=== PATIENT | female | born 1940 | race Caucasian/White ===

== ENCOUNTER 2017-07-07 13:18 | Day surgery (SDC) | payer MEDICARE, OTHER ==
[2017-07-07] MEDS ORDERED: Sodium Chloride 0.9% 5 ML Syringe FLUSH PRN (13:30)
[2017-07-07] MEDS ORDERED: Lactated Ringers 1,000 ML IV SCH (13:30)
[2017-07-07] MEDS ORDERED: Sodium Chloride 0.9% 1,000 ML IV SCH (13:30)
[2017-07-07] MEDS ORDERED: Gatifloxacin 0.5% Ophth Soln 2.5 ML Bot EYERT SCH (13:30)
[2017-07-07] MEDS: Phenylephrine 10% Ophth Soln 5 ML Bot EYERT SCH ×3 (13:59→14:41)
[2017-07-07] MEDS ORDERED: Balanced Salt Solution Plus Ophth Irrig 500 ML Bottle IOCULAR ONE (15:42)
[2017-07-07] MEDS ORDERED: Balanced Salt Solution Ophth Irrig 15 ML Bottle EYERT ONE (15:42)
[2017-07-07] MEDS ORDERED: Water For Irrigation,Sterile 1,500 ML Container IRR ONE (15:42)
[2017-07-07] MEDS ORDERED: Carbachol 0.01% Intraocular 1.5 ML Vial EYERT ONE (15:42)
[2017-07-07] MEDS ORDERED: Dexamethasone/Neomycin/Polymyxin B Ophth Oint 3.5 GM Tube EYERT ONE (15:43)
[2017-07-07] MEDS ORDERED: Lidocaine 1% 10 ML MDV INJECT ONE (15:43)
[2017-07-07] MEDS ORDERED: Lidocaine 2% with EPINEPHrine 1:100,000 20 ML MDV INJECT ONE (15:43)
[2017-07-07] MEDS ORDERED: EPINEPHrine 1 MG/ML SDV ONE (15:43)
[2017-07-07] MEDS ORDERED: Hyaluronate Sodium 1% 0.85 ML Syringe IOCULAR ONE (15:44)
[2017-07-07] MEDS ORDERED: Tetracaine HCl/PF 0.5% 4 ML Bottle EYEBOTH ONE (15:49)
--- NOTE | 2017-07-08 08:22 | OR ---
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 HISTORY: The patient presents at this time having difficulty seeing at a distance. She cannot see hymn numbers at the front of the synagogue. FINDINGS: The patient was taken to the operating room where appropriate anesthesia, sedation and monitoring were provided. A retrobulbar block was given on the right side. The eye was massaged and was found to be appropriately soft. The eye and eyelids were then prepped and draped in the usual sterile manner. A lid speculum was placed. A micro sharp blade was used to enter the anterior chamber inside the limbus superior-temporally. Xylocaine was irrigated into the eye at this site. Healon was irrigated into the eye through this site. Then using a 2.85 mm corneal blade an entry was made into the anterior chamber just inside the limbus temporally. Healon was again irrigated into the eye. Then using a cystitome, the anterior capsulorrhexis was created. The lens nucleus was hydrodissected using a 27 gauge cannula and balanced salt solution. The phacoemulsification unit was introduced through the temporal site and the Jacob spatula through the superior temporal site. In so doing, the lens nucleus was phacoemulsified. The cortical fragments of the lens were removed using the irrigation aspiration unit. The posterior capsule was polished. Healon was irrigated into the eye. The posterior chamber lens was inserted and rotated into position inside the capsular bag. The Healon was irrigated out of the eye. Miostat was irrigated into the eye and the pupil rounded nicely. A single interrupted 10-0 Nylon suture was placed through the temporal corneal incision site. Balanced salt solution was irrigated into the eye. The wound was tested and found to be tight. Maxitrol ointment was placed into the patient's right eye. The eyelids were closed and an eye patch and lee shield were placed. The patient left the operating room in good condition. /[id number]/MODL
== END 2017-07-07 16:15 | disposition home or self-care (01) ==
LOC: KA.SDS 13:18
PROVIDERS: ATTEND Ophthalmology
DX: H25.811 Combined forms of age-related cataract, right eye (principal); N18.3 Chronic kidney disease, stage 3 (moderate); I12.9 Hypertensive chronic kidney disease with stage 1 through stage 4 chronic kidney disease, or unspecified chronic kidney disease; K21.9 Gastro-esophageal reflux disease without esophagitis; F41.9 Anxiety disorder, unspecified; J44.9 Chronic obstructive pulmonary disease, unspecified; E78.5 Hyperlipidemia, unspecified; E66.9 Obesity, unspecified; Z79.899 Other long term (current) drug therapy; Z87.891 Personal history of nicotine dependence; Z68.34 Body mass index [BMI] 34.0-34.9, adult
CPT/HCPCS: 66984; A9270; J0171; J7120; 00142; C1780

== ENCOUNTER 2018-01-30 04:32 | Inpatient (IN) | payer MEDICARE, OTHER, MEDICAID ==
[2018-01-30] MEDS ORDERED: Sodium Chloride 0.9% 5 ML Syringe FLUSH PRN (04:54)
[2018-01-30] MEDS ORDERED: Albuterol/Ipratropium 3.0-0.5 MG/3 ML Neb Soln ONE (05:03)
[2018-01-30] MEDS ORDERED: methylPREDNISolone Sodium Succinate 125 MG/2 ML SDV IVPUSH ONE (05:06)
[2018-01-30] MEDS ORDERED: Albuterol/Ipratropium 3.0-0.5 MG/3 ML Neb Soln NEB ONE (05:06)
--- NOTE | 2018-01-30 05:12 | EDM.PDOC ---
ED HPI GENERAL MEDICAL PROBLEM - General Chief Complaint: Respiratory Problem Stated Complaint: SOB Time Seen by Provider: 01/30/18 05:05 Source of Information: Reports: Patient History Limitations: Reports: No Limitations - History of Present Illness INITIAL COMMENTS - FREE TEXT/NARRATIVE: Patient is a 77-year-old female who presents to the emergency department this morning via EMS with a complaint of shortness of breath. Patient states that 3 days ago she started developing some shortness of breath with activity, which progressed to intermittent wheezing, and at 2 a.m. this morning she found it very difficult to breathe and called 911. EMS responded and gave her breathing treatment in route. When patient presented to emergency department she was in mild respiratory distress and tachypnic. Patient denies fever, chest pain, nausea, vomiting, diarrhea, headache, dizziness, or recent change in medication. Onset: Gradual Duration: Day(s): Severity: Moderate Improves with: Reports: None Worsens with: Reports: None Associated Symptoms: Reports: No Other Symptoms Treatments PRIMARY CARE COORDINATOR: Reports: Breathing Treatments - Related Data Allergies Allergy/AdvReac Type Severity Reaction Status Date / Time No Known Drug Allergies Allergy NKDA Verified 01/30/18 04:50 Home Meds: Home Meds Albuterol Sulfate 2.5 mg IH Q4H PRN 07/06/17 [History] Anastrozole [Arimidex] 1 mg PO DAILY 07/06/17 [History] Fluticasone Propionate [Flovent HFA 100 mcg] 1 puff IH BID 07/06/17 [History] Ipratropium/Albuterol Sulfate [Combivent Respimat Inhal [place]] 1 puff INH Q6H PRN 07/06/17 [History] LORazepam 2 mg PO DAILY 07/06/17 [History] Losartan/Hydrochlorothiazide [Losartan-HCTZ 50-12.5 MG] 1 each PO DAILY [History] Omeprazole 20 mg PO DAILY 07/06/17 [History] Umeclidinium [place] [Incruse Ellipta*] 62.5 mcg IH DAILY 07/06/17 [History] atorvaSTATin Calcium [Atorvastatin Calcium] 20 mg PO QAM 07/06/17 [History] Multivitamin [Multi-Day Vitamins] 1 tab PO DAILY 07/07/17 [History] Past Medical History HEENT History: Reports: Cataract Cardiovascular History: Reports: High Cholesterol, Hypertension Respiratory History: Reports: COPD Gastrointestinal History: Reports: GERD [employer] History: Reports: Endocrine/Metabolic History: Reports: Obesity/BMI 30+ Oncologic (Cancer) History: Reports: Breast Other Oncologic History: radiation only - Infectious Disease History Infectious Disease History: Reports: Chicken Pox, Measles, Mumps - Past Surgical History HEENT Surgical History: Reports: Cataract Surgery, Tonsillectomy Cardiovascular Surgical History: Reports: None Respiratory Surgical History: Reports: None GI Surgical History: Reports: None Female Surgical History: Reports: Breast Biopsy Other Female Surgeries/Procedures: mastectomy Endocrine Surgical History: Reports: None Oncologic Surgical History: Reports: None Social & Family History - Caffeine Use Caffeine Use: Reports: Coffee, Soda Other Caffeine Use: diet ED ROS GENERAL - Review of Systems Review Of Systems: ROS reveals no pertinent complaints other than HPI. Constitutional: Reports: No Symptoms HEENT: Reports: No Symptoms Respiratory: Reports: Shortness of Breath, Wheezing Cardiovascular: Reports: No Symptoms Endocrine: Reports: No Symptoms GI/Abdominal: Reports: No Symptoms : Reports: No Symptoms Musculoskeletal: Reports: No Symptoms Skin: Reports: No Symptoms Neurological: Reports: No Symptoms Psychiatric: Reports: No Symptoms Hematologic/Lymphatic: Reports: No Symptoms Immunologic: Reports: No Symptoms ED EXAM, GENERAL - Physical Exam Exam: See Below Exam Limited By: No Limitations General Appearance: Alert, WD/WN, Mild Distress Eye Exam: Bilateral Eye: Normal Inspection Nose: Normal Inspection, Normal Mucosa, No Blood Throat/Mouth: Normal Inspection, Normal Oropharynx, No Airway Compromise Head: Atraumatic, Normocephalic Neck: Normal Inspection, Supple Respiratory/Chest: Respiratory Distress, Wheezing Cardiovascular: Normal Peripheral Pulses, No Murmur, Tachycardia GI/Abdominal: Normal Bowel Sounds, Soft, Non-Tender Back Exam: Normal Inspection. No: CVA Tenderness (L), CVA Tenderness (R) Extremities: Pedal Edema (2+ bilat) Neurological: Alert, Oriented, Normal Cognition Psychiatric: Normal Affect, Normal Mood Skin Exam: Warm, Dry, Intact, Normal Color, No Rash Lymphatic: No Adenopathy EKG INTERPRETATION EKG Date: 01/30/18 Time: 05:20 Rhythm: Other (Sinus tachycardia\) [place]: Normal P-Wave: Present QRS: Normal ST-T: Other (Nonspecific) Comparison: Change From Previous EKG Course - Vital Signs Last Recorded V/S: Last Vital Signs Temp 97.1 F 01/30/18 04:50 Pulse 105 H 01/30/18 04:50 Resp 40 H 01/30/18 04:50 BP 183/88 H 01/30/18 04:50 Pulse Ox 99 01/30/18 04:50 - Orders/Labs/Meds Orders: Active Orders 24 hr Category Date Time Status Oxygen Therapy [RC] PRN Care 01/30/18 04:54 Active RT Aerosol Therapy [RC] ASDIRECTED Care 01/30/18 05:06 Ordered Chest 1V Frontal [CR] Stat Exams 01/30/18 04:54 Ordered B-TYPE NATRIURETIC PEPTIDE,BNP [CHEM] Stat Lab 01/30/18 04:54 Ordered CBC WITH AUTO DIFF [HEME] Stat Lab 01/30/18 04:54 Ordered COMPREHENSIVE METABOLIC PN,CMP [CHEM] Stat Lab 01/30/18 04:54 Ordered Sodium Chloride 0.9% [Syrex Flush] Med 01/30/18 04:54 Active 5 ml FLUSH Q8HR PRN Saline Lock Insert [OM.PC] Stat Oth 01/30/18 04:54 Ordered Medication Orders Albuterol/Ipratropium (Duoneb 3.0-0.5 Mg/3 Ml) 3 ml NEB ONETIME ONE Stop: 01/30/18 05:07 Methylprednisolone Sodium Succinate (Solu-Medrol) 125 mg IVPUSH ONETIME ONE Stop: 01/30/18 05:07 Sodium Chloride (Syrex Flush) 5 ml FLUSH Q8HR PRN PRN Reason: Keep Vein Open Meds: Medications Generic Name Dose Route Start Last Admin Trade Name Freq PRN Reason Stop Dose Admin Albuterol/Ipratropium 3 ml 01/30/18 05:06 Duoneb 3.0-0.5 Mg/3 Ml NEB 01/30/18 05:07 ONETIME ONE Methylprednisolone Sodium Succinate 125 mg 01/30/18 05:06 Solu-Medrol IVPUSH 01/30/18 05:07 ONETIME ONE Sodium Chloride 5 ml 01/30/18 04:54 Syrex Flush FLUSH Q8HR PRN Keep Vein Open - Re-Assessments/Exams Free Text/Narrative Re-Assessment/Exam: 01/30/18 06:15 Patient afebrile, nontoxic appearing, vital signs stable, sats 95% on 2 L nasal cannula. Wheezing is greatly diminished with just some mild end expiratory persistent. Patient with respiratory rate now 16-20, looks and feels much better. Patient will be admitted and followed. Departure - Departure Time of Disposition: 06:14 Disposition: Admitted As Inpatient 67 Condition: Fair Clinical Impression: COPD exacerbation - Discharge Information Referrals: Samantha Hancock PA-C [Primary Care Provider] - - My Orders Last 24 Hours: My Active Orders 01/30/18 04:54 Oxygen Therapy [RC] PRN Chest 1V Frontal [CR] Stat B-TYPE NATRIURETIC PEPTIDE,BNP [CHEM] Stat CBC WITH AUTO DIFF [HEME] Stat COMPREHENSIVE METABOLIC PN,CMP [CHEM] Stat Sodium Chloride 0.9% [Syrex Flush] 5 ml FLUSH Q8HR PRN Saline Lock Insert [OM.PC] Stat 01/30/18 05:06 RT Aerosol Therapy [RC] ASDIRECTED - Assessment/Plan Last 24 Hours: My Active Orders 01/30/18 04:54 Oxygen Therapy [RC] PRN Chest 1V Frontal [CR] Stat B-TYPE NATRIURETIC PEPTIDE,BNP [CHEM] Stat CBC WITH AUTO DIFF [HEME] Stat COMPREHENSIVE METABOLIC PN,CMP [CHEM] Stat Sodium Chloride 0.9% [Syrex Flush] 5 ml FLUSH Q8HR PRN Saline Lock Insert [OM.PC] Stat 01/30/18 05:06 RT Aerosol Therapy [RC] ASDIRECTED Assessment:: COPD exacerbation Plan: Admit inpatient to Dr. Chavez's service
[2018-01-30] MEDS ORDERED: atorvaSTATin 10 MG Tab PO SCH (09:00)
[2018-01-30] MEDS ORDERED: HYDROCHLOROTHIAZIDE PO SCH (09:00)
[2018-01-30] MEDS ORDERED: LOSARTAN PO SCH (09:00)
[2018-01-30] MEDS: Fluticasone Propionate 110 MCG/Puff 12 GM Inhaler INH SCH ×2 (09:21→19:24)
[2018-01-30] MEDS: LORazepam 0.5 MG Tab PO SCH (09:21)
[2018-01-30] MEDS: Omeprazole 20 MG Cap.CR PO SCH ×2 (10:20→18:39)
[2018-01-30] MEDS: Hydrochlorothiazide 12.5 MG Cap PO SCH (10:20)
[2018-01-30] MEDS: Losartan 50 MG Tab PO SCH (10:20)
[2018-01-30] MEDS: Anastrozole 1 MG Tab **OWN MED PO SCH (10:21)
[2018-01-30] MEDS: Albuterol 0.083% 2.5 MG/3 ML Neb Soln NEB PRN ×3 (10:39→19:32)
[2018-01-30] MEDS: Albuterol/Ipratropium 3.0-0.5 MG/3 ML Neb Soln NEB SCH ×2 (16:59→23:08)
[2018-01-30] MEDS ORDERED: Hydrochlorothiazide 25 MG Tab PO ONE (18:27)
[2018-01-30] MEDS ORDERED: Losartan 50 MG Tab PO ONE (18:28)
[2018-01-30] MEDS: Codeine/guaiFENesin 100mg-10 MG/5 ML Syrup 10 ML Cup PO PRN (18:40)
[2018-01-30] MEDS: Bisacodyl 5 MG Tab PO SCH (21:42)
[2018-01-30] MEDS: atorvaSTATin 10 MG Tab PO SCH (21:42)
[2018-01-30] MEDS ORDERED: Calcium Carbonate 500 MG Tab.Chew PO PRN (22:10)
[2018-01-30] MEDS: Acetaminophen 325 MG Tab PO PRN (23:20)
[2018-01-31] MEDS: Aluminum Hydroxide/Magnesium Hydroxide/Simethicone Susp 30 ML Cup PO PRN ×2 (02:40→08:34)
[2018-01-31] MEDS: Codeine/guaiFENesin 100mg-10 MG/5 ML Syrup 10 ML Cup PO PRN ×3 (02:45→20:17)
[2018-01-31] MEDS: Albuterol/Ipratropium 3.0-0.5 MG/3 ML Neb Soln NEB SCH ×4 (06:23→22:01)
[2018-01-31] MEDS: Omeprazole 20 MG Cap.CR PO SCH (06:33)
[2018-01-31] MEDS: Fluticasone Propionate 110 MCG/Puff 12 GM Inhaler INH SCH ×2 (08:34→20:15)
[2018-01-31] MEDS ORDERED: Ondansetron 4 MG Tab.DIS ONE (08:58)
[2018-01-31] MEDS ORDERED: Ondansetron 4 MG Tab.DIS PO PRN (09:12)
[2018-01-31] MEDS: predniSONE 20 MG Tab PO SCH (09:26)
[2018-01-31] MEDS: Hydrochlorothiazide 12.5 MG Cap PO SCH (09:26)
[2018-01-31] MEDS: LORazepam 0.5 MG Tab PO SCH (09:27)
[2018-01-31] MEDS: Anastrozole 1 MG Tab **OWN MED PO SCH (09:29)
[2018-01-31] MEDS: Losartan 50 MG Tab PO SCH (09:31)
--- NOTE | 2018-01-31 09:53 | PCM.PN ---
- General Info Date of Service: 01/31/18 Admission Dx/Problem (Free Text): Patient is a 77-year-old female who was admitted through the emergency department yesterday for COPD exacerbation. Patient has a long history of COPD and was seen at the clinic by Dr. Chavez on Thursday, January 25. Patient was started on doxycycline then for upper respiratory infection. ER Chest x-ray showed no acute cardiopulmonary process. ER Lab values were within normal limits. She was afebrile, denied chest pain, and vital signs were stable. Patient admitted to the hospital as inpatient for further evaluation and resolution of symptoms. Functional Status: Reports: Pain Controlled - Review of Systems General: Reports: No Symptoms HEENT: Reports: No Symptoms Pulmonary: Reports: Shortness of Breath, Wheezing Cardiovascular: Reports: No Symptoms Gastrointestinal: Reports: No Symptoms Genitourinary: Reports: No Symptoms Musculoskeletal: Reports: No Symptoms Skin: Reports: No Symptoms Neurological: Reports: No Symptoms Psychiatric: Reports: No Symptoms - Patient Data Vitals - Most Recent: Last Vital Signs Temp 97.9 F 01/31/18 06:42 Pulse 83 01/31/18 06:42 Resp 20 01/31/18 06:42 BP 118/53 L 01/31/18 09:31 Pulse Ox 95 01/31/18 06:42 Weight - Most Recent: 185 lb 9.6 oz I&O - Last 24 Hours: Intake & Output 01/30/18 01/31/18 01/31/18 22:59 06:59 14:59 Intake Total 900 250 Output Total 425 350 Balance 475 -100 Imaging Impressions - Last 24 Hours: Chest x-ray shows COPD changes with no acute cardiopulmonary process Med Orders - Current: Current Medications Acetaminophen (Tylenol) 650 mg PO Q4H PRN PRN Reason: Pain (Mild 1-3)/fever Last Admin: 01/30/18 23:20 Dose: 650 mg Al Hydroxide/Mg Hydroxide (Mag-Al Plus) 30 ml PO QID PRN PRN Reason: Heartburn Last Admin: 01/31/18 08:34 Dose: 30 ml Albuterol (Proventil Neb Soln) 2.5 mg NEB Q2H PRN PRN Reason: Shortness Of Breath/wheezing Last Admin: 01/30/18 19:32 Dose: 2.5 mg Albuterol/Ipratropium (Duoneb 3.0-0.5 Mg/3 Ml) 3 ml NEB Q6HRRT [facility] Last Admin: 01/31/18 06:23 Dose: 3 ml Anastrozole (Arimidex) 1 mg PO DAILY [facility] Last Admin: 01/31/18 09:29 Dose: 1 mg Atorvastatin Calcium (Lipitor) 20 mg PO BEDTIME [facility] Last Admin: 01/30/18 21:42 Dose: 20 mg Bisacodyl (Dulcolax) 5 mg PO BEDTIME [facility] Last Admin: 01/30/18 21:42 Dose: 5 mg Calcium Carbonate/Glycine (Tums) 500 - 1,000 mg PO Q4H PRN PRN Reason: Indigestion Last Admin: 01/31/18 00:00 Dose: 1,000 mg Fluticasone Propionate (Flovent Hfa 110 Mcg) 0 gm INH BIDRT [facility] Last Admin: 01/31/18 08:34 Dose: 1 puff Guaifenesin/Codeine Phosphate (Robitussin Ac) 10 ml PO Q6H PRN PRN Reason: Cough Last Admin: 01/31/18 02:45 Dose: 10 ml Hydrochlorothiazide (Hydrochlorothiazide) 12.5 mg PO DAILY [facility] Last Admin: 01/31/18 09:26 Dose: 12.5 mg Lorazepam (Ativan) 2 mg PO DAILY [facility] Last Admin: 01/31/18 09:27 Dose: 2 mg Losartan Potassium (Cozaar) 50 mg PO DAILY [facility] Last Admin: 01/31/18 09:31 Dose: 50 mg Omeprazole (Omeprazole) 20 mg PO DAILY@0700 [facility] Last Admin: 01/31/18 06:33 Dose: 20 mg Ondansetron HCl (Zofran Odt) 4 mg PO Q6H PRN PRN Reason: Nausea/Vomiting Last Admin: 01/31/18 09:00 Dose: 4 mg Prednisone (Prednisone) 20 mg PO WITHBREAKFAST [facility] Last Admin: 01/31/18 09:26 Dose: 20 mg Sodium Chloride (Syrex Flush) 5 ml FLUSH Q8HR PRN PRN Reason: Keep Vein Open Last Admin: 01/31/18 09:30 Dose: 5 ml Umeclidinium [place] (Incruse Ellipta) 62.5 mcg IH DAILY [facility] Last Admin: 01/31/18 08:35 Dose: 1 puff Zolpidem Tartrate (Ambien) 5 mg PO BEDTIME PRN PRN Reason: Insomnia Discontinued Medications Albuterol/Ipratropium (Duoneb 3.0-0.5 Mg/3 Ml) 3 ml NEB ONETIME ONE Stop: 01/30/18 05:07 Last Admin: 01/30/18 05:05 Dose: 3 ml Albuterol/Ipratropium (Duoneb 3.0-0.5 Mg/3 Ml) Confirm Administered Dose 3 ml .ROUTE .STK-MED ONE Stop: 01/30/18 05:04 Last Admin: 01/30/18 05:26 Dose: Not Given Atorvastatin Calcium (Lipitor) 20 mg PO QAM [facility] Last Admin: 01/30/18 11:13 Dose: Not Given Doxycycline Hyclate (Vibramycin) 100 mg PO BID [facility] Last Admin: 01/30/18 10:37 Dose: 100 mg Hydrochlorothiazide (Hydrochlorothiazide) 12.5 mg PO ONETIME ONE Stop: 01/30/18 18:28 Last Admin: 01/30/18 18:38 Dose: 12.5 mg Losartan Potassium (Cozaar) 50 mg PO ONETIME ONE Stop: 01/30/18 18:29 Last Admin: 01/30/18 18:39 Dose: 50 mg Methylprednisolone Sodium Succinate (Solu-Medrol) 125 mg IVPUSH ONETIME ONE Stop: 01/30/18 05:07 Last Admin: 01/30/18 05:25 Dose: 125 mg Non-Formulary Medication (Losartan/Hydrochlorothiazide) 1 each PO DAILY [facility] Doxycycline 100 Mg (TabOwn Med) 100 each PO BID [facility] Last Admin: 01/31/18 09:29 Dose: 100 each Ondansetron HCl (Zofran Odt) Confirm Administered Dose 4 mg .ROUTE .STK-MED ONE Stop: 01/31/18 08:59 Last Admin: 01/31/18 09:20 Dose: Not Given - Exam Quality Assessment: Supplemental Oxygen General: Alert, Oriented HEENT: Pupils Equal, Pupils Reactive Neck: Supple Lungs: Wheezing (Faint End expiratory) Cardiovascular: Regular Rate, Regular Rhythm, No Murmurs GI/Abdominal Exam: Normal Bowel Sounds, Soft, Non-Tender, No Organomegaly, No Distention, No Abnormal Bruit, No Mass Extremities: Normal Inspection, Pedal Edema (1+ pedal edema bilateral / no change ) Skin: Warm, Dry, Intact Neurological: No New Focal Deficit Psy/Mental Status: Alert, Normal Affect, Normal Mood Physical Findings Comments:: Patient appears much improved, respiratory rate 12, currently on 2 L nasal cannula for sat of 95%. Denies chest pain or shortness of breath. - Problem List Review Problem List Initiated/Reviewed/Updated: Yes - My Orders Last 24 Hours: My Active Orders 01/30/18 09:00 Anastrozole [Arimidex] 1 mg PO DAILY Hydrochlorothiazide 12.5 mg PO DAILY LORazepam [Ativan] 2 mg PO DAILY Losartan [Cozaar] 50 mg PO DAILY 01/30/18 11:30 Umeclidinium [place] [Incruse Ellipta] 62.5 mcg IH DAILY 01/30/18 17:00 Albuterol/Ipratropium [DuoNeb 3.0-0.5 MG/3 ML] 3 ml NEB Q6HRRT 01/30/18 18:20 Codeine/guaiFENesin [Robitussin AC] 10 ml PO Q6H PRN 01/30/18 18:42 RESPIRATORY CULT [MREF] Routine 01/30/18 21:00 Bisacodyl [Dulcolax] 5 mg PO BEDTIME atorvaSTATin [Lipitor] 20 mg PO BEDTIME 01/30/18 22:10 Calcium Carbonate [Tums] 500 - 1,000 mg PO Q4H PRN 01/31/18 02:34 Alum Hydrox/Mag Hydrox/[place] [Mag-Al Plus] 30 ml PO QID PRN 01/31/18 08:00 predniSONE 20 mg PO WITHBREAKFAST 01/31/18 09:12 Ondansetron [Zofran ODT] 4 mg PO Q6H PRN 01/31/18 09:45 Zolpidem [Ambien] 5 mg PO BEDTIME PRN 01/31/18 09:46 Remove [place] Catheter [Urinary Catheter Removal] [RC] Per Unit Routine - Assessment Assessment:: Patient gradually improving. Currently on albuterol Atrovent nebulizers 4 times a day and 20 mg prednisone daily. Had an episode of gastric discomfort and vomiting 1 this morning. Patient given 4 mg Zofran ODT and symptoms resolved. Denies abdominal pain at this time. Patient's 2 daughters were at bedside and discussed initial ER presentation, progression, and plan with them in detail. - Plan Plan:: Patient steadily improving. Looks much better, in good spirits, and daughters at bedside. Daughters would like to take patient home with them upon discharge. Will anticipate discharge tomorrow if symptoms continue progressing well. Doxycycline had been given over the past 7 days and will be discontinued after dosage today. Patient remains afebrile and respiratory status much improved.
[2018-01-31] MEDS ORDERED: cefTRIAXone 1 GM Vial IVPUSH ONE (10:56)
[2018-01-31] MEDS: Albuterol 0.083% 2.5 MG/3 ML Neb Soln NEB PRN (14:41)
[2018-01-31] MEDS: atorvaSTATin 10 MG Tab PO SCH (20:15)
[2018-01-31] MEDS: Bisacodyl 5 MG Tab PO SCH (20:15)
[2018-01-31] MEDS: Acetaminophen 325 MG Tab PO PRN (20:16)
[2018-01-31] MEDS: Zolpidem 5 MG Tab PO PRN (22:12)
[2018-02-01] MEDS: Albuterol 0.083% 2.5 MG/3 ML Neb Soln NEB PRN ×4 (01:54→18:43)
[2018-02-01] MEDS: Codeine/guaiFENesin 100mg-10 MG/5 ML Syrup 10 ML Cup PO PRN ×2 (02:07→12:26)
[2018-02-01] MEDS: Albuterol/Ipratropium 3.0-0.5 MG/3 ML Neb Soln NEB SCH ×4 (05:20→23:24)
[2018-02-01] MEDS: Omeprazole 20 MG Cap.CR PO SCH (06:24)
[2018-02-01] MEDS: Fluticasone Propionate 110 MCG/Puff 12 GM Inhaler INH SCH ×2 (08:53→20:06)
[2018-02-01] MEDS: Hydrochlorothiazide 12.5 MG Cap PO SCH (09:27)
[2018-02-01] MEDS: Losartan 50 MG Tab PO SCH (09:27)
[2018-02-01] MEDS: predniSONE 20 MG Tab PO SCH (09:27)
[2018-02-01] MEDS: LORazepam 0.5 MG Tab PO SCH (09:28)
[2018-02-01] MEDS: UMECLIDINIUM BROMIDE 62.5 MCG INH SCH (09:53)
[2018-02-01] MEDS: DOXYCYCLINE 100 MG PO SCH ×2 (10:16→20:55)
[2018-02-01] MEDS: ANASTROZOLE 1 MG PO SCH (10:17)
[2018-02-01] MEDS: cefTRIAXone 1 GM Vial IVPUSH SCH (10:17)
[2018-02-01] MEDS: Anastrozole 1 MG Tab **OWN MED PO SCH (10:25)
[2018-02-01] MEDS ORDERED: methylPREDNISolone Sodium Succinate 125 MG/2 ML SDV IVPUSH ONE (13:00)
[2018-02-01] MEDS: Budesonide 0.5 MG/2 ML Neb Susp NEB SCH ×2 (13:16→20:54)
[2018-02-01] MEDS: Acetaminophen 325 MG Tab PO PRN (19:14)
--- NOTE | 2018-02-01 20:26 | PN ---
02/01/2018 PATIENT NAME: JERE MCKNIGHT SUBJECTIVE: This is a 77-year-old female who was admitted to the hospital through the emergency room on 01/30/2018. At that time, she was experiencing shortness of breath. She was brought to the emergency room by ambulance. She does have a past history of COPD. She was admitted with a diagnosis of COPD exacerbation. Today prior to admission, she was prescribed doxycycline for empiric coverage of chronic bronchitis. The patient does easily acquire pneumonia. She has been taking oral doxycycline in the hospital as well as oral prednisone at a low dose of 20 mg daily. She has also been found to have a urinary tract infection and received ceftriaxone 1 g yesterday intravenously. Cultures on the urine are pending. Initial white count on 01/30/2018 was 14.5, that has normalized today at 8.7. Her hemoglobin, however, has dropped from 11.7 to 9.4. Sodium was marginally low on admission at 133, today is 128. Chloride was 96 on admission and is now 88. Carbon dioxide is 34.1. BUN is elevated today at 28. AST is elevated at 44. Creatinine is normal at 1.12 with an estimated GFR of 47. She did have a BNP on admission which was 97. The patient has continued to have expiratory wheezing. She is on oral steroids and receiving DuoNebs as well as albuterol. She has not received nebulized steroids. The patient overall feels as though she has not improved considerably. She does not feel ready to go home. She still has some shortness of breath and requires oxygen to maintain a saturation of 94%. Her oxygen is currently at 3 L/minute. She also has not had a spectacular appetite and notes that she has not had a bowel movement since she has been admitted. She has been drinking prune juice with no results. She was eating breakfast at the time of my interview, and her appetite appears good. PHYSICAL EXAMINATION: VITAL SIGNS: Temp is 98.5, pulse 87, respirations 16, blood pressure 119/55, O2 saturation is 94% on 3 L of oxygen. SKIN: Pale, warm, dry to touch. CARDIAC: Reveals S1, S2 to be normal. Rate and rhythm are regular. No murmur, click, or gallop is auscultated. LUNGS: Have expiratory wheezes in all pierre. No rales. No significant rhonchi. ABDOMEN: Soft, nontender. Bowel sounds are present in all four quadrants. There is some mild generalized edema. IMPRESSION: 1. Acute exacerbation of chronic obstructive pulmonary disease and chronic bronchitis. She will continue on doxycycline 100 mg b.i.d. until discharge and after discharge for a total of 10 days. She will continue on oral prednisone. I did get a call after I had finished doing rounds on the patient with a report from the in-charge nurse that the patient has had episodes of coughing where she desaturates into the 80s and has a difficult time catching her breath. She does have cough medicine prescribed and has received it as well. I did give her a one time dose of Solu-Medrol 125 mg intravenously today. She will also start on Pulmicort 0.5 mg in 3 mL per nebulizer b.i.d. 2. Hyponatremia/hypochloremia. We will restrict her fluids to 1500 mL per day. Labs will be repeated tomorrow to include a CBC as well as CMP. 3. Anemia, question etiology. If still low tomorrow, we will add iron studies on to her lab work. 4. Constipation. She will continue with prune juice. I did offer milk of magnesia, however, she declined at this time. 5. Deconditioning. She will have a physical therapy consultation. We will keep her as an inpatient at this time. Upon discharge, it is unclear at this point whether she will be discharged into the care of her daughter who lives in [place]. The patient has friends in the area and would like to stay in this area; however, she lives alone. She will be a candidate for home health and other community services. There also may be a consideration for swing bed for strengthening for deconditioning. I will see her tomorrow. If there is any change in her condition, the nursing staff will notify me. I did discuss the case over the phone with Dr. Essence Chavez who is the patient's attending physician and primary care provider, and she agrees with my findings. /[id number]/MODL
[2018-02-01] MEDS: atorvaSTATin 10 MG Tab PO SCH (20:54)
[2018-02-01] MEDS: Bisacodyl 5 MG Tab PO SCH (20:54)
[2018-02-01] MEDS: Zolpidem 5 MG Tab PO PRN (23:24)
[2018-02-02] MEDS: Aluminum Hydroxide/Magnesium Hydroxide/Simethicone Susp 30 ML Cup PO PRN (00:24)
[2018-02-02] MEDS: Codeine/guaiFENesin 100mg-10 MG/5 ML Syrup 10 ML Cup PO PRN (03:01)
[2018-02-02] MEDS: Albuterol/Ipratropium 3.0-0.5 MG/3 ML Neb Soln NEB SCH ×2 (05:37→10:13)
[2018-02-02] MEDS: Omeprazole 20 MG Cap.CR PO SCH (06:43)
[2018-02-02] MEDS: Budesonide 0.5 MG/2 ML Neb Susp NEB SCH (07:20)
[2018-02-02] MEDS: ANASTROZOLE 1 MG PO SCH (08:12)
[2018-02-02] MEDS: cefTRIAXone 1 GM Vial IVPUSH SCH (08:12)
[2018-02-02] MEDS: Losartan 50 MG Tab PO SCH (08:14)
[2018-02-02] MEDS: predniSONE 20 MG Tab PO SCH (08:14)
[2018-02-02] MEDS: Hydrochlorothiazide 12.5 MG Cap PO SCH (08:14)
[2018-02-02] MEDS: LORazepam 0.5 MG Tab PO SCH (08:17)
[2018-02-02] MEDS: UMECLIDINIUM BROMIDE 62.5 MCG INH SCH (09:27)
[2018-02-02] MEDS: Fluticasone Propionate 110 MCG/Puff 12 GM Inhaler INH SCH (09:36)
[2018-02-02] MEDS: DOXYCYCLINE 100 MG PO SCH (09:58)
[2018-02-02] MEDS ORDERED: Codeine/guaiFENesin 100mg-10 MG/5 ML Syrup 10 ML Cup PO PRN (10:00)
[2018-02-02] MEDS ORDERED: Ondansetron 4 MG Tab.DIS PO PRN (10:00)
[2018-02-02] MEDS ORDERED: cefTRIAXone 1 GM Vial IVPUSH SCH (10:00)
[2018-02-02] MEDS ORDERED: Aluminum Hydroxide/Magnesium Hydroxide/Simethicone Susp 30 ML Cup PO PRN (10:00)
[2018-02-02] MEDS ORDERED: Zolpidem 5 MG Tab PO PRN (10:00)
[2018-02-03] MEDS ORDERED: Hydrochlorothiazide 12.5 MG Cap PO SCH (09:00)
--- NOTE | 2018-02-04 11:33 | DISCH ---
HOSPITAL COURSE: This is 77-year-old female who was admitted through the emergency room on 01/30/2018 with acute on chronic exacerbation of COPD. She has improved from a respiratory standpoint, however, has been noted to be deconditioned and has had a physical therapy consultation. She does qualify for swing-bed care for physical therapy to include strengthening. The patient does plan to go home after she is discharged from the hospital. She has been treated with doxycycline orally for empiric coverage of chronic bronchitis, and she has also been treated with Rocephin 1 g IV daily for coverage of a urinary tract infection. Urine cultures are pending. Lab results yesterday were significant for a hemoglobin drop from 11.7 the day prior to 9.4 yesterday. Today, her hemoglobin is 10.2. I do plan to add iron studies on to her lab draw from this morning. Her admission sodium was 133. Yesterday, her sodium went down to 128. We did start her on a fluid restriction. Today her sodium is 127. Chloride has improved from 88 to 91. White count has normalized from 14.5 on admission to 9.1. Urine cultures are still pending. The patient does feel somewhat better. She had several episodes of coughing yesterday with desaturations and a difficult time catching her breath. We did change her oral prednisone to IV Solu-Medrol. We also added budesonide per nebulizer. She had been taking Flovent per inhaler up until that point. She has improved and is requiring 2 L of oxygen, where she was requiring 3 L in the past. PHYSICAL EXAMINATION: VITAL SIGNS: Temp is 96.2, pulse 92, respirations 18, blood pressure 126/65, her oxygen saturation is 95 on 2 L of oxygen. SKIN: Warm and dry to touch with some generalized edema. CARDIAC: Reveals S1, S2 to be normal. Rate and rhythm are regular. No murmur, click, or gallop is auscultated. LUNGS: Sound clear today without the expiratory wheezes that were auscultated yesterday. I do not auscultate any rales or rhonchi today. IMPRESSION: 1. Chronic obstructive pulmonary disease. She will continue on oral doxycycline as well as DuoNeb and albuterol as well as budesonide per nebulizer. We will continue Solu-Medrol at 80 mg IV b.i.d. She is improving from a respiratory standpoint. 2. Deconditioning. She did have a physical therapy consultation yesterday with need for strengthening prior to discharge. She will be transferred to [facility] bed care today to complete physical therapy sessions. Her plan is to return home into a living situation where she lives by herself. She does have daughters who are visiting with her. One daughter, Britni, lives in [place] and would like her mother to come and live with her, however, the patient is resistant to this idea. 3. Anemia, etiology unclear. I did add iron studies on to her lab work today. 4. Hyponatremia. We will continue her fluid restriction of 1500 mL per day. We will add sodium chloride tablets 1 g b.i.d. 5. Urinary tract infection. She will continue on ceftriaxone until results of the urine culture are known. 6. Hypertension. This is well controlled with losartan. I have communicated my findings to Dr. Essence Chavez who is the patient's attending physician as well as her primary care provider. She agrees with my findings. /[id number]/MODL
== END 2018-02-02 10:00 | disposition swing bed (61) | DRG 191 ==
LOC: KA.ED 04:32 → KA.MS 06:08
PROVIDERS: ADMIT Internal Medicine; ATTEND Internal Medicine
DX: J44.1 Chronic obstructive pulmonary disease with (acute) exacerbation (principal); E78.00 Pure hypercholesterolemia, unspecified; N39.0 Urinary tract infection, site not specified; K21.9 Gastro-esophageal reflux disease without esophagitis; Z85.3 Personal history of malignant neoplasm of breast; E87.1 Hypo-osmolality and hyponatremia; M62.81 Muscle weakness (generalized); D64.9 Anemia, unspecified; I10 Essential (primary) hypertension; K59.00 Constipation, unspecified; Z79.899 Other long term (current) drug therapy
CPT/HCPCS: 36415; 71045; 80053; 81001; 83880; 84484; 85025; 87070; 87086; 87205; 94640; 94640-76; 96374; 97162-GP; 99285; A9270-GY; J0696; J2930; J7620-GY

== ENCOUNTER 2018-02-02 09:31 | Inpatient (IN) | payer MEDICARE, OTHER, MEDICAID ==
[2018-02-02] MEDS ORDERED: Albuterol 0.083% 2.5 MG/3 ML Neb Soln NEB PRN (10:26)
[2018-02-02] MEDS ORDERED: Calcium Carbonate 500 MG Tab.Chew PO PRN (10:31)
[2018-02-02] MEDS ORDERED: Ondansetron 4 MG Tab.DIS PO PRN (10:43)
[2018-02-02] MEDS ORDERED: Albuterol/Ipratropium 3.0-0.5 MG/3 ML Neb Soln NEB SCH (11:00)
[2018-02-02] MEDS: methylPREDNISolone Sodium Succinate 125 MG/2 ML SDV IVPUSH SCH ×2 (12:20→17:38)
[2018-02-02] MEDS: Sodium Chloride 1 GM Tab PO SCH ×2 (12:20→21:34)
[2018-02-02] MEDS ORDERED: Aluminum Hydroxide/Magnesium Hydroxide/Simethicone Susp 30 ML Cup PO PRN (13:00)
[2018-02-02] MEDS ORDERED: Sodium Chloride 0.9% 5 ML Syringe FLUSH PRN (14:00)
[2018-02-02] MEDS: Albuterol/Ipratropium 3.0-0.5 MG/3 ML Neb Soln NEB SCH ×2 (17:38→22:47)
[2018-02-02] MEDS: Budesonide 0.5 MG/2 ML Neb Susp NEB SCH (20:09)
[2018-02-02] MEDS: Codeine/guaiFENesin 100mg-10 MG/5 ML Syrup 10 ML Cup PO PRN (20:27)
[2018-02-02] MEDS: atorvaSTATin 10 MG Tab PO SCH (21:32)
[2018-02-02] MEDS: Bisacodyl 5 MG Tab PO SCH (21:32)
[2018-02-02] MEDS: DOXYCYCLINE 100 MG PO SCH (21:33)
[2018-02-02] MEDS: Zolpidem 5 MG Tab PO PRN (21:51)
[2018-02-03] MEDS: Codeine/guaiFENesin 100mg-10 MG/5 ML Syrup 10 ML Cup PO PRN ×3 (03:56→20:12)
[2018-02-03] MEDS: Albuterol/Ipratropium 3.0-0.5 MG/3 ML Neb Soln NEB SCH ×4 (06:17→22:41)
[2018-02-03] MEDS: Omeprazole 20 MG Cap.CR PO SCH (06:20)
[2018-02-03] MEDS: Budesonide 0.5 MG/2 ML Neb Susp NEB SCH ×2 (07:37→19:54)
[2018-02-03] MEDS ORDERED: predniSONE 20 MG Tab PO SCH (08:00)
[2018-02-03] MEDS: methylPREDNISolone Sodium Succinate 125 MG/2 ML SDV IVPUSH SCH ×2 (08:34→16:12)
[2018-02-03] MEDS: Losartan 50 MG Tab PO SCH (08:39)
[2018-02-03] MEDS: Sodium Chloride 1 GM Tab PO SCH ×2 (08:40→20:00)
[2018-02-03] MEDS: Hydrochlorothiazide 12.5 MG Cap PO SCH (08:40)
[2018-02-03] MEDS: DOXYCYCLINE 100 MG PO SCH ×2 (08:42→20:00)
[2018-02-03] MEDS: ANASTROZOLE 1 MG PO SCH (08:42)
[2018-02-03] MEDS: cefTRIAXone 1 GM Vial IVPUSH SCH (08:42)
[2018-02-03] MEDS: LORazepam 0.5 MG Tab PO SCH (08:49)
[2018-02-03] MEDS: UMECLIDINIUM BROMIDE 62.5 MCG INH SCH (08:55)
[2018-02-03] MEDS ORDERED: Bisacodyl 10 MG Supp RECTAL PRN (09:14)
[2018-02-03] MEDS: Magnesium Hydroxide 400 MG/5 ML Susp 30 ML Cup PO PRN (11:44)
[2018-02-03] MEDS: Acetaminophen 325 MG Tab PO PRN (12:54)
[2018-02-03] MEDS: Bisacodyl 5 MG Tab PO SCH (20:00)
[2018-02-03] MEDS: atorvaSTATin 10 MG Tab PO SCH (20:00)
[2018-02-03] MEDS: Zolpidem 5 MG Tab PO PRN (22:54)
[2018-02-04] MEDS: Magnesium Hydroxide 400 MG/5 ML Susp 30 ML Cup PO PRN (05:23)
[2018-02-04] MEDS: Albuterol/Ipratropium 3.0-0.5 MG/3 ML Neb Soln NEB SCH ×4 (05:30→22:17)
[2018-02-04] MEDS: Omeprazole 20 MG Cap.CR PO SCH (06:17)
[2018-02-04] MEDS: Budesonide 0.5 MG/2 ML Neb Susp NEB SCH ×2 (07:24→20:33)
[2018-02-04 07:40] LABS: ANION GAP 4.5 mmol/L (5-15)
[2018-02-04] MEDS: methylPREDNISolone Sodium Succinate 125 MG/2 ML SDV IVPUSH SCH (08:30)
[2018-02-04] MEDS: cefTRIAXone 1 GM Vial IVPUSH SCH (08:32)
[2018-02-04] MEDS: DOXYCYCLINE 100 MG PO SCH ×2 (08:34→20:36)
[2018-02-04] MEDS: ANASTROZOLE 1 MG PO SCH (08:35)
[2018-02-04] MEDS: LORazepam 0.5 MG Tab PO SCH (08:35)
[2018-02-04] MEDS: Sodium Chloride 1 GM Tab PO SCH ×2 (08:36→20:36)
[2018-02-04] MEDS: Hydrochlorothiazide 12.5 MG Cap PO SCH (08:36)
[2018-02-04] MEDS: Losartan 50 MG Tab PO SCH (08:38)
[2018-02-04] MEDS ORDERED: Sodium Chloride 0.9% 250 ML IV SCH (09:00)
[2018-02-04] MEDS: UMECLIDINIUM BROMIDE 62.5 MCG INH SCH (09:22)
[2018-02-04] MEDS ORDERED: Sodium Chloride 0.9% 250 ML IV ONE (09:30)
[2018-02-04] MEDS: Polyethylene Glycol 3350 Powder 17 GM Packet PO SCH (09:39)
--- NOTE | 2018-02-04 11:29 | HP ---
HISTORY OF PRESENT ILLNESS: This is a 77-year-old female who is being admitted to [facility] bed for physical therapy treatments for deconditioning. The patient was admitted to the hospital on 01/30/2018 with acute on chronic COPD exacerbation. She has been treated with doxycycline as well as Rocephin. The doxycycline to cover the lungs and Rocephin to cover urinary tract infection. She has required initially oral steroids and now IV steroids. She is improving from a respiratory standpoint. She is using DuoNebs, albuterol, and budesonide per nebulizer. She has also had problems with hyponatremia, which is being treated with oral sodium chloride tablets starting today. She was found to be anemic as well and iron studies are pending. We did a urine culture and the results are pending. The Rocephin will be continued until the results of the urine culture is known. The patient does have a history of COPD and does acquire pneumonia easily. Prior to admission, she was started on doxycycline and then presented to the emergency room on 01/30 with a subsequent admission. She has a history of hypertension, which is well controlled with losartan as well as hydrochlorothiazide. She has a history of gastroesophageal reflux disease for which she uses omeprazole. She does have a history of congestive heart failure. Her BNP on admission was normal. PAST SURGICAL HISTORY: Includes cataract surgery, tonsillectomy, breast biopsy as well as mastectomy of the right breast. SOCIAL HISTORY: She does live alone. She has two daughters, which have been visiting her. She does not use any illicit drugs. She does not use tobacco products. She does drink coffee and diet soda with caffeine. REVIEW OF SYSTEMS: CONSTITUTIONAL: No fever, weight loss or weight gain, fatigue. No headache, visual changes or dysphagia. No chest pain or palpitations. RESPIRATORY: Please see HPI. GI: No abdominal pain, nausea, vomiting, diarrhea. She has had some constipation, and in inpatient, has been using prune juice. : No urinary complaints in terms of dysuria, urinary frequency, or hematuria. MUSCULOSKELETAL: No pain, decreased range of motion, or swelling of her extremities. She does have some deconditioning, which physical therapy is seeing her for. NEUROLOGIC: No neurological deficits. PHYSICAL EXAMINATION: VITAL SIGNS: She is afebrile, pulse is 92, respirations 18, blood pressure 126/65, O2 saturation is 95% on 2 L of oxygen. SKIN: Warm and dry to touch. CARDIAC: Reveals S1, S2 to be normal. Rate and rhythm are regular. No murmur, click, or gallop is auscultated. LUNGS: Have had expiratory wheezes in the past, however, today much improved with no wheezes auscultated today. Rales and rhonchi are not auscultated either. ABDOMEN: Soft, nontender. Bowel sounds present in all four quadrants. EXTREMITIES: There is some mild peripheral edema. IMPRESSION: 1. Chronic obstructive pulmonary disease, acute on chronic exacerbation. She has improved from a respiratory standpoint. She will continue on doxycycline for a total of 10 days. She will continue DuoNeb, albuterol as well as budesonide via nebulizer. She will continue on Solu-Medrol 80 mg b.i.d. and with plan to taper that as she continues to improve. 2. Deconditioning. Physical therapy will work with her to optimize her physical condition for plan to return home with possible home health and other community services to help her after she is discharged. 3. Hyponatremia. We will continue with fluid restriction today as well as add sodium chloride tablets 1 g b.i.d. 4. Urinary tract infection. This is being covered with IV ceftriaxone 1 g daily at this point. Urine cultures are pending. 5. Anemia. We have added iron studies on to her lab work. 6. Hypertension, well controlled with losartan as well as hydrochlorothiazide. 7. Gastroesophageal reflux disease, well controlled with omeprazole. 8. Congestive heart failure. This is not a factor with the patient's hospitalization. Her BNP on admission was normal. /[id number]/MODL
[2018-02-04] MEDS: Codeine/guaiFENesin 100mg-10 MG/5 ML Syrup 10 ML Cup PO PRN ×2 (12:10→19:24)
[2018-02-04] MEDS: Acetaminophen 325 MG Tab PO PRN (19:56)
[2018-02-04] MEDS ORDERED: Menthol 7.6 MG Sugar Free Lozenge PO PRN (20:35)
[2018-02-04] MEDS: Bisacodyl 5 MG Tab PO SCH (20:36)
[2018-02-04] MEDS: atorvaSTATin 10 MG Tab PO SCH (20:37)
[2018-02-04] MEDS: Zolpidem 5 MG Tab PO PRN (22:27)
[2018-02-05] MEDS: Albuterol/Ipratropium 3.0-0.5 MG/3 ML Neb Soln NEB SCH ×4 (05:42→22:46)
[2018-02-05] MEDS: Omeprazole 20 MG Cap.CR PO SCH (06:22)
[2018-02-05] MEDS: Budesonide 0.5 MG/2 ML Neb Susp NEB SCH ×2 (07:18→20:38)
[2018-02-05 08:08] LABS: ANION GAP 6.7 mmol/L (5-15)
[2018-02-05] MEDS: Umeclidinium Bromide 62.5 MCG 30 Puff Inhaler IH SCH (09:11)
[2018-02-05] MEDS: Polyethylene Glycol 3350 Powder 17 GM Packet PO SCH (09:29)
[2018-02-05] MEDS: Hydrochlorothiazide 12.5 MG Cap PO SCH (09:30)
[2018-02-05] MEDS: Anastrozole 1 MG Tab PO SCH (09:31)
[2018-02-05] MEDS: Losartan 50 MG Tab PO SCH (09:32)
[2018-02-05] MEDS: DOXYCYCLINE 100 MG PO SCH ×2 (09:32→20:46)
[2018-02-05] MEDS: Sodium Chloride 1 GM Tab PO SCH ×2 (09:33→20:46)
[2018-02-05] MEDS: methylPREDNISolone Sodium Succinate 125 MG/2 ML SDV IVPUSH SCH (09:39)
[2018-02-05] MEDS: LORazepam 0.5 MG Tab PO SCH (09:42)
[2018-02-05] MEDS: cefTRIAXone 1 GM Vial IVPUSH SCH (09:42)
[2018-02-05] MEDS: Codeine/guaiFENesin 100mg-10 MG/5 ML Syrup 10 ML Cup PO PRN (16:22)
[2018-02-05] MEDS: atorvaSTATin 10 MG Tab PO SCH (20:46)
[2018-02-05] MEDS: Bisacodyl 5 MG Tab PO SCH (20:46)
[2018-02-05] MEDS: Zolpidem 5 MG Tab PO PRN (22:56)
[2018-02-06] MEDS: Albuterol/Ipratropium 3.0-0.5 MG/3 ML Neb Soln NEB SCH ×4 (06:07→22:40)
[2018-02-06] MEDS: Omeprazole 20 MG Cap.CR PO SCH (06:17)
[2018-02-06] MEDS: Budesonide 0.5 MG/2 ML Neb Susp NEB SCH ×2 (08:37→21:07)
[2018-02-06] MEDS: Hydrochlorothiazide 12.5 MG Cap PO SCH (08:38)
[2018-02-06] MEDS: Losartan 50 MG Tab PO SCH (08:38)
[2018-02-06] MEDS: cefTRIAXone 1 GM Vial IVPUSH SCH (08:39)
[2018-02-06] MEDS: DOXYCYCLINE 100 MG PO SCH ×2 (08:39→21:15)
[2018-02-06] MEDS: Polyethylene Glycol 3350 Powder 17 GM Packet PO SCH (08:39)
[2018-02-06] MEDS: Sodium Chloride 1 GM Tab PO SCH ×2 (08:39→21:15)
[2018-02-06] MEDS: methylPREDNISolone Sodium Succinate 125 MG/2 ML SDV IVPUSH SCH (08:39)
[2018-02-06] MEDS: Magnesium Hydroxide 400 MG/5 ML Susp 30 ML Cup PO PRN (08:40)
[2018-02-06] MEDS: LORazepam 0.5 MG Tab PO SCH (08:47)
[2018-02-06] MEDS: Umeclidinium Bromide 62.5 MCG 30 Puff Inhaler IH SCH (08:48)
[2018-02-06] MEDS: Anastrozole 1 MG Tab PO SCH (08:49)
[2018-02-06] MEDS: atorvaSTATin 10 MG Tab PO SCH (21:15)
[2018-02-06] MEDS: Bisacodyl 5 MG Tab PO SCH (21:15)
[2018-02-07] MEDS: Albuterol/Ipratropium 3.0-0.5 MG/3 ML Neb Soln NEB SCH ×4 (06:00→23:13)
[2018-02-07] MEDS: Omeprazole 20 MG Cap.CR PO SCH (06:11)
[2018-02-07 08:07] LABS: ANION GAP 13.1 mmol/L (5-15)
[2018-02-07] MEDS: Budesonide 0.5 MG/2 ML Neb Susp NEB SCH ×2 (08:46→20:54)
[2018-02-07] MEDS: Sodium Chloride 1 GM Tab PO SCH ×2 (08:46→20:54)
[2018-02-07] MEDS: Losartan 50 MG Tab PO SCH (08:47)
[2018-02-07] MEDS: methylPREDNISolone Sodium Succinate 125 MG/2 ML SDV IVPUSH SCH (08:48)
[2018-02-07] MEDS: DOXYCYCLINE 100 MG PO SCH ×2 (08:48→20:55)
[2018-02-07] MEDS: Umeclidinium Bromide 62.5 MCG 30 Puff Inhaler IH SCH (08:49)
[2018-02-07] MEDS: cefTRIAXone 1 GM Vial IVPUSH SCH (08:49)
[2018-02-07] MEDS: Hydrochlorothiazide 12.5 MG Cap PO SCH (08:50)
[2018-02-07] MEDS: Anastrozole 1 MG Tab PO SCH (08:52)
[2018-02-07] MEDS: Polyethylene Glycol 3350 Powder 17 GM Packet PO SCH (08:52)
[2018-02-07] MEDS: LORazepam 0.5 MG Tab PO SCH (08:55)
[2018-02-07] MEDS: Codeine/guaiFENesin 100mg-10 MG/5 ML Syrup 10 ML Cup PO PRN (13:43)
[2018-02-07] MEDS: atorvaSTATin 10 MG Tab PO SCH (20:54)
[2018-02-07] MEDS: Bisacodyl 5 MG Tab PO SCH (20:54)
[2018-02-07] MEDS ORDERED: Bisacodyl 5 MG Tab PO PRN (23:29)
[2018-02-08] MEDS: Albuterol/Ipratropium 3.0-0.5 MG/3 ML Neb Soln NEB SCH ×2 (05:55→11:20)
[2018-02-08] MEDS: Omeprazole 20 MG Cap.CR PO SCH (06:15)
[2018-02-08] MEDS: Budesonide 0.5 MG/2 ML Neb Susp NEB SCH (07:43)
[2018-02-08] MEDS: cefTRIAXone 1 GM Vial IVPUSH SCH (08:31)
[2018-02-08] MEDS: LORazepam 0.5 MG Tab PO SCH (08:35)
[2018-02-08] MEDS: Polyethylene Glycol 3350 Powder 17 GM Packet PO SCH (08:36)
[2018-02-08] MEDS: Sodium Chloride 1 GM Tab PO SCH (08:38)
[2018-02-08] MEDS: Hydrochlorothiazide 12.5 MG Cap PO SCH (08:38)
[2018-02-08] MEDS: DOXYCYCLINE 100 MG PO SCH (08:38)
[2018-02-08] MEDS: Losartan 50 MG Tab PO SCH (08:38)
[2018-02-08] MEDS: methylPREDNISolone Sodium Succinate 125 MG/2 ML SDV IVPUSH SCH (08:39)
[2018-02-08] MEDS: Umeclidinium Bromide 62.5 MCG 30 Puff Inhaler IH SCH (08:49)
[2018-02-08] MEDS: Anastrozole 1 MG Tab PO SCH (08:55)
--- NOTE | 2018-02-08 09:42 | PCM.DCSUM1 ---
Discharge Summary - Hospital Course Free Text/Narrative:: Janina is being discharged from [facility] today. She was an inpatient from - 02/02/18 due to COPD exacerbation. She was also noted to be hyponatremic and salt tabs were started after a fluid restriction caused further worsening of her chronic kidney disease. She was treated with solumedrol, nebs, and doxycycline as well as rocephin, the former for COPD exacerbatino and the latter for UTI (culture negative, however). She did very well with these therapies and was transitioned to a [facility] stay from 02/02/18 - 02/08/18 for PT for strengthening. She is doing very well. Labs have normalized. She does not typically wear oxygen during the day but currently is requiring 2 L to keep sats in the mid 90's and will go home on continuous oxygen. She had, previously , used oxygen at night. She was noted to be anemic as well, iron studies are pending. Sputum culture was normal girma so antibiotics are being discontinued at discharge. Urine culture negative, antibiotics are being discontinued at discharge. She has a heart murmur, TTE will be ordered as an outpatient. She does not have a hx of heart failure and BNP checked with this hospitalization was WNL. She has a hx of CKD, this is stable. She has a hx of HTN, no changes to outpatient meds. She was noted to be hyponatremic, salt tabs started, had correction of sodium and chloride. These tabs will be discontinued at discharge and she will have follow-up labs in a week. At the time of discharge she was feeling markedly improved. She is no longer SOB and her strength has improved. She will be discharged to home with home health for nursing, PT and OT. She requires these services due to health teaching for medication management, to develop an in home therapy program. She will have an in home safety assessment and instruction as well as for strength and endurance training. She is home bound due to decreased strength due to fatigue and weakness as well as having an unsteady gait and exacerbation of her COPD. She will also have in home care from [facility], a [facility] nurse for med set-up as well as senior services for meals on wheels and a personal alert system will be set up by [facility]. Diagnosis: Stroke: No Modified [place] Scale: No Signif.Disability Despite Sympt.Able to Carry Out Usual Act./Duties Modified Oral Scale Score: 1 - Discharge Data Discharge Date: 02/08/18 Discharge Disposition: Home, W Home Health Agency 06 Condition: Good - Discharge Diagnosis/Problem(s) (1) Chronic kidney disease (CKD) SNOMED Code(s): 349528472 ICD Code: N18.9 - CHRONIC KIDNEY DISEASE, UNSPECIFIED Status: Acute Current Visit: Yes (2) Hypertension SNOMED Code(s): 16042427 ICD Code: I10 - ESSENTIAL (PRIMARY) HYPERTENSION Status: Acute Current Visit: Yes (3) COPD (chronic obstructive pulmonary disease) SNOMED Code(s): 79076850 ICD Code: J44.9 - CHRONIC OBSTRUCTIVE PULMONARY DISEASE, UNSPECIFIED Status : Acute Current Visit: Yes (4) Gait instability SNOMED Code(s): 52479742, 298851178 ICD Code: R26.81 - UNSTEADINESS ON FEET Status: Acute Current Visit: Yes (5) Weakness SNOMED Code(s): 44298233 ICD Code: R53.1 - WEAKNESS Status: Acute Current Visit: Yes (6) Hyperlipidemia SNOMED Code(s): 93685238 ICD Code: E78.5 - HYPERLIPIDEMIA, UNSPECIFIED Status: Acute Current Visit : Yes (7) Peripheral edema SNOMED Code(s): 093898457 ICD Code: R60.9 - EDEMA, UNSPECIFIED Status: Acute Current Visit: Yes (8) COPD exacerbation SNOMED Code(s): 387824302 ICD Code: J44.1 - CHRONIC OBSTRUCTIVE PULMONARY DISEASE W (ACUTE) EXACERBATION Status: Acute Current Visit: No (9) Anemia SNOMED Code(s): 704625365 ICD Code: D64.9 - ANEMIA, UNSPECIFIED Status: Acute Current Visit: Yes (10) Heart murmur SNOMED Code(s): 10855185 ICD Code: R01.1 - CARDIAC MURMUR, UNSPECIFIED Status: Acute Current Visit : Yes - Patient Summary/Data Consults: Consultations 02/02/18 10:01 Consult to Physical Therapy [PT Evaluation and Treatment] [CONS] Routine Recommended Follow-up Testing/Procedures: Follow-up with PCP in 1 week and have a BMP. Will schedule for an outpatient TTE. - Patient Instructions Diet: Regular Diet as Tolerated Activity: As Tolerated - Discharge Plan Home Medications: Home Meds Albuterol Sulfate 2.5 mg IH Q4H PRN 07/06/17 [History] Anastrozole [Arimidex] 1 mg PO DAILY 07/06/17 [History] Fluticasone Propionate [Flovent HFA 100 mcg] 1 puff IH BID 07/06/17 [History] Ipratropium/Albuterol Sulfate [Combivent Respimat 20-100 Mcg] 1 puff INH Q6H PRN 07/06/17 [History] LORazepam 2 mg PO DAILY 07/06/17 [History] Losartan/Hydrochlorothiazide [Losartan-HCTZ 50-12.5 MG] 1 each PO DAILY [History] Omeprazole 20 mg PO ACBREAKFAST 07/06/17 [History] Umeclidinium [place] [Incruse Ellipta*] 1 puff IH DAILY 07/06/17 [History] atorvaSTATin Calcium [Atorvastatin Calcium] 20 mg PO BEDTIME 07/06/17 [History] Multivitamin [Multi-Day Vitamins] 1 tab PO DAILY 07/07/17 [History] - Discharge Summary/Plan Comment DC Time >30 min.: Yes Discharge Summary/Plan Comment: Total time for discharge was 45 minutes. - General Info Date of Service: 02/08/18 - Review of Systems Systems Review Comment: 10 point ROS obtained, all pertinent positives listed in HPI, all other systems are negative. - Patient Data Vitals - Most Recent: Last Vital Signs Temp 98.9 F 02/08/18 06:21 Pulse 80 02/08/18 07:43 Resp 24 H 02/08/18 06:21 BP 132/71 02/08/18 08:38 Pulse Ox 92 L 02/08/18 07:43 Weight - Most Recent: 188 lb 11.2 oz I&O - Last 24 hours: Intake & Output 02/07/18 02/08/18 02/08/18 22:59 06:59 14:59 Intake Total 400 150 Balance 400 150 Lab Results - Last 24 hrs: Laboratory Results - last 24 hr 02/08/18 02/08/18 Range/Units 07:20 07:20 WBC 13.7 H (5.0-10.0) 10^3/uL RBC 3.31 L (3.80-5.50) 10^6/uL Hgb 10.2 L (12.0-16.0) g/dL Hct 31.4 L (37.0-47.0) % MCV 95.1 H (82.0-92.0) fL MCH 30.8 (27.0-31.0) pg MCHC 32.4 (32.0-36.0) g/dL RDW 12.0 (11.5-14.5) % Plt Count 321 H (150-300) 10^3/uL MPV 7.2 L (7.4-10.4) fL Neut % (Auto) 75.9 H (50.0-70.0) % Lymph % (Auto) 17.0 L (20.0-40.0) % [place] % (Auto) 6.1 (2.0-8.0) % Eos % (Auto) 0.2 L (1.0-3.0) % Baso % (Auto) 0.8 (0.0-1.0) % Neut # (Auto) 10.5 H (2.5-7.0) 10^3/uL Lymph # (Auto) 2.3 (1.0-4.0) 10^3/uL [place] # (Auto) 0.8 (0.1-0.8) 10^3/uL Eos # (Auto) 0.0 L (0.1-0.3) 10^3/uL Baso # (Auto) 0.1 (0.0-0.1) 10^3/uL Sodium 140 (136-145) mmol/L Potassium 4.1 (3.3-5.3) mmol/L Chloride 101 (98-115) mmol/L Carbon Dioxide 35.1 H (21.0-32.0) mmol/L Anion Gap 8.0 (5-15) mmol/L BUN 31 H (6-25) mg/dL Creatinine 1.26 H (0.51-1.17) mg/dL Est Cr Clr Drug Dosing 30.04 mL/min Estimated GFR (MDRD) 41 mL/min Glucose 92 (70-110) mg/dL Calcium 9.0 (8.7-10.3) mg/dL Total Bilirubin 0.3 (0.2-1.0) mg/dL AST 19 (15-37) U/L ALT 39 (12-78) U/L Alkaline Phosphatase 74 (46-116) IU/L Total Protein 6.3 L (6.4-8.2) g/dL Albumin 3.10 (3.00-4.80) g/dL Med Orders - Current: Current Medications Acetaminophen (Tylenol) 650 mg PO Q4H PRN PRN Reason: Pain (Mild 1-3)/fever Last Admin: 02/04/18 19:56 Dose: 650 mg Al Hydroxide/Mg Hydroxide (Mag-Al Plus) 30 ml PO QID PRN PRN Reason: Heartburn Albuterol (Proventil Neb Soln) 2.5 mg NEB Q2H PRN PRN Reason: Shortness Of Breath/wheezing Last Admin: 02/03/18 03:52 Dose: 2.5 mg Albuterol/Ipratropium (Duoneb 3.0-0.5 Mg/3 Ml) 3 ml NEB Q6HRRT [facility] Last Admin: 02/08/18 05:55 Dose: 3 ml Anastrozole (Arimidex) 1 mg PO DAILY [facility] Last Admin: 02/08/18 08:55 Dose: 1 mg Atorvastatin Calcium (Lipitor) 20 mg PO BEDTIME [facility] Last Admin: 02/07/18 20:54 Dose: 20 mg Bisacodyl (Dulcolax) 5 mg PO BEDTIME [facility] Last Admin: 02/07/18 20:54 Dose: 5 mg Bisacodyl (Dulcolax) 10 mg RECTAL DAILY PRN PRN Reason: Constipation Last Admin: 02/03/18 09:50 Dose: 10 mg Bisacodyl (Dulcolax) 5 mg PO DAILY PRN PRN Reason: Constipation Last Admin: 02/07/18 20:54 Dose: 5 mg Budesonide (Pulmicort) 0.5 mg NEB BIDRT [facility] Last Admin: 02/08/18 07:43 Dose: 0.5 mg Calcium Carbonate/Glycine (Tums) 500 - 1,000 mg PO Q4H PRN PRN Reason: Indigestion Guaifenesin/Codeine Phosphate (Robitussin Ac) 10 ml PO Q6H PRN PRN Reason: Cough Last Admin: 02/07/18 13:43 Dose: 10 ml Hydrochlorothiazide (Hydrochlorothiazide) 12.5 mg PO DAILY [facility] Last Admin: 07/09/18 08:38 Dose: 12.5 mg Lorazepam (Ativan) 2 mg PO DAILY [facility] Last Admin: 02/08/18 08:35 Dose: 2 mg Losartan Potassium (Cozaar) 50 mg PO DAILY [facility] Last Admin: 02/08/18 08:38 Dose: 50 mg Magnesium Hydroxide (Milk Of Magnesia) 30 ml PO DAILY PRN PRN Reason: Constipation Last Admin: 02/06/18 08:40 Dose: 30 ml Menthol ([place] Sugar Free) 1 shekhar PO ASDIRECTED PRN PRN Reason: Sore Throat Last Admin: 02/04/18 21:30 Dose: 1 shekhar Omeprazole (Omeprazole) 20 mg PO DAILY@0700 [facility] Last Admin: 02/08/18 06:15 Dose: 20 mg Ondansetron HCl (Zofran Odt) 4 mg PO Q6H PRN PRN Reason: Nausea/Vomiting Polyethylene Glycol (Miralax) 17 gm PO DAILY [facility] Last Admin: 02/08/18 08:36 Dose: 17 gm Sodium Chloride (Syrex Flush) 5 ml FLUSH Q8HR PRN PRN Reason: Keep Vein Open Last Admin: 02/04/18 08:38 Dose: 5 ml Umeclidinium [place] (Incruse Ellipta) 62.5 mcg IH DAILY [facility] Last Admin: 02/08/18 08:49 Dose: 62.5 mcg Zolpidem Tartrate (Ambien) 5 mg PO BEDTIME PRN PRN Reason: Insomnia Last Admin: 02/05/18 22:56 Dose: 5 mg Discontinued Medications Albuterol/Ipratropium (Duoneb 3.0-0.5 Mg/3 Ml) 3 ml NEB Q6HRRT [facility] Ceftriaxone Sodium (Rocephin) 1 gm IVPUSH Q24H [facility] Last Admin: 02/08/18 08:31 Dose: 1 gm Sodium Chloride (Normal Saline) 250 mls @ 250 mls/hr IV ASDIRECTED [facility] Sodium Chloride (Normal Saline) 250 mls @ 250 mls/hr IV ONETIME@0930 ONE Stop: 02/04/18 10:29 Last Admin: 02/04/18 09:36 Dose: 250 mls/hr Methylprednisolone Sodium Succinate (Solu-Medrol) 80 mg IVPUSH BID@0800,1700 [facility] Last Admin: 02/04/18 08:30 Dose: 80 mg Methylprednisolone Sodium Succinate (Solu-Medrol) 80 mg IVPUSH DAILY [facility] Last Admin: 02/08/18 08:39 Dose: Not Given PtomDoxycycline (100 Mg Tab) 1 each PO BID [facility] Stop: 02/08/18 09:01 Last Admin: 02/08/18 08:38 Dose: 1 each PtomUmeclidinium [place] 62.5 Mcg 30 Puff Inhaler 1 each INH DAILY [facility] Last Admin: 02/04/18 09:22 Dose: 1 each PtomAnastrozole (1 Mg Tab) 1 each PO DAILY [facility] Last Admin: 02/04/18 08:35 Dose: 1 each Prednisone (Prednisone) 20 mg PO WITHBREAKFAST [facility] Sodium Chloride (Sodium Chloride) 1 gm PO BID [facility] Last Admin: 02/08/18 08:38 Dose: Not Given - Exam Quality Assessment: Reports: Supplemental Oxygen General: Reports: Alert, Oriented, Cooperative, No Acute Distress Lungs: Reports: Decreased Breath Sounds, Wheezing (Very minimal end expiratory wheezing at the apices of the lungs bilaterally.) Cardiovascular: Reports: Regular Rate, Regular Rhythm, Murmurs (2/6 systolic murmur) GI/Abdominal Exam: Normal Bowel Sounds
== END 2018-02-08 14:15 | disposition home health service (06) | DRG 191 ==
LOC: KA.MS 10:00
DX: J44.1 Chronic obstructive pulmonary disease with (acute) exacerbation (principal); N39.0 Urinary tract infection, site not specified; E87.1 Hypo-osmolality and hyponatremia; I13.0 Hypertensive heart and chronic kidney disease with heart failure and stage 1 through stage 4 chronic kidney disease, or unspecified chronic kidney disease; N18.9 Chronic kidney disease, unspecified; I50.9 Heart failure, unspecified; D64.9 Anemia, unspecified; R01.1 Cardiac murmur, unspecified; R26.81 Unsteadiness on feet; R53.1 Weakness; E78.5 Hyperlipidemia, unspecified; R60.9 Edema, unspecified; K21.9 Gastro-esophageal reflux disease without esophagitis; Z79.899 Other long term (current) drug therapy
CPT/HCPCS: 36415; 80048; 80053; 82728; 82747; 83540; 83550; 85014; 85025; 94640; 94640-76; 97110-GP; 97161-GP; A9270-GY; J0696; J2930; J7050; J7620-GY

== ENCOUNTER 2019-04-30 18:30 | Emergency (ER) | payer MEDICARE, OTHER ==
--- NOTE | 2019-04-30 18:39 | EDM.PDOC ---
ED HPI GENERAL MEDICAL PROBLEM - General Chief Complaint: General Stated Complaint: BAD COUGH/CONGESTION Time Seen by Provider: 04/30/19 18:34 Source of Information: Reports: Patient History Limitations: Reports: No Limitations - History of Present Illness INITIAL COMMENTS - FREE TEXT/NARRATIVE: 79 YO WF presents to ER complaining of productive cough and worsening shortness of breath x 1 day. Pt has COPD and is currently taking prednisone 5mg daily as well as Combivent and Flovent as needed. Pt reports she noticed her cough had become worse today prompting ER evaluation. Pt uses O2 at home and states she has had to increase the demand on O2. Pt denies fever/chills, no nausea/vomiting , no chest pain. Onset: Today Location: Reports: Generalized Severity: Mild Improves with: Reports: Rest Worsens with: Reports: Breathing Associated Symptoms: Reports: Cough, cough w sputum, Shortness of Breath. Denies: Chest Pain, Diaphoresis, Fever/Chills, Nausea/Vomiting, Weakness - Related Data Allergies Allergy/AdvReac Type Severity Reaction Status Date / Time No Known Drug Allergies Allergy NKDA Verified 04/30/19 18:46 Home Meds: Home Meds Albuterol Sulfate 2.5 mg IH Q4H PRN 07/06/17 [History] Anastrozole [Arimidex] 1 mg PO DAILY 07/06/17 [History] Fluticasone Propionate [Flovent HFA 100 mcg] 1 puff IH BID 07/06/17 [History] Ipratropium/Albuterol Sulfate [Combivent Respimat 20-100 Mcg] 1 puff INH Q6H PRN 07/06/17 [History] LORazepam 2 mg PO DAILY 07/06/17 [History] Losartan/Hydrochlorothiazide [Losartan-HCTZ 50-12.5 MG] 1 each PO DAILY [History] Omeprazole 20 mg PO ACBREAKFAST 07/06/17 [History] Umeclidinium [place] [Incruse Ellipta*] 1 puff IH DAILY 07/06/17 [History] atorvaSTATin Calcium [Atorvastatin Calcium] 20 mg PO BEDTIME 07/06/17 [History] Azithromycin [Zithromax] 250 mg PO DAILY #6 tab 04/30/19 [Rx] predniSONE [Prednisone] 20 mg PO DAILY #8 tablet 04/30/19 [Rx] Past Medical History HEENT History: Reports: Cataract Cardiovascular History: Reports: High Cholesterol, Hypertension Respiratory History: Reports: COPD, Other (See Below) Other Respiratory History: home o2 use Gastrointestinal History: Reports: GERD Genitourinary History: Reports: Urinary Incontinence, Other (See Below) Other Genitourinary History: 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: Neurological History: Reports: Migraines, Other (See Below) Other Neuro History: in the distant past Psychiatric History: Reports: Anxiety Endocrine/Metabolic History: Reports: Obesity/BMI 30+ Oncologic (Cancer) History: Reports: Breast Other Oncologic History: radiation only and mastectomy - Infectious Disease History Infectious Disease History: Reports: Chicken Pox, Measles, Mumps - Past Surgical History HEENT Surgical History: Reports: Cataract Surgery, Tonsillectomy Cardiovascular Surgical History: Reports: None Respiratory Surgical History: Reports: None GI Surgical History: Reports: None Female Surgical History: Reports: Breast Biopsy Other Female Surgeries/Procedures: mastectomy Endocrine Surgical History: Reports: None Oncologic Surgical History: Reports: Mastectomy Social & Family History - Family History Family Medical History: Noncontributory - Caffeine Use Caffeine Use: Reports: Coffee Other Caffeine Use: diet ED ROS GENERAL - Review of Systems Review Of Systems: See Below Constitutional: Reports: No Symptoms HEENT: Reports: No Symptoms Respiratory: Reports: Shortness of Breath, Wheezing, Cough, Sputum. Denies: Pleuritic Chest Pain, Hemoptysis Cardiovascular: Reports: No Symptoms Endocrine: Reports: No Symptoms GI/Abdominal: Reports: No Symptoms : Reports: No Symptoms Musculoskeletal: Reports: No Symptoms Skin: Reports: No Symptoms Neurological: Reports: No Symptoms Psychiatric: Reports: No Symptoms Hematologic/Lymphatic: Reports: No Symptoms Immunologic: Reports: No Symptoms ED EXAM, GENERAL - Physical Exam Exam: See Below Exam Limited By: No Limitations General Appearance: Alert, WD/WN, No Apparent Distress Ears: Normal External Exam, Normal Canal, Hearing Grossly Normal, Normal TMs Nose: Normal Inspection, Normal Mucosa, No Blood Throat/Mouth: Normal Inspection, Normal Lips, Normal Teeth, Normal Gums, Normal Oropharynx, Normal Voice, No Airway Compromise Head: Atraumatic, Normocephalic Neck: Normal Inspection, Supple, Non-Tender, Full Range of Motion Respiratory/Chest: No Respiratory Distress, No Accessory Muscle Use, Chest Non- Tender, Wheezing, Prolonged Expiration. No: Rhonchi, Accessory Muscle Use, Retractions, Splinting Cardiovascular: Normal Peripheral Pulses, Regular Rate, Rhythm, No Edema, No Gallop, No JVD, No Murmur, No Rub GI/Abdominal: Normal Bowel Sounds, Soft, Non-Tender, No Organomegaly, No Distention, No Abnormal Bruit, No Mass Back Exam: Normal Inspection, Full Range of Motion, NT Extremities: Normal Inspection, Normal Range of Motion, Non-Tender, Normal Capillary Refill, No Pedal Edema Neurological: Alert, Oriented, CN II-XII Intact, Normal Cognition, Normal Gait, Normal Reflexes, No Motor/Sensory Deficits Psychiatric: Normal Affect, Normal Mood Skin Exam: Warm, Dry, Intact, Normal Color, No Rash Lymphatic: No Adenopathy Course - Vital Signs Last Recorded V/S: Last Vital Signs Temp 35.8 C 04/30/19 19:09 Pulse 80 04/30/19 19:09 Resp 20 04/30/19 19:09 BP 156/76 H 04/30/19 19:09 Pulse Ox 98 04/30/19 19:22 - Orders/Labs/Meds Orders: Active Orders 24 hr Category Date Time Status Peripheral IV Care [RC] . DIRECTED Care 04/30/19 18:46 Ordered RT Aerosol Therapy [RC] ASDIRECTED Care 04/30/19 18:53 Ordered RT Aerosol Therapy [RC] ASDIRECTED Care 04/30/19 19:30 Ordered Chest 2V [CR] Stat Exams 04/30/19 18:34 Ordered Sodium Chloride 0.9% [Saline Flush] Med 04/30/19 18:45 Ordered 10 ml FLUSH Q8HR PRN Peripheral IV Insertion Adult [OM.PC] Routine Oth 04/30/19 18:45 Ordered Medication Orders Sodium Chloride (Saline Flush) 10 ml FLUSH Q8HR PRN PRN Reason: keep vein open Last Admin: 04/30/19 19:07 Dose: 10 ml Labs: Laboratory Tests 04/30/19 04/30/19 Range/Units 19:15 19:15 WBC 7.34 (5.00-10.00) 10^3/uL RBC 3.13 L (3.80-5.50) 10^6/uL Hgb 10.1 L (12.0-16.0) g/dL Hct 31.0 L (37.0-47.0) % MCV 99.0 H D (82.0-92.0) fL MCH 32.3 H (27.0-31.0) pg MCHC 32.6 (32.0-36.0) g/dL RDW 11.6 (11.5-14.5) % Plt Count 223 (150-400) 10^3/uL MPV 9.6 (7.4-10.4) fL Immature Gran % (Auto) 0.0 (0.0-5.0) % Neut % (Auto) 76.1 H (50.0-70.0) % Lymph % (Auto) 15.8 L (20.0-40.0) % [place] % (Auto) 6.0 (2.0-8.0) % Eos % (Auto) 1.6 (1.0-3.0) % Baso % (Auto) 0.5 (0.0-1.0) % Immature Gran # (Auto) 0.00 (0.00-0.50) 10^3/uL Neut # (Auto) 5.58 (2.50-7.00) 10^3/uL Lymph # (Auto) 1.16 (1.00-4.00) 10^3/uL [place] # (Auto) 0.44 (0.10-0.80) 10^3/uL Eos # (Auto) 0.12 (0.10-0.30) 10^3/uL Baso # (Auto) 0.04 (0.00-0.10) 10^3/uL Sodium 136 (136-145) mmol/L Potassium 4.3 (3.3-5.3) mmol/L Chloride 95 L (98-115) mmol/L Carbon Dioxide 33.6 H (21.0-32.0) mmol/L Anion Gap 11.7 (5-15) mmol/L BUN 23 (6-25) mg/dL Creatinine 1.08 (0.51-1.17) mg/dL Est Cr Clr Drug Dosing TNP Estimated GFR (MDRD) 49 mL/min Glucose 99 (75 - 99) mg/dL Calcium 9.3 (8.7-10.3) mg/dL Total Bilirubin 0.3 (0.2-1.0) mg/dL AST 19 (15-37) U/L ALT 21 (12-78) U/L Alkaline Phosphatase 86 (46-116) IU/L Total Protein 7.3 (6.4-8.2) g/dL Albumin 3.90 (3.00-4.80) g/dL Meds: Medications Generic Name Dose Route Start Last Admin Trade Name Freq PRN Reason Stop Dose Admin Sodium Chloride 10 ml 04/30/19 18:45 04/30/19 19:07 Saline Flush FLUSH 10 ml Q8HR PRN Administration keep vein open Discontinued Medications Generic Name Dose Route Start Last Admin Trade Name Freq PRN Reason Stop Dose Admin Albuterol/Ipratropium 3 ml 04/30/19 18:52 04/30/19 19:06 Duoneb 3.0-0.5 Mg/3 Ml NEB 04/30/19 18:53 3 ml ONETIME ONE Administration Albuterol/Ipratropium 3 ml 04/30/19 19:30 04/30/19 19:42 Duoneb 3.0-0.5 Mg/3 Ml NEB 04/30/19 19:31 3 ml ONETIME ONE Administration Methylprednisolone Sodium Succinate 125 mg 04/30/19 18:52 04/30/19 19:07 Solu-Medrol IVPUSH 04/30/19 18:53 125 mg ONETIME ONE Administration Prednisone 40 mg 04/30/19 19:40 Prednisone PO 04/30/19 19:41 ONETIME ONE - Radiology Interpretation Free Text/Narrative:: CXR- NAD - Re-Assessments/Exams Free Text/Narrative Re-Assessment/Exam: 04/30/19 19:41 Pt able to wean O2 back to 3L. Wheezing resolved after duoneb tx. Pt states she feels much better after treatment. Departure - Departure Time of Disposition: 19:46 Disposition: Home, Self-Care 01 Condition: Good Clinical Impression: COPD (chronic obstructive pulmonary disease) with chronic bronchitis COPD (chronic obstructive pulmonary disease) Qualifiers: COPD type: COPD with acute exacerbation Qualified Code(s): J44.1 - Chronic obstructive pulmonary disease with (acute) exacerbation - Discharge Information Prescriptions: Azithromycin [Zithromax] 250 mg PO DAILY #6 tab predniSONE [Prednisone] 20 mg PO DAILY #8 tablet Instructions: Chronic Obstructive Pulmonary Disease Exacerbation, [id number] Referrals: [place] [Primary Care Provider] - Forms: ED Department Discharge Additional Instructions: 1. discharge home 2. avoid lifting by arms 3. follow up with PCP for further evaluation and treatment 4. return to ER for worsening symptoms - My Orders Last 24 Hours: My Active Orders 04/30/19 18:34 Chest 2V [CR] Stat 04/30/19 18:45 Sodium Chloride 0.9% [Saline Flush] 10 ml FLUSH Q8HR PRN Peripheral IV Insertion Adult [OM.PC] Routine 04/30/19 18:46 Peripheral IV Care [RC] . DIRECTED 04/30/19 18:53 RT Aerosol Therapy [RC] ASDIRECTED 04/30/19 19:30 RT Aerosol Therapy [RC] ASDIRECTED - Assessment/Plan Last 24 Hours: My Active Orders 04/30/19 18:34 Chest 2V [CR] Stat 04/30/19 18:45 Sodium Chloride 0.9% [Saline Flush] 10 ml FLUSH Q8HR PRN Peripheral IV Insertion Adult [OM.PC] Routine 04/30/19 18:46 Peripheral IV Care [RC] . DIRECTED 04/30/19 18:53 RT Aerosol Therapy [RC] ASDIRECTED 04/30/19 19:30 RT Aerosol Therapy [RC] ASDIRECTED Assessment:: 1. COPD exacerbation Plan: 1. discharge home 2. nebulizer treatments every 4 hours and as needed 3. prednisone 40mg daily x 5 days- start tomorrow 4. zpak- start in 2 days if no improvement 5. follow up with PCP next 48-72 hours for recheck 6. return to ER for worsening symptoms
[2019-04-30] MEDS: Albuterol/Ipratropium 3.0-0.5 MG/3 ML Neb Soln NEB ONE ×2 (19:06→19:42)
[2019-04-30] MEDS: methylPREDNISolone Sodium Succinate 125 MG/2 ML SDV IVPUSH ONE (19:07)
[2019-04-30] MEDS: Sodium Chloride 0.9% 10 ML Syringe FLUSH PRN (19:07)
[2019-04-30 19:43] LABS: ANION GAP 11.7 mmol/L (5-15); CHLORIDE,CL 95 mmol/L (98-115); SODIUM,NA 136 mmol/L (136-145)
[2019-04-30] MEDS: predniSONE 20 MG Tab PO ONE (19:47)
--- NOTE | 2019-04-30 19:56 | CR ---
[id number] RAD/RAD Chest PA And Lateral EXAM: RAD Chest PA And Lateral INDICATION: COUGH COMPARISON: January 2018. DISCUSSION: Subtle left perihilar parenchymal opacity suspicious for pneumonia in the setting of infection. Right lung is clear. Findings are superimposed on changes of chronic obstructive pulmonary disease. IMPRESSION: Possible pneumonia in the left hilar region. Orlin Pedraza MD 04/30/19 1955 Thank you for allowing us to participate in the care of your patient.
== END 2019-04-30 20:00 | disposition home or self-care (01) ==
LOC: KA.ED 18:30
DX: J44.1 Chronic obstructive pulmonary disease with (acute) exacerbation (principal); E78.00 Pure hypercholesterolemia, unspecified; I10 Essential (primary) hypertension; K21.9 Gastro-esophageal reflux disease without esophagitis; E66.9 Obesity, unspecified; Z79.51 Long term (current) use of inhaled steroids; Z79.899 Other long term (current) drug therapy
CPT/HCPCS: 36415; 71046; 80053; 85025; 94640; 96374; 99285; J2930; 99284; J7620-GY

== ENCOUNTER 2019-11-17 17:48 | Emergency (ER) | payer MEDICARE, OTHER ==
[2019-11-17] MEDS ORDERED: Sodium Chloride 0.9% 10 ML Syringe FLUSH PRN (17:58)
[2019-11-17] MEDS ORDERED: Sodium Chloride 0.9% 1,000 ML IV ONE (17:58)
[2019-11-17 18:39] LABS: ANION GAP 10.6 mmol/L (5-15)
--- NOTE | 2019-11-17 18:44 | EDM.PDOC ---
ED HPI GENERAL MEDICAL PROBLEM - General Chief Complaint: General Stated Complaint: WEAK Time Seen by Provider: 11/17/19 18:27 Source of Information: Reports: Patient History Limitations: Reports: No Limitations - History of Present Illness INITIAL COMMENTS - FREE TEXT/NARRATIVE: Patient presents with complaint of feeling more tired than usual. This started today and she describes it as feeling more sleepy than usual but denies weakness. Her neighbor/friend told her she looks more pale than usual too so she came in for check. She has been getting her usual 7-8 hours of sleep every night she says. She has COPD but denies any worsening of that recently. She uses inhalers and nebs at home and is on oxygen at 3 liters chronically. She takes prednisone daily for the copd also; this has caused some ankle swelling but she denies CHF. - Related Data Allergies Allergy/AdvReac Type Severity Reaction Status Date / Time No Known Drug Allergies Allergy NKDA Verified 11/17/19 17:51 Home Meds: Home Meds Albuterol Sulfate 2.5 mg IH Q4H PRN 07/06/17 [History] Anastrozole [Arimidex] 1 mg PO DAILY 07/06/17 [History] Fluticasone Propionate [Flovent HFA 100 mcg] 1 puff IH BID 07/06/17 [History] Ipratropium/Albuterol Sulfate [Combivent Respimat 20-100 Mcg] 1 puff INH Q6H PRN 07/06/17 [History] LORazepam 2 mg PO DAILY 07/06/17 [History] Losartan/Hydrochlorothiazide [Losartan-HCTZ 50-12.5 MG] 1 each PO DAILY [History] Omeprazole 20 mg PO ACBREAKFAST 07/06/17 [History] Umeclidinium [place] [Incruse Ellipta*] 1 puff IH DAILY 07/06/17 [History] atorvaSTATin Calcium [Atorvastatin Calcium] 20 mg PO BEDTIME 07/06/17 [History] predniSONE [Prednisone] 5 mg PO DAILY 11/17/19 [History] Past Medical History HEENT History: Reports: Cataract Cardiovascular History: Reports: High Cholesterol, Hypertension Respiratory History: Reports: COPD, Other (See Below) Other Respiratory History: home o2 use Gastrointestinal History: Reports: GERD Genitourinary History: Reports: Urinary Incontinence, Other (See Below) Other 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: Neurological History: Reports: Migraines, Other (See Below) Other Neuro History: in the distant past Psychiatric History: Reports: Anxiety Endocrine/Metabolic History: Reports: Obesity/BMI 30+ Oncologic (Cancer) History: Reports: Breast Other Oncologic History: radiation only and mastectomy - Infectious Disease History Infectious Disease History: Reports: Chicken Pox, Measles, Mumps - Past Surgical History HEENT Surgical History: Reports: Cataract Surgery, Tonsillectomy Cardiovascular Surgical History: Reports: None Respiratory Surgical History: Reports: None GI Surgical History: Reports: None Female Surgical History: Reports: Breast Biopsy Other Female Surgeries/Procedures: mastectomy Endocrine Surgical History: Reports: None Oncologic Surgical History: Reports: Mastectomy Social & Family History - Family History Family Medical History: Noncontributory - Tobacco Use Smoking Status *Q: Former Smoker Used Tobacco, but Quit: Yes Month/Year Tobacco Last Used: 2006 - Caffeine Use Caffeine Use: Reports: Coffee Other Caffeine Use: diet - Recreational Drug Use Recreational Drug Use: No ED ROS GENERAL - Review of Systems Review Of Systems: See Below Constitutional: Denies: Fever, Chills, Malaise, Weakness HEENT: Reports: Other (denies sleep apnea). Denies: Ear Pain, Throat Pain, Vision Change Respiratory: Denies: Shortness of Breath (no acute change), Cough Cardiovascular: Denies: Chest Pain, Lightheadedness, Syncope Endocrine: Reports: Other (no thyroid problems) GI/Abdominal: Denies: Abdominal Pain, Vomiting : Reports: Frequency (she has been drinking more water lately and urinating a little more as a result). Denies: Dysuria, Flank Pain Musculoskeletal: Denies: Neck Pain, Shoulder Pain, Arm Pain, Back Pain, Hand Pain Skin: Reports: Pallor (see HPI). Denies: Cyanosis, Jaundice, Mottled, Diaphoresis Neurological: Denies: Confusion, Dizziness, Headache, Seizure, Syncope, Trouble Speaking, Difficulty Walking Psychiatric: Denies: Agitation, Anxiety, Confusion Hematologic/Lymphatic: Denies: Anemia (not aware of any but a review of labs for past 2 years shows a mild chronic anemia) ED EXAM, GENERAL - Physical Exam Exam: See Below Exam Limited By: No Limitations General Appearance: Alert, WD/WN, No Apparent Distress Eye Exam: Bilateral Eye: EOMI, Normal Inspection, PERRL Ears: Normal External Exam, Hearing Grossly Normal Nose: Normal Inspection, No Blood Throat/Mouth: Normal Inspection, Normal Lips, Normal Voice, No Airway Compromise Head: Atraumatic, Normocephalic Neck: Normal Inspection, Supple, Full Range of Motion Respiratory/Chest: No Respiratory Distress, Rales, Wheezing (expiratory, bilat) , Prolonged Expiration. No: Stridor Cardiovascular: Regular Rate, Rhythm, No Murmur GI/Abdominal: Normal Bowel Sounds, Soft, Non-Tender Back Exam: Normal Inspection, Full Range of Motion. No: CVA Tenderness (L), CVA Tenderness (R) Extremities: Normal Inspection, Normal Range of Motion Neurological: Alert, Oriented, Normal Cognition, No Motor/Sensory Deficits Psychiatric: Normal Affect, Normal Mood Skin Exam: Warm, Dry, Intact, Normal Color (appears normal to me but I haven't seen patient before for comparison) Course - Vital Signs Last Recorded V/S: Last Vital Signs Temp 97.6 F 11/17/19 18:17 Pulse 72 11/17/19 18:45 Resp 22 H 11/17/19 18:45 BP 119/58 L 11/17/19 18:45 Pulse Ox 93 L 11/17/19 18:17 - Orders/Labs/Meds Orders: Active Orders 24 hr Category Date Time Status Peripheral IV Care [RC] . DIRECTED Care 11/17/19 17:58 Active Sodium Chloride 0.9% [Saline Flush] Med 11/17/19 17:58 Active 10 ml FLUSH Q8HR PRN Peripheral IV Insertion Adult [OM.PC] Routine Oth 11/17/19 17:58 Ordered Medication Orders Sodium Chloride (Saline Flush) 10 ml FLUSH Q8HR PRN PRN Reason: keep vein open Last Admin: 11/17/19 18:16 Dose: 10 ml Labs: Laboratory Tests 11/17/19 11/17/19 11/17/19 Range/Units 06:15 18:02 18:10 WBC 7.54 (5.00-10.00) 10^3/uL RBC 2.98 L (3.80-5.50) 10^6/uL Hgb 9.7 L (12.0-16.0) g/dL Hct 30.7 L (37.0-47.0) % MCV 103.0 H (82.0-92.0) fL MCH 32.6 H (27.0-31.0) pg MCHC 31.6 L (32.0-36.0) g/dL RDW 11.8 (11.5-14.5) % Plt Count 213 (150-400) 10^3/uL MPV 9.6 (7.4-10.4) fL Immature Gran % (Auto) 0.1 (0.0-5.0) % Neut % (Auto) 72.1 H (50.0-70.0) % Lymph % (Auto) 15.6 L (20.0-40.0) % [place] % (Auto) 8.9 H (2.0-8.0) % Eos % (Auto) 2.5 (1.0-3.0) % Baso % (Auto) 0.8 (0.0-1.0) % Immature Gran # (Auto) 0.01 (0.00-0.50) 10^3/uL Neut # (Auto) 5.43 (2.50-7.00) 10^3/uL Lymph # (Auto) 1.18 (1.00-4.00) 10^3/uL [place] # (Auto) 0.67 (0.10-0.80) 10^3/uL Eos # (Auto) 0.19 (0.10-0.30) 10^3/uL Baso # (Auto) 0.06 (0.00-0.10) 10^3/uL Sodium (136-145) mmol/L Potassium (3.3-5.3) mmol/L Chloride (98-115) mmol/L Carbon Dioxide (21.0-32.0) mmol/L Anion Gap (5-15) mmol/L BUN (6-25) mg/dL Creatinine (0.51-1.17) mg/dL Est Cr Clr Drug Dosing mL/min Estimated GFR (MDRD) mL/min Glucose (75 - 99) mg/dL Calcium (8.7-10.3) mg/dL TSH, Ultra Sensitive 2.420 (0.340-4.820) uIU/mL Specimen Type . Urine Color Yellow (YELLOW) Urine Appearance Clear (CLEAR) Urine pH 5.5 (5.0-9.0) Ur Specific [place] 1.015 (1.005-1.030) Urine Protein Negative (NEGATIVE) mg/dL Urine Glucose (UA) Negative (NEGATIVE) mg/dL Urine Ketones Negative (NEGATIVE) mg/dL Urine Occult Blood Trace-intact H (NEGATIVE) Urine Nitrite Negative (NEGATIVE) Urine Bilirubin Negative (NEGATIVE) Urine Urobilinogen 0.2 (0.2-1.0) E.U./dL Ur Leukocyte Esterase Trace H (NEGATIVE) U Hyaline Cast (Auto) Urine RBC 0-5 (0-5) /HPF Urine WBC 10-20 H (0-5) /HPF Ur Epithelial Cells Moderate H /LPF Urine Bacteria Few (NONE TO FEW) /HPF 11/17/19 Range/Units 18:10 WBC (5.00-10.00) 10^3/uL RBC (3.80-5.50) 10^6/uL Hgb (12.0-16.0) g/dL Hct (37.0-47.0) % MCV (82.0-92.0) fL MCH (27.0-31.0) pg MCHC (32.0-36.0) g/dL RDW (11.5-14.5) % Plt Count (150-400) 10^3/uL MPV (7.4-10.4) fL Immature Gran % (Auto) (0.0-5.0) % Neut % (Auto) (50.0-70.0) % Lymph % (Auto) (20.0-40.0) % [place] % (Auto) (2.0-8.0) % Eos % (Auto) (1.0-3.0) % Baso % (Auto) (0.0-1.0) % Immature Gran # (Auto) (0.00-0.50) 10^3/uL Neut # (Auto) (2.50-7.00) 10^3/uL Lymph # (Auto) (1.00-4.00) 10^3/uL [place] # (Auto) (0.10-0.80) 10^3/uL Eos # (Auto) (0.10-0.30) 10^3/uL Baso # (Auto) (0.00-0.10) 10^3/uL Sodium 146 H (136-145) mmol/L Potassium 3.8 (3.3-5.3) mmol/L Chloride 103 (98-115) mmol/L Carbon Dioxide 36.2 H (21.0-32.0) mmol/L Anion Gap 10.6 (5-15) mmol/L BUN 32 H (6-25) mg/dL Creatinine 1.32 H (0.51-1.17) mg/dL Est Cr Clr Drug Dosing 27.78 mL/min Estimated GFR (MDRD) 39 mL/min Glucose 105 H (75 - 99) mg/dL Calcium 8.5 L (8.7-10.3) mg/dL TSH, Ultra Sensitive (0.340-4.820) uIU/mL Specimen Type Urine Color (YELLOW) Urine Appearance (CLEAR) Urine pH (5.0-9.0) Ur Specific [place] (1.005-1.030) Urine Protein (NEGATIVE) mg/dL Urine Glucose (UA) (NEGATIVE) mg/dL Urine Ketones (NEGATIVE) mg/dL Urine Occult Blood (NEGATIVE) Urine Nitrite (NEGATIVE) Urine Bilirubin (NEGATIVE) Urine Urobilinogen (0.2-1.0) E.U./dL Ur Leukocyte Esterase (NEGATIVE) U Hyaline Cast (Auto) Urine RBC (0-5) /HPF Urine WBC (0-5) /HPF Ur Epithelial Cells /LPF Urine Bacteria (NONE TO FEW) /HPF Meds: Medications Generic Name Dose Route Start Last Admin Trade Name Freq PRN Reason Stop Dose Admin Sodium Chloride 10 ml 11/17/19 17:58 11/17/19 18:16 Saline Flush FLUSH 10 ml Q8HR PRN Administration keep vein open Discontinued Medications Generic Name Dose Route Start Last Admin Trade Name Freq PRN Reason Stop Dose Admin Sodium Chloride 1,000 mls @ 999 mls/hr 11/17/19 17:58 11/17/19 18:14 Normal Saline IV 11/17/19 18:58 999 mls/hr .BOLUS ONE Administration - Re-Assessments/Exams Free Text/Narrative Re-Assessment/Exam: 11/17/19 19:16 Hg is 9.7 and in her normal range. CXR at baseline as well. Discussed findings and recommendations with patient. She is feeling fine she says and didn't really expect to find anything wrong just came because her friend thought she should with the pallor. She is discharged to home in stable condition. Departure - Departure Time of Disposition: 19:12 Disposition: Home, Self-Care 01 Condition: Good Clinical Impression: Feeling tired Chronic obstructive pulmonary disease (COPD) Qualifiers: COPD type: COPD with acute exacerbation Qualified Code(s): J44.1 - Chronic obstructive pulmonary disease with (acute) exacerbation - Discharge Information Referrals: Essence Novak MD [Primary Care Provider] - Forms: ED Department Discharge Additional Instructions: 1. Follow up with your PCP next week if this persists or if worsening recheck JANETTE. Sepsis Event Note - Evaluation Sepsis Screening Result: No Definite Risk - Focused Exam Vital Signs: Vital Signs Temp Pulse Resp BP Pulse Ox 11/17/19 18:45 72 22 H 119/58 L 11/17/19 18:17 97.6 F 77 22 H 109/58 L 93 L Date Exam was Performed: 11/17/19 Time Exam was Performed: 19:16 - My Orders Last 24 Hours: My Active Orders 11/17/19 17:58 Peripheral IV Care [RC] . DIRECTED Sodium Chloride 0.9% [Saline Flush] 10 ml FLUSH Q8HR PRN Peripheral IV Insertion Adult [OM.PC] Routine - Assessment/Plan Last 24 Hours: My Active Orders 11/17/19 17:58 Peripheral IV Care [RC] . DIRECTED Sodium Chloride 0.9% [Saline Flush] 10 ml FLUSH Q8HR PRN Peripheral IV Insertion Adult [OM.PC] Routine
--- NOTE | 2019-11-17 19:08 | CR ---
[id number] RAD/RAD Chest PA And Lateral EXAM: RAD Chest PA And Lateral CLINICAL DATA: FATIGUE COMPARISON: CORRELATION IS MADE WITH 2018 FINDINGS: The lungs are clear The cardiac silhouette is mildly enlarged There are surgical clips in the right axillary region IMPRESSION: NO ACUTE PROCESS. Kurt Mackay MD 11/17/19 0148 Thank you for allowing us to participate in the care of your patient.
== END 2019-11-17 19:32 | disposition home or self-care (01) ==
LOC: KA.ED 17:48
DX: J44.1 Chronic obstructive pulmonary disease with (acute) exacerbation (principal); R53.83 Other fatigue; E66.9 Obesity, unspecified; E78.00 Pure hypercholesterolemia, unspecified; I10 Essential (primary) hypertension; K21.9 Gastro-esophageal reflux disease without esophagitis; F41.9 Anxiety disorder, unspecified; Z68.36 Body mass index [BMI] 36.0-36.9, adult; Z87.891 Personal history of nicotine dependence; Z99.81 Dependence on supplemental oxygen
CPT/HCPCS: 36415; 71046; 80048; 81001; 84443; 85025; 96360; 99283; J7030; 99284

== ENCOUNTER 2019-11-28 11:15 | Observation (INO) | payer MEDICARE, OTHER ==
[2019-11-28] MEDS ORDERED: ALBUTEROL INH PRN (12:06)
[2019-11-28] MEDS ORDERED: Nitroglycerin 0.4 MG Tab.SL SL PRN (12:20)
[2019-11-28] MEDS ORDERED: Lidocaine 2% 100 MG/5 ML Syringe IVPUSH PRN (12:20)
[2019-11-28] MEDS ORDERED: Atropine 0.1 MG/ML 10 ML Syringe IVPUSH PRN (12:20)
[2019-11-28] MEDS ORDERED: EPINEPHrine 1:10,000 1 MG/10 ML Syringe IVPUSH PRN (12:20)
[2019-11-28] MEDS: Sodium Chloride 0.9% 1,000 ML IV SCH ×2 (13:00→21:24)
--- NOTE | 2019-11-28 13:08 | CR ---
[id number] RAD/RAD Chest PA And Lateral EXAM: FRONTAL AND LATERAL CHEST INDICATION: WHEEZING. COMPARISON: November 17, 2019. DISCUSSION: Scattered parenchymal scarring in the left lung is stable. Mild hyperinflation compatible with chronic obstructive pulmonary disease. No acute infiltrates. Normal heart size. IMPRESSION: 1. Hyperinflation is compatible with chronic obstructive pulmonary disease. No acute findings. Puneet Lama MD 11/28/19 [id number] Thank you for allowing us to participate in the care of your patient.
[2019-11-28 13:25] LABS: ANION GAP 9.4 mmol/L (5-15)
[2019-11-28] MEDS: Potassium Chloride 20 MEQ Tab.ER PO SCH (14:48)
[2019-11-28] MEDS: ALBUTEROL INH PRN (16:00)
[2019-11-28] MEDS: Budesonide 0.5 MG/2 ML Neb Susp NEB SCH (19:49)
[2019-11-28] MEDS ORDERED: Acetaminophen 500 MG Tab PO SCH (21:00)
[2019-11-28] MEDS ORDERED: Docusate Sodium 100 MG Cap PO SCH (21:00)
[2019-11-28] MEDS ORDERED: ATORVASTATIN 20 MG PO SCH (21:00)
[2019-11-29] MEDS ORDERED: guaiFENesin/Dextromethorphan 100-10 MG/5 ML Soln 5 ML Cup PO PRN (03:15)
[2019-11-29] MEDS ORDERED: guaiFENesin/Dextromethorphan 100-10 MG/5 ML Soln 5 ML Cup ONE (03:46)
[2019-11-29] MEDS: Sodium Chloride 0.9% 1,000 ML IV SCH (05:23)
[2019-11-29] MEDS: Budesonide 0.5 MG/2 ML Neb Susp NEB SCH (07:12)
[2019-11-29] MEDS ORDERED: Omeprazole 20 MG Cap.CR - PTOM PO SCH (07:30)
[2019-11-29] MEDS: ALBUTEROL INH PRN (08:01)
[2019-11-29 08:22] LABS: ANION GAP 10.7 mmol/L (5-15)
[2019-11-29] MEDS ORDERED: PREDNISONE 5 MG PO SCH (09:00)
[2019-11-29] MEDS ORDERED: Non-Formulary Medication 1 Each (Umeclidinium Bromide [Incruse Ellipta*] 1 PUFF) IH SCH (09:00)
[2019-11-29] MEDS ORDERED: LORAZEPAM 2 MG PO SCH (09:00)
[2019-11-29] MEDS ORDERED: ANASTROZOLE 1 MG PO SCH (09:00)
[2019-11-29] MEDS: Potassium Chloride 20 MEQ Tab.ER PO SCH (09:15)
--- NOTE | 2019-11-29 14:33 | DISCH ---
HISTORY OF PRESENT ILLNESS: This is 79-year-old female who was admitted to the hospital yesterday as an observation patient due to hypotension. She had presented to the clinic complaining of fatigue. She was found to have a blood pressure of 80/42. She was treated with IV fluids at 125 mL/h. We initially intended to give her a 500 mL bolus, however, the bolus was not given due to the fact that the patient's blood pressure had improved. The patient has COPD and was found to have wheezing as well. She uses Flovent at home as well as ProAir/albuterol per inhaler. She also uses Incruse Ellipta. During her time in the hospital, she did receive budesonide and this seemed to have been helpful for her. She had a potassium of 3.0 on admission. She was given a one time dose of potassium 40 mEq orally and her potassium has improved today at 4.0. Due to her hypotension, her losartan/hydrochlorothiazide was discontinued. She does use furosemide and this was held during her hospitalization, however, she may resume taking this at home. I reviewed her echocardiogram, which documented 1/4 diastolic dysfunction. Ejection fraction is fairly well preserved at 60% to 65%. Other lab results from today shows a white blood cell count normal at 5.02. She is slightly anemic with a hemoglobin of 9.1. This is a chronic problem for this patient. Sodium was 146. She does have chronic kidney disease with a BUN of 36 and a creatinine of 1.34. These are stable from her labs yesterday. GFR is 38. PHYSICAL EXAMINATION: VITAL SIGNS: Temperature is 98.3, pulse is 62, respirations 20, blood pressure 116/69, O2 saturation is 98%. The patient is dependent on oxygen. SKIN: Her skin is pale, warm, dry to touch. CARDIAC: Reveals S1, S2 to be normal. Rate and rhythm are regular. No murmur, click, or gallop is auscultated. LUNGS: Improved from yesterday, however, still have some inspiratory and expiratory wheezes throughout. ABDOMEN: Soft, nontender. Bowel sounds present in all 4 quadrants. She does have a trace of pedal edema. IMPRESSION: 1. Hypotension. This is improved with a blood pressure now of 116/69, it had been as high as 142/69. Losartan/hydrochlorothiazide was discontinued. 2. Chronic obstructive pulmonary disease with wheezing, oxygen dependent. This is improved. The patient will resume all of her medications that she was taking before at home. 3. Anemia, stable. 4. Chronic kidney disease, stable. 5. Hypercholesterolemia, stable on statin therapy. 6. Gastroesophageal reflux disease, stable on PPI. 7. History of right breast cancer, status post right mastectomy, she will continue anastrozole. She will follow up in the clinic with me in 7-10 days, sooner if need be. /[id number]/MODL
== END 2019-11-29 10:00 | disposition home or self-care (01) ==
LOC: KA.MS 11:15
DX: I95.9 Hypotension, unspecified (principal); J44.9 Chronic obstructive pulmonary disease, unspecified; N18.3 Chronic kidney disease, stage 3 (moderate); D63.1 Anemia in chronic kidney disease; E78.00 Pure hypercholesterolemia, unspecified; K21.9 Gastro-esophageal reflux disease without esophagitis; Z90.11 Acquired absence of right breast and nipple; Z85.3 Personal history of malignant neoplasm of breast; Z79.899 Other long term (current) drug therapy; Z87.891 Personal history of nicotine dependence
CPT/HCPCS: 36415; 71046; 80053; 81001; 84443; 85025; 93005; 94640; 96360; 96361; A9270; G0378; J7030

== ENCOUNTER 2020-03-09 11:14 | Inpatient (IN) | payer MEDICARE, OTHER ==
[2020-03-09] MEDS ORDERED: Albuterol/Ipratropium 3.0-0.5 MG/3 ML Neb Soln ONE (11:22)
[2020-03-09] MEDS ORDERED: Albuterol/Ipratropium 3.0-0.5 MG/3 ML Neb Soln NEB ONE (11:27)
--- NOTE | 2020-03-09 11:35 | EDM.PDOC ---
<Denis Gutierrez Crow - Last Filed: 03/09/20 11:30> ED HPI GENERAL MEDICAL PROBLEM - General Chief Complaint: Respiratory Problem Time Seen by Provider: 03/09/20 11:23 Source of Information: Reports: Patient History Limitations: Reports: No Limitations - History of Present Illness INITIAL COMMENTS - FREE TEXT/NARRATIVE: Patient presents, via ambulance, with dyspnea that started when she awoke this morning. She used her albuterol neb then, around 0700. She felt a little warm but didn't check her temp at home. Here she is afebrile. She has COPD. She is on oxygen at home full-time. - Related Data Allergies Allergy/AdvReac Type Severity Reaction Status Date / Time No Known Drug Allergies Allergy NKDA Verified 03/09/20 12:07 Home Meds: Home Meds Anastrozole [Arimidex] 1 mg PO DAILY 07/06/17 [History] LORazepam 2 mg PO DAILY 07/06/17 [History] Omeprazole 20 mg PO ACBREAKFAST 07/06/17 [History] Umeclidinium [place] [Incruse Ellipta*] 1 puff IH DAILY 07/06/17 [History] atorvaSTATin Calcium [Atorvastatin Calcium] 20 mg PO DAILY 07/06/17 [History] Acetaminophen [Tylenol Extra Strength] 1,000 mg PO BEDTIME 11/28/19 [History] Albuterol [Proair HFA] 1 - 2 puff INH Q4H PRN 11/28/19 [History] Docusate Sodium 200 mg PO BEDTIME 11/28/19 [History] Fluticasone Propionate [Flovent HFA 110 MCG] 1 puff INH BID 11/28/19 [History] Furosemide 20 mg PO DAILY 11/28/19 [History] predniSONE [Prednisone] 5 mg PO DAILY 11/28/19 [History] Dextromethorphan/guaiFENesin [Robitussin DM] 10 ml PO Q4H PRN cup 11/29/19 [Rx] Past Medical History HEENT History: Reports: Cataract Cardiovascular History: Reports: High Cholesterol, Hypertension Respiratory History: Reports: COPD, Other (See Below) Other Respiratory History: home o2 use Gastrointestinal History: Reports: GERD Genitourinary History: Reports: Urinary Incontinence, Other (See Below) Other Genitourinary History: with coughing [employer] History: Reports: Neurological History: Reports: Migraines, Other (See Below) Other Neuro History: in the distant past Psychiatric History: Reports: Anxiety Endocrine/Metabolic History: Reports: Obesity/BMI 30+ Oncologic (Cancer) History: Reports: Breast Other Oncologic History: radiation only and mastectomy - Infectious Disease History Infectious Disease History: Reports: Chicken Pox, Measles, Mumps - Past Surgical History HEENT Surgical History: Reports: Cataract Surgery, Tonsillectomy Cardiovascular Surgical History: Reports: None Respiratory Surgical History: Reports: None GI Surgical History: Reports: None Female Surgical History: Reports: Breast Biopsy Other Female Surgeries/Procedures: mastectomy Endocrine Surgical History: Reports: None Oncologic Surgical History: Reports: Mastectomy Social & Family History - Family History Family Medical History: Noncontributory - Caffeine Use Caffeine Use: Reports: Coffee Other Caffeine Use: diet ED ROS GENERAL - Review of Systems Review Of Systems: See Below Constitutional: Denies: Fever, Chills, Malaise, Weakness HEENT: Reports: No Symptoms Respiratory: Reports: Shortness of Breath, Cough (4 days) Cardiovascular: Denies: Chest Pain, Syncope GI/Abdominal: Denies: Abdominal Pain, Vomiting : Denies: Dysuria, Flank Pain Musculoskeletal: Reports: No Symptoms Skin: Denies: Cyanosis, Jaundice, Mottled, Pallor, Diaphoresis Neurological: Denies: Confusion, Dizziness, Seizure, Syncope, Trouble Speaking Psychiatric: Denies: Agitation, Anxiety, Confusion ED EXAM, GENERAL - Physical Exam Exam: See Below Exam Limited By: No Limitations General Appearance: Alert, WD/WN, No Apparent Distress Eye Exam: Bilateral Eye: EOMI, Normal Inspection, PERRL Ears: Normal External Exam, Hearing Grossly Normal Nose: Normal Inspection, No Blood Throat/Mouth: Normal Inspection, Normal Lips, Normal Voice, No Airway Compromise Head: Atraumatic, Normocephalic Neck: Normal Inspection, Supple, Non-Tender Respiratory/Chest: Decreased Breath Sounds, Crackles (faint in bases; worse with expiration), Wheezing (expiratory), Accessory Muscle Use, Prolonged Expiration. No: Rhonchi, Stridor Cardiovascular: Normal Peripheral Pulses, Regular Rate, Rhythm, No Gallop, No JVD, No Murmur Peripheral Pulses: 1+: Posterior Tibial (L), Posterior Tibial (R), 2+: Carotid (L), Carotid (R), Radial (L), Radial (R) GI/Abdominal: Soft, Non-Tender, No Organomegaly, No Distention Back Exam: Normal Inspection, Full Range of Motion. No: CVA Tenderness (L), CVA Tenderness (R) Extremities: Normal Inspection Neurological: Alert, Oriented, Normal Cognition, No Motor/Sensory Deficits Psychiatric: Normal Affect, Normal Mood Skin Exam: Warm, Dry, Intact, Normal Color, No Rash Departure - Departure Disposition: Admitted As Inpatient 67 Clinical Impression: COPD exacerbation - Discharge Information Referrals: Essence Novak MD [Primary Care Provider] - Forms: ED Department Discharge <Ty Weber - Last Filed: 03/09/20 14:37> Social & Family History - Family History Family Medical History: Noncontributory EKG INTERPRETATION EKG Date: 03/09/20 Time: 12:11 Rhythm: NSR P-Wave: Present QRS: RBBB ST-T: Normal QT: Normal Comparison: Other: Course - Vital Signs Last Recorded V/S: Last Vital Signs Temp 36.1 C 03/09/20 11:28 Pulse 92 03/09/20 13:07 Resp 24 H 03/09/20 13:07 BP 130/55 L 03/09/20 13:07 Pulse Ox 98 03/09/20 13:07 - Orders/Labs/Meds Orders: Active Orders 24 hr Category Date Time Status EKG Documentation Completion [RC] ASDIRECTED Care 03/09/20 12:02 Active RT Aerosol Therapy [RC] ASDIRECTED Care 03/09/20 11:27 Active CORONAVIRUS COVID-19 RAPID [MOLEC] Stat Lab 03/09/20 12:01 Ordered CULTURE SPUTUM + SMEAR [RM] Stat Lab 03/09/20 12:08 Ordered EKG 12 Lead [EK] Urgent Ther 03/09/20 12:02 Ordered Labs: Laboratory Tests 03/09/20 03/09/20 03/09/20 Range/Units 11:40 11:40 11:40 WBC 8.62 (5.00-10.00) 10^3/uL RBC 3.26 L (3.80-5.50) 10^6/uL Hgb 10.2 L (12.0-16.0) g/dL Hct 33.7 L (37.0-47.0) % MCV 103.4 H (82.0-92.0) fL MCH 31.3 H (27.0-31.0) pg MCHC 30.3 L (32.0-36.0) g/dL RDW 12.3 (11.5-14.5) % Plt Count 239 (150-400) 10^3/uL MPV 9.9 (7.4-10.4) fL Immature Gran % (Auto) 0.2 (0.0-5.0) % Neut % (Auto) 76.7 H (50.0-70.0) % Lymph % (Auto) 12.1 L (20.0-40.0) % [place] % (Auto) 7.5 (2.0-8.0) % Eos % (Auto) 2.9 (1.0-3.0) % Baso % (Auto) 0.6 (0.0-1.0) % Neut # (Auto) 6.61 (2.50-7.00) 10^3/uL Lymph # (Auto) 1.04 (1.00-4.00) 10^3/uL [place] # (Auto) 0.65 (0.10-0.80) 10^3/uL Eos # (Auto) 0.25 (0.10-0.30) 10^3/uL Baso # (Auto) 0.05 (0.00-0.10) 10^3/uL Immature Gran # (Auto) 0.02 (0.00-0.50) 10^3/uL Sodium 143 (136-145) mmol/L Potassium 3.9 (3.3-5.3) mmol/L Chloride 101 (98-115) mmol/L Carbon Dioxide 40.3 H (21.0-32.0) mmol/L Anion Gap 5.6 (5-15) mmol/L BUN 21 (6-25) mg/dL Creatinine 1.23 H (0.51-1.17) mg/dL Est Cr Clr Drug Dosing TNP Estimated GFR (MDRD) 42 mL/min Glucose 106 H (75 - 99) mg/dL Lactic Acid 0.5 (0.4-2.0) mmol/L Calcium 8.6 L (8.7-10.3) mg/dL Troponin I (0.00-0.070) ng/mL B-Natriuretic Peptide (0-100) pg/mL 03/09/20 Range/Units 11:40 WBC (5.00-10.00) 10^3/uL RBC (3.80-5.50) 10^6/uL Hgb (12.0-16.0) g/dL Hct (37.0-47.0) % MCV (82.0-92.0) fL MCH (27.0-31.0) pg MCHC (32.0-36.0) g/dL RDW (11.5-14.5) % Plt Count (150-400) 10^3/uL MPV (7.4-10.4) fL Immature Gran % (Auto) (0.0-5.0) % Neut % (Auto) (50.0-70.0) % Lymph % (Auto) (20.0-40.0) % [place] % (Auto) (2.0-8.0) % Eos % (Auto) (1.0-3.0) % Baso % (Auto) (0.0-1.0) % Neut # (Auto) (2.50-7.00) 10^3/uL Lymph # (Auto) (1.00-4.00) 10^3/uL [place] # (Auto) (0.10-0.80) 10^3/uL Eos # (Auto) (0.10-0.30) 10^3/uL Baso # (Auto) (0.00-0.10) 10^3/uL Immature Gran # (Auto) (0.00-0.50) 10^3/uL Sodium (136-145) mmol/L Potassium (3.3-5.3) mmol/L Chloride (98-115) mmol/L Carbon Dioxide (21.0-32.0) mmol/L Anion Gap (5-15) mmol/L BUN (6-25) mg/dL Creatinine (0.51-1.17) mg/dL Est Cr Clr Drug Dosing Estimated GFR (MDRD) mL/min Glucose (75 - 99) mg/dL Lactic Acid (0.4-2.0) mmol/L Calcium (8.7-10.3) mg/dL Troponin I 0.06 (0.00-0.070) ng/mL B-Natriuretic Peptide 38 (0-100) pg/mL Meds: Medications Discontinued Medications Generic Name Dose Route Start Last Admin Trade Name Shahzad PRN Reason Stop Dose Admin Albuterol/Ipratropium Confirm 03/09/20 11:22 03/09/20 11:45 Duoneb 3.0-0.5 Mg/3 Ml Administered 03/09/20 11:23 Not Given Dose 3 ml .ROUTE .STK-MED ONE Albuterol/Ipratropium 3 ml 03/09/20 11:27 03/09/20 11:45 Duoneb 3.0-0.5 Mg/3 Ml NEB 03/09/20 11:28 3 ml ONETIME ONE Administration Methylprednisolone Sodium Succinate Confirm 03/09/20 11:43 03/09/20 11:53 Solu-Medrol Administered 03/09/20 11:44 Not Given Dose 125 mg .ROUTE .STK-MED ONE Methylprednisolone Sodium Succinate 125 mg 03/09/20 11:47 03/09/20 11:54 Solu-Medrol IVPUSH 03/09/20 11:48 125 mg ONETIME ONE Administration - Re-Assessments/Exams Free Text/Narrative Re-Assessment/Exam: 03/09/20 12:27 Continues to have expiratory wheezes with prolonged expiratory cycle. +2 edema lower extremities she attributes being there fairly consistent since being on prednisone. Is able to speak freely with no significant difficulty in her speech. 1 event of persistent cough and did expectorate a good sputum which was obtained and sent to lab. Free Text/Narrative Re-Assessment/Exam: 03/09/20 13:21 . States feeling slightly better, lab work finalized other than waiting for COVID [address] call notification [address] Essence Zhou admission with direct report made to PARTHA Best for admission. 03/09/20 14:31 Departure - Departure Time of Disposition: 14:05 - Discharge Information *PRESCRIPTION DRUG MONITORING PROGRAM REVIEWED*: Not Applicable *COPY OF PRESCRIPTION DRUG MONITORING REPORT IN PATIENT ISABELL: Not Applicable Sepsis Event Note (ED) - Focused Exam Vital Signs: Vital Signs Temp Pulse Resp BP Pulse Ox 03/09/20 13:07 92 24 H 130/55 L 98 03/09/20 12:36 94 26 H 99 03/09/20 12:09 91 30 H 134/41 L 99 03/09/20 11:28 36.1 C 92 30 H 157/59 H 100 - Problem List & Annotations (1) COPD exacerbation SNOMED Code(s): 867751876 Code(s): J44.1 - CHRONIC OBSTRUCTIVE PULMONARY DISEASE W (ACUTE) EXACERBATION Status: Acute Current Visit: No (2) Chronic kidney disease (CKD) SNOMED Code(s): 039857496 Code(s): N18.9 - CHRONIC KIDNEY DISEASE, UNSPECIFIED Status: Acute Current Visit: No (3) Peripheral edema SNOMED Code(s): 490487174 Code(s): R60.9 - EDEMA, UNSPECIFIED Status: Acute Current Visit: No - My Orders Last 24 Hours: My Active Orders 03/09/20 12:01 CORONAVIRUS COVID-19 RAPID [MOLEC] Stat 03/09/20 12:02 EKG Documentation Completion [RC] ASDIRECTED EKG 12 Lead [EK] Urgent 03/09/20 12:08 CULTURE SPUTUM + SMEAR [RM] Stat - Assessment/Plan Last 24 Hours: My Active Orders 03/09/20 12:01 CORONAVIRUS COVID-19 RAPID [MOLEC] Stat 03/09/20 12:02 EKG Documentation Completion [RC] ASDIRECTED EKG 12 Lead [EK] Urgent 03/09/20 12:08 CULTURE SPUTUM + SMEAR [RM] Stat
[2020-03-09] MEDS ORDERED: methylPREDNISolone Sodium Succinate 125 MG/2 ML SDV ONE (11:43)
[2020-03-09] MEDS ORDERED: methylPREDNISolone Sodium Succinate 125 MG/2 ML SDV IVPUSH ONE (11:47)
--- NOTE | 2020-03-09 11:58 | CR ---
[id number] RAD/RAD Chest PA or AP 1V EXAM: RAD Chest PA or AP 1V INDICATION: DYSPNEA. COMPARISON: Multiple priors, most recent from February 23, 2020. DISCUSSION: Cardiomediastinal silhouette is unchanged in size and contour compared to the prior examination. No infiltrate, effusion, pneumothorax, or edema. Scarring in the left midlung, similar to numerous prior examinations. IMPRESSION: No acute findings or significant change from the prior examination. Orlin Pedraza MD 03/09/20 2246 Thank you for allowing us to participate in the care of your patient.
[2020-03-09 12:12] LABS: ANION GAP 5.6 mmol/L (5-15); CHLORIDE,CL 101 mmol/L (98-115); SODIUM,NA 143 mmol/L (136-145)
[2020-03-09] MEDS ORDERED: atorvaSTATin 10 MG Tab PO SCH (16:30)
[2020-03-09] MEDS: methylPREDNISolone Sodium Succinate 125 MG/2 ML SDV IVPUSH SCH (16:49)
[2020-03-09] MEDS: Albuterol/Ipratropium 3.0-0.5 MG/3 ML Neb Soln NEB SCH ×2 (16:51→21:26)
[2020-03-09] MEDS: Budesonide 0.5 MG/2 ML Neb Susp NEB SCH (19:44)
[2020-03-09] MEDS: atorvaSTATin 10 MG Tab PO SCH (21:23)
[2020-03-09] MEDS: Docusate Sodium 100 MG Cap PO SCH (21:23)
[2020-03-09] MEDS: Acetaminophen 500 MG Tab PO SCH (21:24)
[2020-03-09] MEDS: guaiFENesin/Dextromethorphan 100-10 MG/5 ML Soln 5 ML Cup PO PRN (23:43)
[2020-03-10] MEDS: Albuterol/Ipratropium 3.0-0.5 MG/3 ML Neb Soln NEB SCH ×6 (00:18→21:30)
[2020-03-10] MEDS: methylPREDNISolone Sodium Succinate 125 MG/2 ML SDV IVPUSH SCH ×3 (00:20→14:48)
[2020-03-10] MEDS: guaiFENesin/Dextromethorphan 100-10 MG/5 ML Soln 5 ML Cup PO PRN ×3 (03:43→22:30)
[2020-03-10] MEDS: Omeprazole 20 MG Cap.CR PO SCH (06:35)
[2020-03-10] MEDS: Budesonide 0.5 MG/2 ML Neb Susp NEB SCH ×2 (07:16→20:51)
[2020-03-10 08:05] LABS: ANION GAP 9.1 mmol/L (5-15)
[2020-03-10] MEDS: ANASTRAZOLE 1 MG PO SCH (08:19)
[2020-03-10] MEDS: predniSONE 5 MG Tab PO SCH (08:20)
[2020-03-10] MEDS: LORazepam 0.5 MG Tab PO SCH (08:21)
[2020-03-10] MEDS: UMECLIDINIUM PO SCH (08:23)
[2020-03-10] MEDS: Furosemide 20 MG Tab PO PRN (08:37)
[2020-03-10] MEDS ORDERED: Non-Formulary Medication 1 Each (Losartan/Hydrochlorothiazide 1 TAB) PO SCH (09:00)
[2020-03-10] MEDS: Docusate Sodium 100 MG Cap PO SCH (20:56)
[2020-03-10] MEDS: Acetaminophen 500 MG Tab PO SCH (20:56)
[2020-03-10] MEDS: atorvaSTATin 10 MG Tab PO SCH (20:56)
[2020-03-11] MEDS: Albuterol/Ipratropium 3.0-0.5 MG/3 ML Neb Soln NEB SCH ×6 (00:38→21:53)
[2020-03-11] MEDS: methylPREDNISolone Sodium Succinate 125 MG/2 ML SDV IVPUSH SCH ×3 (00:39→20:37)
[2020-03-11] MEDS: Omeprazole 20 MG Cap.CR PO SCH (06:30)
[2020-03-11] MEDS: Budesonide 0.5 MG/2 ML Neb Susp NEB SCH ×2 (07:34→19:57)
[2020-03-11] MEDS: LORazepam 0.5 MG Tab PO SCH (08:18)
[2020-03-11] MEDS: predniSONE 5 MG Tab PO SCH (08:18)
[2020-03-11 08:19] LABS: ANION GAP 8.3 mmol/L (5-15)
[2020-03-11] MEDS: UMECLIDINIUM PO SCH (08:19)
[2020-03-11] MEDS: ANASTRAZOLE 1 MG PO SCH (08:19)
[2020-03-11] MEDS: guaiFENesin/Dextromethorphan 100-10 MG/5 ML Soln 5 ML Cup PO PRN ×3 (09:58→21:49)
[2020-03-11] MEDS: Furosemide 20 MG Tab PO PRN (13:52)
[2020-03-11] MEDS: Docusate Sodium 100 MG Cap PO SCH (20:37)
[2020-03-11] MEDS: atorvaSTATin 10 MG Tab PO SCH (20:37)
[2020-03-11] MEDS: Acetaminophen 500 MG Tab PO SCH (20:37)
[2020-03-11] MEDS: Albuterol 8 GM Inhaler INH PRN (23:07)
[2020-03-12] MEDS: Albuterol/Ipratropium 3.0-0.5 MG/3 ML Neb Soln NEB SCH ×3 (01:39→10:15)
[2020-03-12] MEDS: guaiFENesin/Dextromethorphan 100-10 MG/5 ML Soln 5 ML Cup PO PRN ×3 (01:55→19:45)
[2020-03-12] MEDS: Omeprazole 20 MG Cap.CR PO SCH (06:30)
[2020-03-12] MEDS: Budesonide 0.5 MG/2 ML Neb Susp NEB SCH ×2 (07:33→19:46)
[2020-03-12] MEDS: LORazepam 0.5 MG Tab PO SCH (08:02)
[2020-03-12] MEDS: methylPREDNISolone Sodium Succinate 125 MG/2 ML SDV IVPUSH SCH ×2 (08:02→19:52)
[2020-03-12] MEDS: ANASTRAZOLE 1 MG PO SCH (08:03)
[2020-03-12] MEDS: predniSONE 5 MG Tab PO SCH (08:03)
[2020-03-12 08:28] LABS: ANION GAP 8.1 mmol/L (5-15)
[2020-03-12] MEDS: UMECLIDINIUM PO SCH (08:33)
[2020-03-12] MEDS: Menthol 7.6 MG Sugar Free Lozenge PO PRN ×2 (08:36→22:15)
[2020-03-12] MEDS: Albuterol 0.083% 2.5 MG/3 ML Neb Soln NEB SCH ×4 (09:37→20:59)
--- NOTE | 2020-03-12 09:47 | CR ---
[id number] RAD/RAD Chest PA And Lateral EXAM: RAD Chest PA And Lateral INDICATION: PRODUCTIVE COUGH. COMPARISON: March 09, 2020. DISCUSSION: Cardiomediastinal silhouette is normal in size and contour. Left basilar pulmonary infiltrate. Pulmonary hyperinflation. No pneumothorax or pleural effusion. IMPRESSION: Left basilar pulmonary infiltrate. This is new when compared to the prior study. Tio Hanson DO 03/12/20 0943 Thank you for allowing us to participate in the care of your patient.
--- NOTE | 2020-03-12 11:14 | PN ---
03/11/2020 PATIENT NAME: JERE MCKNIGHT HISTORY OF PRESENT ILLNESS: This is a 80-year-old female who was admitted through the emergency room on 03/09/2020 with a COPD exacerbation. She does have a history of severe COPD and is oxygen dependent at home. She is feeling much better. She has been receiving Solu-Medrol 80 mg t.i.d. with improvement in her lungs. She has not been up walking around much. There was some arguments among family members as far as long-term care placement versus going to live with the daughter in [place]. Kinesiotherapist will be consulted on Thursday. She will also have a physical therapy consultation on Thursday. Lab work from today does show a white count of 13.78, most likely related to steroids. Her hemoglobin was 10.2 on admission and now is 9.1. BUN and creatinine are 32 and 1.32 respectively. This is a bit higher than it was before; however, the patient does have a history of chronic renal insufficiency. PHYSICAL EXAMINATION: VITAL SIGNS: Temp is 97, pulse 93, respirations 22, blood pressure 142/75, O2 sat is 95% on 4 L of oxygen. SKIN: Pale, warm, dry to touch. CARDIAC: Reveals S1 and S2 to be normal. Rate and rhythm are regular. No murmur, click, or gallop is auscultated. LUNGS: Much improved from the day of admission and even improved from yesterday. There are just faint expiratory wheezes which are diffuse. ABDOMEN: Soft, nontender. Bowel sounds present in all four quadrants. There is no pedal edema. IMPRESSION: 1. Chronic obstructive pulmonary disease exacerbation. She is improving. We will back off the Solu-Medrol from t.i.d. to b.i.d. She does have a sputum culture pending from the emergency room. Kinesiotherapist and Physical Therapy will be consulted tomorrow for evaluation. We will continue all other medications as before. She is on budesonide as well. She was on Flovent at home and this was discontinued due to unavailability on formulary. 2. Breast cancer. She is on anastrozole. 3. Anxiety. She is taking lorazepam. 4. Gastroesophageal reflux disease, on PPI. 5. Hypercholesterolemia. She is on atorvastatin. 6. Constipation. She is on docusate sodium. 7. Chronic obstructive pulmonary disease with steroid and oxygen dependence. I did encourage the patient to be up walking more today as tolerated. /[id number]/MODL
--- NOTE | 2020-03-12 11:14 | PN ---
03/10/2020 PATIENT NAME: JERE MCKNIGHT HISTORY OF PRESENT ILLNESS: This is a 80-year-old female who was admitted through the emergency room on 03/09/2020. She was dyspneic when she woke up that morning. She did have a clinic appointment, however, felt like she was getting worse and called the ambulance. She did not have a fever. She does have severe COPD and is oxygen dependent. Admission lab work showed a hemoglobin of 10.2. White blood cell count was normal. Carbon dioxide was 40.3. Creatinine was elevated at 1.23; however, she does have some chronic kidney disease. Today, her lab work is stable as well. Her hemoglobin did drop to 9.7. Creatinine is 1.26. CO2 has improved to 35. She does have an elevated glucose, most likely from steroids. She is receiving Solu-Medrol 80 mg t.i.d. She does appear quite improved from yesterday. She is not quite short of breath. She does complain that the albuterol and the DuoNeb per nebulizer make her shaky. The patient states that she had three good bowel movements this morning, which has made her feel quite a bit better. She reports when she gets constipated, she has a more difficult time breathing. MEDICAL HISTORY: Includes breast cancer, status post right mastectomy, gastroesophageal reflux disease. COPD. Hypercholesterolemia. Constipation. Fluid retention. PHYSICAL EXAMINATION: VITAL SIGNS: Her temp is 97.4, pulses 91, respirations 20, blood pressure 142/76, O2 sat is 98% on 4 L of oxygen. SKIN: Warm and dry to touch. CARDIAC: Reveals S1 and S2 to be normal. Rate and rhythm are regular. No murmur, click, or gallop is auscultated. LUNGS: Do have some wheezing which is much improved from yesterday. Wheezing is worse in the right lower lobe than in other lung pierre. ABDOMEN: Obese, soft, nontender. Bowel sounds present in all four quadrants. There is no pedal edema. IMPRESSION: Chronic obstructive pulmonary disease exacerbation, improved. PLAN: We will continue the IV steroids with plan to decrease Solu-Medrol to 80 mg b.i.d. tomorrow from t.i.d. She will continue oxygen. I will request a social service consultation for Thursday to discuss snf placement. Apparently, there is some arguments between two of the patient's daughters about going to the snf versus going to [place] to live with her daughter. I also requested a physical therapy consultation on Thursday. /[id number]/MODL
[2020-03-12] MEDS ORDERED: Azithromycin 500 MG in Sodium Chloride 0.9% 250 ML IV ONE (11:23)
[2020-03-12] MEDS: Sodium Chloride 0.9% 100 ML IV SCH (11:56)
[2020-03-12] MEDS ORDERED: Albuterol 0.083% 2.5 MG/3 ML Neb Soln NEB SCH (13:00)
[2020-03-12] MEDS: cefTRIAXone 1 GM Vial IVPUSH SCH (13:19)
[2020-03-12] MEDS: Albuterol 8 GM Inhaler INH PRN (15:10)
[2020-03-12] MEDS: atorvaSTATin 10 MG Tab PO SCH (20:59)
[2020-03-12] MEDS: Acetaminophen 500 MG Tab PO SCH (20:59)
[2020-03-12] MEDS: Docusate Sodium 100 MG Cap PO SCH (20:59)
[2020-03-13] MEDS: guaiFENesin/Dextromethorphan 100-10 MG/5 ML Soln 5 ML Cup PO PRN ×3 (01:05→09:41)
[2020-03-13] MEDS: Albuterol 0.083% 2.5 MG/3 ML Neb Soln NEB SCH ×3 (01:05→09:42)
[2020-03-13] MEDS: Albuterol 8 GM Inhaler INH PRN ×2 (02:19→10:59)
[2020-03-13] MEDS: methylPREDNISolone Sodium Succinate 125 MG/2 ML SDV IVPUSH SCH (07:22)
[2020-03-13] MEDS: Omeprazole 20 MG Cap.CR PO SCH (07:23)
[2020-03-13] MEDS: Budesonide 0.5 MG/2 ML Neb Susp NEB SCH (07:26)
[2020-03-13] MEDS: Menthol 7.6 MG Sugar Free Lozenge PO PRN ×2 (07:49→11:00)
[2020-03-13] MEDS: predniSONE 5 MG Tab PO SCH (08:53)
[2020-03-13] MEDS: LORazepam 0.5 MG Tab PO SCH (08:53)
[2020-03-13] MEDS: ANASTRAZOLE 1 MG PO SCH (08:54)
[2020-03-13] MEDS: UMECLIDINIUM PO SCH (08:54)
[2020-03-13] MEDS: Sodium Chloride 0.9% 100 ML IV SCH (11:53)
[2020-03-13] MEDS: cefTRIAXone 1 GM Vial IVPUSH SCH (11:54)
[2020-03-13] MEDS ORDERED: Azithromycin 250 MG in Sodium Chloride 0.9% 250 ML IV SCH (12:00)
--- NOTE | 2020-03-14 00:50 | PN ---
PATIENT NAME: JERE MCKNIGHT HISTORY OF PRESENT ILLNESS: This is a 80-year-old female who was admitted through the emergency room on 03/09/2020. She was admitted with a COPD exacerbation. She reports today she does not feel as good as she had yesterday or the day before. She reports she does have a productive cough with green sputum. She reports actually feeling worse than she did when she came in last Thursday. She continues on Solu-Medrol 80 mg b.i.d. This was reduced from t.i.d. to b.i.d. yesterday. PERTINENT LABS: WBC 12,000. Hemoglobin is 9.2. Comprehensive metabolic panel shows a BUN and creatinine of 32 and 1.37 respectively. This is slightly higher than it was on her admission. She does report that she is drinking plenty of fluids. Her calcium is 8.4. The patient states her appetite is quite good. She is voiding and having regular bowel movements. PHYSICAL EXAMINATION: VITAL SIGNS: Temp is 97.4, pulse 92, respirations 22, blood pressure 143/72, O2 sat is 93% on 3 L of oxygen. SKIN: Pale, warm, dry to touch. CARDIAC: Reveals S1, S2 to be normal. Regular and rhythm are regular. No murmur, click, or gallop is auscultated. LUNGS: Have inspiratory and expiratory wheezes in all pierre today, which is worse than yesterday. ABDOMEN: Soft, obese, nontender. Bowel sounds present in all four quadrants. There is no pedal edema. IMPRESSION: 1. Chronic obstructive pulmonary disease exacerbation. The patient is not feeling as well she has been and is now producing a greenish colored sputum. She had a repeat chest x-ray today, which showed left basilar pulmonary infiltrate. She was started on azithromycin 500 mg loading dose today with 250 mg to follow for four days. She is also treated with ceftriaxone 1 g IV daily. This was advised by Dr. Essence Chavez when I consulted with her regarding this patient. The patient is on Incruse which is a long-acting anticholinergic. She is also on Atrovent and albuterol. This was brought to my attention by the respiratory therapist. We did change her DuoNeb to just plain albuterol. The patient is agreeable via social service consultation to go swing bed tomorrow. She also had a physical therapy consultation today. It does qualify her for swing bed care. We will continue to follow closely. 2. History of breast cancer. She is on anastrozole. 3. Anxiety. She is taking lorazepam. 4. Gastroesophageal reflux disease, on PPI. 5. Hypercholesterolemia. She is taking atorvastatin. 6. Constipation. She is taking stool softener daily. /[id number]/MODL
--- NOTE | 2020-03-14 06:41 | DISCH ---
HOSPITAL COURSE: This is a 80-year-old female who was admitted to the hospital through the emergency room on 03/09/2020. She was found to have severe COPD exacerbation. She has been treated with IV steroids which were initially 3 times a day and now she is receiving Solu-Medrol 80 mg twice daily. She did develop a left basilar infiltrate and was started on azithromycin and ceftriaxone IV yesterday. She is using albuterol per nebulizer as well as budesonide. She did have a respiratory culture. Gram stain shows less than 10 squamous epithelial cells with moderate mixed oral girma. There were rare polymorphic neutrophils. The patient felt better on her 2nd and 3rd day of hospitalization; however, yesterday had somewhat of a setback. This was when her chest x-ray was repeated and she was found to have a left basilar infiltrate. She was more wheezy yesterday too. Today, she states she feels marginally better, definitely better than yesterday, but not as good as 2nd and 3rd hospital days. PAST MEDICAL HISTORY: Includes breast cancer. She is status post right mastectomy, she had radiation for the same. Gastroesophageal reflux disease, COPD, hypercholesterolemia, constipation, fluid retention, chronic kidney disease. MEDICATIONS: From home were continued with the exception of her Flovent due to the fact that we changed her to nebulized budesonide. LABORATORY DATA: Significant lab data from today, she does have a little bit of a white blood cell count elevation at 11,450 with a left shift of 84.6% neutrophils. This is trending downward. She was COVID tested on admission and was found to be negative. Comprehensive metabolic panel shows a carbon dioxide of 37.9. This has improved since her hospitalization as well. BUN and creatinine are stable at 30 and 1.28. She does have a history of chronic kidney disease. Glucose is elevated at 139, most likely due to the steroids. Calcium is 8.5 and bilirubin is low at 0.1. PHYSICAL EXAMINATION: VITAL SIGNS: Temperature is 97.1, pulse 77, respirations 24, blood pressure 159/71, oxygen saturation is 95% on 3 L of oxygen. SKIN: Warm, pale, and dry to touch. CARDIAC: Reveals S1, S2 to be normal. Rate and rhythm are regular. No murmur, click, or gallop is auscultated. LUNGS: Diffuse wheezing, both inspiratory and expiratory. ABDOMEN: There is no abdominal distention. Abdomen is soft, nontender. Bowel sounds present in all 4 quadrants. EXTREMITIES: There is no pedal edema. IMPRESSION: 1. Chronic obstructive pulmonary disease exacerbation. She is slowly improving, however, had a setback after developing a left basilar infiltrate. She will continue albuterol per nebulizer as well as budesonide. 2. Left basilar infiltrate. She is being treated with azithromycin as well as ceftriaxone. 3. Breast cancer status post right mastectomy, she is on anastrozole. 4. Anxiety, stable on lorazepam. 5. , stable on PPI therapy. 6. Hypercholesterolemia, stable on atorvastatin. 7. Fluid retention. She does take furosemide as needed. PLEASE USE THIS ACUTE CARE DISCHARGE SUMMARY FOR SWING BED HOSPITAL ADMISSION HISTORY AND PHYSICAL EXAMINATION. /[id number]/MODL
== END 2020-03-13 11:49 | disposition swing bed (61) | DRG 192 ==
LOC: KA.ED 11:14 → KA.MS 14:32
DX: J44.1 Chronic obstructive pulmonary disease with (acute) exacerbation (principal); Z20.828 Contact with and (suspected) exposure to other viral communicable diseases; R06.9 Unspecified abnormalities of breathing; N18.9 Chronic kidney disease, unspecified; I10 Essential (primary) hypertension; E78.00 Pure hypercholesterolemia, unspecified; K59.00 Constipation, unspecified; K21.9 Gastro-esophageal reflux disease without esophagitis; D71 Functional disorders of polymorphonuclear neutrophils; F41.9 Anxiety disorder, unspecified; Z92.3 Personal history of irradiation; Z90.10 Acquired absence of unspecified breast and nipple; I12.9 Hypertensive chronic kidney disease with stage 1 through stage 4 chronic kidney disease, or unspecified chronic kidney disease; Z99.81 Dependence on supplemental oxygen; E66.9 Obesity, unspecified; G43.909 Migraine, unspecified, not intractable, without status migrainosus; R32 Unspecified urinary incontinence; Z90.11 Acquired absence of right breast and nipple; Z98.49 Cataract extraction status, unspecified eye; Z79.52 Long term (current) use of systemic steroids; Z79.899 Other long term (current) drug therapy; Z90.89 Acquired absence of other organs; Z85.3 Personal history of malignant neoplasm of breast
CPT/HCPCS: 36415; 71045; 71046; 80048; 80053; 83605; 83880; 84484; 85025; 87070; 87205; 93005; 94640; 96374; 97162-GP; 99285-25; A9270-GY; J0456; J0696; J2930; J7050; J7512; J7613-GY; J7620-GY; U0002

== ENCOUNTER 2020-03-13 11:49 | Inpatient (IN) | payer MEDICARE, OTHER ==
[2020-03-13] MEDS ORDERED: Sodium Chloride 0.9% 100 ML IV SCH (11:56)
[2020-03-13] MEDS ORDERED: guaiFENesin/Dextromethorphan 100-10 MG/5 ML Soln 5 ML Cup PO PRN (11:59)
[2020-03-13] MEDS ORDERED: Furosemide 20 MG Tab PO PRN (11:59)
[2020-03-13] MEDS ORDERED: Non-Formulary Medication 1 Each (Albuterol 2 PUFF) INH PRN (11:59)
[2020-03-13] MEDS: cefTRIAXone 1 GM Vial IVPUSH SCH (13:59)
[2020-03-13] MEDS: Azithromycin 250 MG in Sodium Chloride 0.9% 250 ML IV SCH (13:59)
[2020-03-13] MEDS: Albuterol 0.083% 2.5 MG/3 ML Neb Soln NEB SCH ×3 (14:03→21:33)
[2020-03-13] MEDS: guaiFENesin/Dextromethorphan 100-10 MG/5 ML Soln 5 ML Cup PO PRN ×3 (14:03→23:01)
[2020-03-13] MEDS: Albuterol 8 GM Inhaler INH PRN (15:54)
[2020-03-13] MEDS: methylPREDNISolone Sodium Succinate 125 MG/2 ML SDV IVPUSH SCH (20:00)
[2020-03-13] MEDS: Budesonide 0.5 MG/2 ML Neb Susp NEB SCH (20:00)
[2020-03-13] MEDS: atorvaSTATin 10 MG Tab PO SCH (20:02)
[2020-03-13] MEDS: Acetaminophen 500 MG Tab PO SCH (20:03)
[2020-03-13] MEDS: Docusate Sodium 100 MG Cap PO SCH (20:04)
[2020-03-13] MEDS: Menthol 7.6 MG Sugar Free Lozenge PO PRN (20:15)
[2020-03-13] MEDS ORDERED: ATORVASTATIN CALCIUM 20 MG PO SCH (21:00)
[2020-03-13] MEDS ORDERED: Acetaminophen 500 MG Tab PO SCH (21:00)
[2020-03-13] MEDS ORDERED: DOCUSATE SODIUM 200 MG PO SCH (21:00)
[2020-03-14] MEDS: Albuterol 0.083% 2.5 MG/3 ML Neb Soln NEB SCH ×6 (00:45→21:31)
[2020-03-14] MEDS: Menthol 7.6 MG Sugar Free Lozenge PO PRN (00:49)
[2020-03-14] MEDS: guaiFENesin/Dextromethorphan 100-10 MG/5 ML Soln 5 ML Cup PO PRN (03:36)
[2020-03-14] MEDS: Albuterol 8 GM Inhaler INH PRN ×2 (03:38→19:17)
[2020-03-14] MEDS: Budesonide 0.5 MG/2 ML Neb Susp NEB SCH ×2 (07:21→20:42)
[2020-03-14] MEDS ORDERED: Omeprazole 20 MG Cap.CR PO SCH (07:30)
[2020-03-14] MEDS: LORazepam 0.5 MG Tab PO SCH (08:36)
[2020-03-14] MEDS: Omeprazole 20 MG Cap.CR PO SCH (08:37)
[2020-03-14] MEDS ORDERED: Non-Formulary Medication 1 Each (Losartan/Hydrochlorothiazide 1 TAB) PO SCH (09:00)
[2020-03-14] MEDS ORDERED: predniSONE 5 MG Tab PO SCH (09:00)
[2020-03-14] MEDS ORDERED: LORAZEPAM 2 MG PO SCH (09:00)
[2020-03-14] MEDS ORDERED: Patient's Own Medication 1 Each PO SCH ×2 (09:00)
[2020-03-14] MEDS: predniSONE 5 MG Tab PO SCH (09:22)
[2020-03-14] MEDS: methylPREDNISolone Sodium Succinate 125 MG/2 ML SDV IVPUSH SCH ×2 (09:54→20:49)
[2020-03-14] MEDS ORDERED: Magnesium Hydroxide 400 MG/5 ML Susp 30 ML Cup PO ONE (10:57)
--- NOTE | 2020-03-14 11:04 | PCM.SN.2 ---
- Free Text/Narrative Note: Briefly evaluated Janina today. O2 down to 3L (from 4L) and sats at 98% although she feels SOB and that her breathing "isn't good". She is coughing up green sputum. She is on azithromycin and rocephin for infiltrate seen on CXR performed yesterday. She continues on solumedrol 80 mg IV BID. Holding her oral maintenance prednisone. She is complaining of not having a bowel movement since 03/11. She's getting colace 200 mg PO qhs. She would like to try MOM so will give 30 mL PO today and can repeat tomorrow if necessary. Continue swingbed status.
[2020-03-14] MEDS: cefTRIAXone 1 GM Vial IVPUSH SCH (12:52)
[2020-03-14] MEDS: Azithromycin 250 MG in Sodium Chloride 0.9% 250 ML IV SCH (12:58)
[2020-03-14] MEDS: Acetaminophen 500 MG Tab PO SCH (20:49)
[2020-03-14] MEDS: Docusate Sodium 100 MG Cap PO SCH (20:50)
[2020-03-14] MEDS: atorvaSTATin 10 MG Tab PO SCH (20:50)
[2020-03-15] MEDS: Albuterol 0.083% 2.5 MG/3 ML Neb Soln NEB SCH ×6 (01:49→20:40)
[2020-03-15] MEDS: Budesonide 0.5 MG/2 ML Neb Susp NEB SCH ×2 (07:10→19:42)
[2020-03-15] MEDS: methylPREDNISolone Sodium Succinate 125 MG/2 ML SDV IVPUSH SCH ×2 (07:24→15:42)
[2020-03-15] MEDS: Omeprazole 20 MG Cap.CR PO SCH (07:24)
[2020-03-15] MEDS: LORazepam 0.5 MG Tab PO SCH (08:19)
[2020-03-15] MEDS: Furosemide 20 MG Tab PO PRN (08:26)
[2020-03-15] MEDS: cefTRIAXone 1 GM Vial IVPUSH SCH (12:05)
[2020-03-15] MEDS: Azithromycin 250 MG in Sodium Chloride 0.9% 250 ML IV SCH (12:10)
[2020-03-15] MEDS: Albuterol 8 GM Inhaler INH PRN ×2 (15:42→22:22)
[2020-03-15] MEDS: Psyllium Husk Powder Sugar Free 5.85 GM Packet PO SCH (20:40)
[2020-03-15] MEDS: Docusate Sodium 100 MG Cap PO SCH (20:41)
[2020-03-15] MEDS: Acetaminophen 500 MG Tab PO SCH (20:41)
[2020-03-15] MEDS: atorvaSTATin 10 MG Tab PO SCH (20:42)
[2020-03-15] MEDS: guaiFENesin/Dextromethorphan 100-10 MG/5 ML Soln 5 ML Cup PO PRN (20:42)
[2020-03-16] MEDS: methylPREDNISolone Sodium Succinate 125 MG/2 ML SDV IVPUSH SCH ×3 (00:30→15:54)
[2020-03-16] MEDS: Albuterol 0.083% 2.5 MG/3 ML Neb Soln NEB SCH ×6 (00:30→20:57)
[2020-03-16] MEDS: Omeprazole 20 MG Cap.CR PO SCH ×2 (06:21→06:39)
[2020-03-16] MEDS: Budesonide 0.5 MG/2 ML Neb Susp NEB SCH ×2 (07:30→19:52)
[2020-03-16] MEDS: Psyllium Husk Powder Sugar Free 5.85 GM Packet PO SCH ×2 (08:17→20:56)
[2020-03-16] MEDS: LORazepam 0.5 MG Tab PO SCH (08:18)
[2020-03-16] MEDS: Furosemide 20 MG Tab PO PRN (08:27)
[2020-03-16] MEDS: Albuterol 8 GM Inhaler INH PRN ×3 (11:06→22:08)
[2020-03-16] MEDS: guaiFENesin/Dextromethorphan 100-10 MG/5 ML Soln 5 ML Cup PO PRN ×2 (11:26→20:15)
[2020-03-16] MEDS: cefTRIAXone 1 GM Vial IVPUSH SCH (11:31)
[2020-03-16] MEDS: Azithromycin 250 MG in Sodium Chloride 0.9% 250 ML IV SCH (11:42)
[2020-03-16] MEDS: Acetaminophen 500 MG Tab PO SCH (20:56)
[2020-03-16] MEDS: Docusate Sodium 100 MG Cap PO SCH (20:56)
[2020-03-16] MEDS: atorvaSTATin 10 MG Tab PO SCH (20:56)
[2020-03-16] MEDS: Menthol 7.6 MG Sugar Free Lozenge PO PRN (20:59)
[2020-03-17] MEDS: methylPREDNISolone Sodium Succinate 125 MG/2 ML SDV IVPUSH SCH ×3 (00:08→16:19)
[2020-03-17] MEDS: Albuterol 0.083% 2.5 MG/3 ML Neb Soln NEB SCH ×6 (00:08→20:44)
[2020-03-17] MEDS: Albuterol 8 GM Inhaler INH PRN ×4 (02:19→22:48)
[2020-03-17] MEDS: Omeprazole 20 MG Cap.CR PO SCH ×2 (05:54→06:31)
[2020-03-17] MEDS: Budesonide 0.5 MG/2 ML Neb Susp NEB SCH ×2 (07:30→19:20)
[2020-03-17 07:54] LABS: ANION GAP 12.3 mmol/L (5-15)
[2020-03-17] MEDS: LORazepam 0.5 MG Tab PO SCH (08:17)
[2020-03-17] MEDS: Psyllium Husk Powder Sugar Free 5.85 GM Packet PO SCH ×2 (08:18→20:44)
[2020-03-17] MEDS: Furosemide 20 MG Tab PO PRN (08:35)
[2020-03-17] MEDS: guaiFENesin/Dextromethorphan 100-10 MG/5 ML Soln 5 ML Cup PO PRN ×2 (10:53→20:45)
[2020-03-17] MEDS: cefTRIAXone 1 GM Vial IVPUSH SCH (12:36)
[2020-03-17] MEDS: Docusate Sodium 100 MG Cap PO SCH (20:45)
[2020-03-17] MEDS: atorvaSTATin 10 MG Tab PO SCH (20:45)
[2020-03-17] MEDS: Acetaminophen 500 MG Tab PO SCH (20:45)
[2020-03-17] MEDS: Menthol 7.6 MG Sugar Free Lozenge PO PRN (20:45)
[2020-03-18] MEDS: Albuterol 0.083% 2.5 MG/3 ML Neb Soln NEB SCH ×6 (00:38→21:03)
[2020-03-18] MEDS: methylPREDNISolone Sodium Succinate 125 MG/2 ML SDV IVPUSH SCH ×3 (00:39→15:59)
[2020-03-18] MEDS: Albuterol 8 GM Inhaler INH PRN ×4 (00:53→19:11)
[2020-03-18] MEDS: Menthol 7.6 MG Sugar Free Lozenge PO PRN ×2 (00:55→19:11)
[2020-03-18] MEDS: guaiFENesin/Dextromethorphan 100-10 MG/5 ML Soln 5 ML Cup PO PRN ×2 (00:55→19:11)
[2020-03-18] MEDS ORDERED: Magnesium Hydroxide 400 MG/5 ML Susp 30 ML Cup PO PRN (06:02)
[2020-03-18] MEDS: Omeprazole 20 MG Cap.CR PO SCH ×2 (06:21→06:32)
[2020-03-18] MEDS: Budesonide 0.5 MG/2 ML Neb Susp NEB SCH ×2 (08:06→20:02)
[2020-03-18] MEDS: Furosemide 20 MG Tab PO PRN (08:10)
[2020-03-18] MEDS: LORazepam 0.5 MG Tab PO SCH (08:10)
[2020-03-18] MEDS: Psyllium Husk Powder Sugar Free 5.85 GM Packet PO SCH ×2 (08:11→21:03)
[2020-03-18] MEDS: cefTRIAXone 1 GM Vial IVPUSH SCH (12:19)
[2020-03-18] MEDS ORDERED: Furosemide 40 MG/4 ML VIAL IVPUSH ONE (19:02)
[2020-03-18] MEDS: Acetaminophen 500 MG Tab PO SCH (21:03)
[2020-03-18] MEDS: Docusate Sodium 100 MG Cap PO SCH (21:03)
[2020-03-18] MEDS: atorvaSTATin 10 MG Tab PO SCH (21:03)
[2020-03-19] MEDS: methylPREDNISolone Sodium Succinate 125 MG/2 ML SDV IVPUSH SCH ×3 (00:18→16:40)
[2020-03-19] MEDS: Albuterol 0.083% 2.5 MG/3 ML Neb Soln NEB SCH ×7 (00:18→21:31)
[2020-03-19] MEDS: Omeprazole 20 MG Cap.CR PO SCH ×2 (06:12→08:45)
[2020-03-19] MEDS: Budesonide 0.5 MG/2 ML Neb Susp NEB SCH ×2 (07:08→19:08)
[2020-03-19] MEDS: Psyllium Husk Powder Sugar Free 5.85 GM Packet PO SCH ×2 (08:35→20:14)
[2020-03-19] MEDS: LORazepam 0.5 MG Tab PO SCH (08:35)
[2020-03-19] MEDS: Furosemide 40 MG/4 ML VIAL IVPUSH SCH ×3 (09:31→20:01)
--- NOTE | 2020-03-19 15:13 | PN ---
03/19/2020 PATIENT NAME: JERE MCKNIGHT HISTORY OF PRESENT ILLNESS: This is a 80-year-old female who is being seen today on swing bed rounds. She was hospitalized in acute care from March 09 through March 13 for a COPD exacerbation. While in the hospital, she did develop a left basilar infiltrate and was started on azithromycin as well as ceftriaxone. She was treated with IV steroids which were decreased. However, she did not do well on the b.i.d. dosing. She is still on Solu-Medrol 80 mg t.i.d. She does report today that she is feeling quite a bit better although she still is audibly wheezing. Yesterday, it was brought to the attention of Dr. Chavez that she had gained 9 pounds since admission. She was given a one time dose of furosemide 40 mg IV x1 in addition to her 20 mg orally. She did diurese 2.5 pounds. She is on oxygen at 3 L. She is working with physical therapy for deconditioning. Respiratory culture showed less than 10 squamous epithelial cells with moderate mixed oral girma. There were rare polymorphic neutrophils. Lab work was performed on March 17, 2020. White blood cell count was elevated at 14.65 with a left shift of 90% neutrophils. It is unclear whether the white blood cell count elevation is secondary to her basilar infiltrate or IV steroids. It possibly is a combination of both. Sodium and potassium are normal at 139 and 5.1. Her BUN was 34 and creatinine was 1.13. It is noted that her creatinine has been elevated the entire hospitalization, but now is normal. GFR is 46. Calcium is low at 8.3. Total protein is 6.2. PHYSICAL EXAMINATION: VITAL SIGNS: Temp is 98.5, pulse 86, respirations 24, blood pressure 169/62, O2 saturation is 97% on 3 L of oxygen. Her weight on admission was 219 pounds. It was 228.5 yesterday and now today 225. SKIN: Pale, warm, dry to touch. CARDIAC: Reveals S1, S2 to be normal. Rate and rhythm are regular. No murmur, click, or gallop is auscultated. LUNGS: Have audible wheezing throughout, however, it is mild. The wheezing is present diffusely. ABDOMEN: Soft, nontender. Bowel sounds present in all four quadrants. There is no pedal edema. IMPRESSION: 1. Chronic obstructive pulmonary disease exacerbation. This appears to be improving. We will continue IV steroids and complete her courses of antibiotics. She will continue albuterol treatments per nebulizer as well as budesonide. 2. Left basilar infiltrate. She is being treated with azithromycin as well as ceftriaxone. 3. Weight gain. This has responded well to IV Lasix. We will give her 40 mg of IV Lasix b.i.d. today and hold her oral dose of the furosemide 20 mg. 4. Breast cancer, status post right mastectomy. She is on anastrozole. 5. Anxiety, stable on lorazepam. 6. Gastroesophageal reflux disease, stable on proton pump inhibitor therapy. 7. Hypercholesterolemia, stable on atorvastatin. 8. Fluid retention. Please see #3. We will continue to follow. Dr. Essence Zhou has been updated on the patient's progress or lack thereof during her acute stay as well as her swing bed stay. /[id number]/MODL
[2020-03-19] MEDS: atorvaSTATin 10 MG Tab PO SCH (20:16)
[2020-03-19] MEDS: Docusate Sodium 100 MG Cap PO SCH (20:16)
[2020-03-19] MEDS: Acetaminophen 500 MG Tab PO SCH (20:16)
[2020-03-20] MEDS: methylPREDNISolone Sodium Succinate 125 MG/2 ML SDV IVPUSH SCH ×3 (01:05→20:36)
[2020-03-20] MEDS: Albuterol 0.083% 2.5 MG/3 ML Neb Soln NEB SCH ×6 (01:06→21:28)
[2020-03-20] MEDS: Budesonide 0.5 MG/2 ML Neb Susp NEB SCH ×2 (07:18→20:27)
[2020-03-20] MEDS: Omeprazole 20 MG Cap.CR PO SCH (07:33)
[2020-03-20] MEDS: Psyllium Husk Powder Sugar Free 5.85 GM Packet PO SCH ×2 (08:04→20:36)
[2020-03-20] MEDS: LORazepam 0.5 MG Tab PO SCH (08:05)
[2020-03-20] MEDS: Furosemide 20 MG Tab PO PRN (08:05)
[2020-03-20 09:43] LABS: ANION GAP 8.5 mmol/L (5-15)
[2020-03-20] MEDS: Albuterol 8 GM Inhaler INH PRN (11:30)
[2020-03-20] MEDS: Docusate Sodium 100 MG Cap PO SCH (20:35)
[2020-03-20] MEDS: Acetaminophen 500 MG Tab PO SCH (20:35)
[2020-03-20] MEDS: atorvaSTATin 10 MG Tab PO SCH (20:35)
[2020-03-20] MEDS: guaiFENesin/Dextromethorphan 100-10 MG/5 ML Soln 5 ML Cup PO PRN (21:02)
[2020-03-21] MEDS: Albuterol 0.083% 2.5 MG/3 ML Neb Soln NEB SCH ×6 (01:51→21:18)
[2020-03-21] MEDS: Budesonide 0.5 MG/2 ML Neb Susp NEB SCH ×2 (07:26→19:48)
[2020-03-21] MEDS: Omeprazole 20 MG Cap.CR PO SCH (07:38)
[2020-03-21] MEDS: LORazepam 0.5 MG Tab PO SCH (08:37)
[2020-03-21] MEDS: Furosemide 20 MG Tab PO SCH (08:37)
[2020-03-21] MEDS: Psyllium Husk Powder Sugar Free 5.85 GM Packet PO SCH ×2 (08:37→21:18)
[2020-03-21] MEDS: methylPREDNISolone Sodium Succinate 125 MG/2 ML SDV IVPUSH SCH (08:44)
[2020-03-21] MEDS: atorvaSTATin 10 MG Tab PO SCH (21:16)
[2020-03-21] MEDS: Docusate Sodium 100 MG Cap PO SCH (21:17)
[2020-03-21] MEDS: Acetaminophen 500 MG Tab PO SCH (21:17)
[2020-03-22] MEDS: Albuterol 0.083% 2.5 MG/3 ML Neb Soln NEB SCH ×6 (00:20→22:00)
[2020-03-22] MEDS: Omeprazole 20 MG Cap.CR PO SCH (06:36)
[2020-03-22] MEDS: Budesonide 0.5 MG/2 ML Neb Susp NEB SCH ×2 (07:07→21:11)
[2020-03-22] MEDS: LORazepam 0.5 MG Tab PO SCH (08:54)
[2020-03-22] MEDS: Psyllium Husk Powder Sugar Free 5.85 GM Packet PO SCH ×2 (08:55→21:17)
[2020-03-22] MEDS: Furosemide 20 MG Tab PO SCH (08:55)
[2020-03-22] MEDS: predniSONE 5 MG Tab PO SCH (08:58)
[2020-03-22] MEDS: Albuterol 8 GM Inhaler INH PRN (15:58)
[2020-03-22] MEDS: Docusate Sodium 100 MG Cap PO SCH (21:16)
[2020-03-22] MEDS: Acetaminophen 500 MG Tab PO SCH (21:16)
[2020-03-22] MEDS: atorvaSTATin 10 MG Tab PO SCH (21:17)
[2020-03-23] MEDS: Albuterol 0.083% 2.5 MG/3 ML Neb Soln NEB SCH ×3 (01:09→08:15)
[2020-03-23 06:09] VITALS: BP 149/60
[2020-03-23] MEDS: Budesonide 0.5 MG/2 ML Neb Susp NEB SCH (07:14)
[2020-03-23] MEDS: Omeprazole 20 MG Cap.CR PO SCH (07:14)
[2020-03-23] MEDS: Furosemide 20 MG Tab PO SCH (08:14)
[2020-03-23] MEDS: predniSONE 5 MG Tab PO SCH (08:14)
[2020-03-23] MEDS: Psyllium Husk Powder Sugar Free 5.85 GM Packet PO SCH (08:14)
[2020-03-23] MEDS: LORazepam 0.5 MG Tab PO SCH (08:14)
[2020-03-23 08:28] VITALS: PULSE 78
== END 2020-03-23 09:57 | disposition home or self-care (01) | DRG 191 ==
LOC: KA.MS 11:49
DX: J44.1 Chronic obstructive pulmonary disease with (acute) exacerbation (principal); Z68.41 Body mass index [BMI] 40.0-44.9, adult; F41.9 Anxiety disorder, unspecified; K21.9 Gastro-esophageal reflux disease without esophagitis; E78.00 Pure hypercholesterolemia, unspecified; R60.9 Edema, unspecified; K59.00 Constipation, unspecified; N18.9 Chronic kidney disease, unspecified; R63.5 Abnormal weight gain; Z85.3 Personal history of malignant neoplasm of breast; Z79.899 Other long term (current) drug therapy
CPT/HCPCS: 36415; 80053; 85025; 94640; 97110-GP; 97162-GP; 97530-GP; A9270-GY; J0456; J0696; J1940; J2930; J7050; J7512; J7613-GY

== ENCOUNTER 2020-03-24 13:09 | Emergency (ER) | payer MEDICARE, OTHER ==
[2020-03-24] MEDS ORDERED: Sodium Chloride 0.9% 10 ML Syringe FLUSH PRN ×2 (13:22→15:41)
--- NOTE | 2020-03-24 13:22 | EDM.PDOC ---
ED HPI GENERAL MEDICAL PROBLEM - General Chief Complaint: Cardiovascular Problem Stated Complaint: SHORTNESS OF BREATH Time Seen by Provider: 03/24/20 13:10 Source of Information: Reports: Patient History Limitations: Reports: No Limitations - History of Present Illness INITIAL COMMENTS - FREE TEXT/NARRATIVE: 80 YO WF WITH SEVERE COPD WHO WAS DISCHARGED FROM SWING BED YESTERDAY PRESENTS TO ER WITH COMPLAINTS OF WORSENING SHORTNESS OF BREATH SINCE DISCHARGE YESTERDAY. PT TYPICALLY USES HOME O2 AT 4L BUT DAUGHTER STATES SHE WAS RESTLESS LAST NIGHT AND SHE INCREASED HER O2 TO 6L. PT WHILE IN SWING BED HAD A 10LB WEIGHT GAIN AND WAS GIVEN LASIX WHICH IMPROVED HER CONDITION. PT DENIES CHEST PAIN, DIAPHORESIS, NAUSEA/VOMITING, NO FEVER/CHILLS. PT WAS SCHEDULED TO GO TO [place] BUT FAMILY WAS UNHAPPY WITH PLACEMENT AND TOOK HER HOME YESTERDAY. PT AND FAMILY WOULD LIKE TO GO TO [facility] UPON DISCHARGE. Onset: Today Duration: Chronic, Getting Worse Location: Reports: Generalized Severity: Moderate Improves with: Reports: Rest Worsens with: Reports: Movement Associated Symptoms: Reports: Malaise, Shortness of Breath. Denies: Chest Pain, Cough, cough w sputum, Diaphoresis, Fever/Chills, Nausea/Vomiting, Rash - Related Data Allergies Allergy/AdvReac Type Severity Reaction Status Date / Time No Known Drug Allergies Allergy NKDA Verified 03/24/20 13:23 Home Meds: Home Meds Anastrozole [Arimidex] 1 mg PO DAILY 07/06/17 [History] LORazepam 2 mg PO DAILY 07/06/17 [History] Omeprazole 20 mg PO ACBREAKFAST 07/06/17 [History] Umeclidinium [place] [Incruse Ellipta*] 1 puff IH DAILY 07/06/17 [History] atorvaSTATin Calcium [Atorvastatin Calcium] 20 mg PO BEDTIME 07/06/17 [History] Acetaminophen [Tylenol Extra Strength] 1,000 mg PO BEDTIME 11/28/19 [History] Albuterol [Proair HFA] 2 puff INH Q4H PRN 11/28/19 [History] Docusate Sodium 200 mg PO BEDTIME 11/28/19 [History] Furosemide 20 mg PO DAILY PRN 11/28/19 [History] predniSONE [Prednisone] 5 mg PO DAILY 11/28/19 [History] Dextromethorphan/guaiFENesin [Robitussin DM] 10 ml PO Q4H PRN cup 11/29/19 [Rx] Albuterol [Proventil Neb Soln] 2.5 mg NEB Q4HRRT neb 03/23/20 [Rx] Budesonide [Pulmicort] 0.5 mg IH BID #120 ml 03/23/20 [Rx] Magnesium Hydroxide [Milk of Magnesia] 30 ml PO DAILY PRN cup 03/23/20 [Rx] Menthol [[place] Sugar Free] 1 shekhar PO ASDIRECTED PRN shekhar 03/23/20 [Rx] Psyllium Husk/Aspartame [Metamucil Sugar Free] 1 pkt PO BID packet 03/23/20 [Rx] Past Medical History HEENT History: Reports: Cataract Cardiovascular History: Reports: High Cholesterol, Hypertension Respiratory History: Reports: COPD, Other (See Below) Other Respiratory History: home o2 use Gastrointestinal History: Reports: GERD Genitourinary History: Reports: Urinary Incontinence, Other (See Below) Other Genitourinary History: with coughing CHEF HEAD History: Reports: Neurological History: Reports: Migraines, Other (See Below) Other Neuro History: in the distant past Psychiatric History: Reports: Anxiety Endocrine/Metabolic History: Reports: Obesity/BMI 30+ Oncologic (Cancer) History: Reports: Breast Other Oncologic History: radiation only and mastectomy - Infectious Disease History Infectious Disease History: Reports: Chicken Pox, Measles, Mumps - Past Surgical History HEENT Surgical History: Reports: Cataract Surgery, Tonsillectomy Cardiovascular Surgical History: Reports: None Respiratory Surgical History: Reports: None GI Surgical History: Reports: None Female Surgical History: Reports: Breast Biopsy, Mastectomy Other Female Surgeries/Procedures: mastectomy Endocrine Surgical History: Reports: None Oncologic Surgical History: Reports: Mastectomy Social & Family History - Family History Family Medical History: Noncontributory - Caffeine Use Caffeine Use: Reports: Tea Other Caffeine Use: diet ED ROS GENERAL - Review of Systems Review Of Systems: See Below Constitutional: Reports: No Symptoms HEENT: Reports: No Symptoms Respiratory: Reports: Shortness of Breath Cardiovascular: Reports: Dyspnea on Exertion, Lightheadedness, Orthopnea, PND. Denies: Chest Pain Endocrine: Reports: No Symptoms GI/Abdominal: Reports: No Symptoms : Reports: No Symptoms Musculoskeletal: Reports: No Symptoms Skin: Reports: No Symptoms Neurological: Reports: No Symptoms Psychiatric: Reports: No Symptoms Hematologic/Lymphatic: Reports: No Symptoms Immunologic: Reports: No Symptoms ED EXAM, GENERAL - Physical Exam Exam: See Below Exam Limited By: No Limitations General Appearance: Alert, WD/WN, No Apparent Distress Head: Atraumatic, Normocephalic Neck: Normal Inspection, Supple, Non-Tender, Full Range of Motion Respiratory/Chest: No Respiratory Distress, Decreased Breath Sounds Cardiovascular: Normal Peripheral Pulses, Regular Rate, Rhythm, No Edema, No Gallop, No JVD, No Murmur, No Rub GI/Abdominal: Normal Bowel Sounds, Soft, Non-Tender, No Organomegaly, No Distention, No Abnormal Bruit, No Mass Back Exam: Normal Inspection, Full Range of Motion, NT Extremities: Normal Range of Motion, Normal Capillary Refill, Pedal Edema. No: No Pedal Edema Neurological: Alert, Oriented, CN II-XII Intact, Normal Cognition, Normal Gait, Normal Reflexes, No Motor/Sensory Deficits Psychiatric: Normal Affect, Normal Mood Skin Exam: Warm, Dry, Intact, Normal Color, No Rash EKG INTERPRETATION EKG Date: 03/24/20 Time: 13:45 Rhythm: NSR Rate (Beats/Min): 83 [place]: Normal P-Wave: Present QRS: Normal ST-T: Normal QT: Normal Comparison: No Change Course - Orders/Labs/Meds Orders: Active Orders 24 hr Category Date Time Status EKG Documentation Completion [RC] ASDIRECTED Care 03/24/20 13:23 Active Peripheral IV Care [RC] . DIRECTED Care 03/24/20 13:23 Active B-TYPE NATRIURETIC PEPTIDE,BNP [CHEM] Stat Lab 03/24/20 14:15 Results CK W CKMB [CHEM] Stat Lab 03/24/20 14:15 Results COMPREHENSIVE METABOLIC PN,CMP [CHEM] Stat Lab 03/24/20 14:15 Results CORONAVIRUS COVID-19 RAPID [MOLEC] Stat Lab 03/24/20 14:26 Ordered TROPONIN I [CHEM] Stat Lab 03/24/20 14:15 Results Sodium Chloride 0.9% [Saline Flush] Med 03/24/20 13:22 Active 10 ml FLUSH Q8HR PRN Peripheral IV Insertion Adult [OM.PC] Routine Oth 03/24/20 13:22 Ordered EKG 12 Lead [EK] Stat Ther 03/24/20 13:22 Ordered Medication Orders Sodium Chloride (Saline Flush) 10 ml FLUSH Q8HR PRN PRN Reason: keep vein open Labs: Laboratory Tests 03/24/20 03/24/20 03/24/20 Range/Units 14:15 14:15 14:15 WBC 11.67 H (5.00-10.00) 10^3/uL RBC 3.09 L (3.80-5.50) 10^6/uL Hgb 9.6 L (12.0-16.0) g/dL Hct 31.9 L (37.0-47.0) % MCV 103.2 H (82.0-92.0) fL MCH 31.1 H (27.0-31.0) pg MCHC 30.1 L (32.0-36.0) g/dL RDW 12.8 (11.5-14.5) % Plt Count 139 L D (150-400) 10^3/uL MPV 9.5 (7.4-10.4) fL Immature Gran % (Auto) 0.4 (0.0-5.0) % Neut % (Auto) 82.1 H (50.0-70.0) % Lymph % (Auto) 6.7 L (20.0-40.0) % [place] % (Auto) 8.7 H (2.0-8.0) % Eos % (Auto) 2.1 (1.0-3.0) % Baso % (Auto) 0.0 (0.0-1.0) % Neut # (Auto) 9.57 H (2.50-7.00) 10^3/uL Lymph # (Auto) 0.78 L (1.00-4.00) 10^3/uL [place] # (Auto) 1.02 H (0.10-0.80) 10^3/uL Eos # (Auto) 0.25 (0.10-0.30) 10^3/uL Baso # (Auto) 0.00 (0.00-0.10) 10^3/uL Immature Gran # (Auto) 0.05 (0.00-0.50) 10^3/uL PT 10.0 (9.2-11.2) SEC INR 1.0 (0.9-1.1) APTT 23.7 (22.8-31.4) SEC B-Natriuretic Peptide 50 (0-100) pg/mL Meds: Medications Generic Name Dose Route Start Last Admin Trade Name Freq PRN Reason Stop Dose Admin Sodium Chloride 10 ml 03/24/20 13:22 Saline Flush FLUSH Q8HR PRN keep vein open Discontinued Medications Generic Name Dose Route Start Last Admin Trade Name Freq PRN Reason Stop Dose Admin Furosemide 40 mg 03/24/20 13:56 Lasix IVPUSH 03/24/20 13:57 NOW ONE Departure - Departure Time of Disposition: 15:38 Disposition: DC/Tfer W/I Hosp To Swing Condition: Good Clinical Impression: COPD exacerbation, Fluid retention, Elevated troponin I level - Discharge Information Referrals: Samantha Hancock PA-C [Primary Care Provider] - Forms: ED Department Discharge - My Orders Last 24 Hours: My Active Orders 03/24/20 13:22 Sodium Chloride 0.9% [Saline Flush] 10 ml FLUSH Q8HR PRN Peripheral IV Insertion Adult [OM.PC] Routine EKG 12 Lead [EK] Stat 03/24/20 13:23 EKG Documentation Completion [RC] ASDIRECTED Peripheral IV Care [RC] . DIRECTED 03/24/20 14:15 B-TYPE NATRIURETIC PEPTIDE,BNP [CHEM] Stat CK W CKMB [CHEM] Stat COMPREHENSIVE METABOLIC PN,CMP [CHEM] Stat TROPONIN I [CHEM] Stat 03/24/20 14:26 CORONAVIRUS COVID-19 RAPID [MOLEC] Stat - Assessment/Plan Last 24 Hours: My Active Orders 03/24/20 13:22 Sodium Chloride 0.9% [Saline Flush] 10 ml FLUSH Q8HR PRN Peripheral IV Insertion Adult [OM.PC] Routine EKG 12 Lead [EK] Stat 03/24/20 13:23 EKG Documentation Completion [RC] ASDIRECTED Peripheral IV Care [RC] . DIRECTED 03/24/20 14:15 B-TYPE NATRIURETIC PEPTIDE,BNP [CHEM] Stat CK W CKMB [CHEM] Stat COMPREHENSIVE METABOLIC PN,CMP [CHEM] Stat TROPONIN I [CHEM] Stat 03/24/20 14:26 CORONAVIRUS COVID-19 RAPID [MOLEC] Stat Assessment:: 1. COPD EXACERBATION 2. ELEVATED TROP I 3. FLUID RETENTION WITHOUT EVIDENCE CONGESTIVE HEART FAILURE Plan: 1. ADMIT TO SWING BED- DR BOND 2. TROP I Q4 X 4 3. LASIX 40MG IV QD 4. O2 AT 4L 5. CONTINUE HOME MEDS PER DR BOND 6. SUPPORTIVE CARE 7. DNR/DNI
[2020-03-24] MEDS ORDERED: Furosemide 40 MG/4 ML VIAL IVPUSH ONE (13:56)
--- NOTE | 2020-03-24 14:09 | CR ---
[id number] RAD/RAD Chest PA or AP 1V EXAM: FRONTAL CHEST INDICATION: SHORTNESS OF BREATH. COMPARISON: March 12, 2020. DISCUSSION: Chronic left midlung and bibasilar scarring. No acute infiltrates are identified. Borderline heart size without evidence of congestive heart failure. Chronic obstructive pulmonary disease. Surgical clips right axilla. Right mastectomy. IMPRESSION: 1. No acute findings. Puneet Lama MD 03/24/20 [id number] Thank you for allowing us to participate in the care of your patient.
[2020-03-24 14:53] LABS: ANION GAP 4.2 mmol/L (5-15); CHLORIDE,CL 100 mmol/L (98-115); PTT,PARTIAL THROMBOPLSTIN TIME 23.7 SEC (22.8-31.4); SODIUM,NA 142 mmol/L (136-145)
[2020-03-25] MEDS ORDERED: Furosemide 40 MG/4 ML VIAL IVPUSH SCH (09:00)
== END 2020-03-24 15:41 | disposition swing bed (61) ==
LOC: KA.ED 13:09
DX: J44.1 Chronic obstructive pulmonary disease with (acute) exacerbation (principal); R60.9 Edema, unspecified; R79.89 Other specified abnormal findings of blood chemistry; K21.9 Gastro-esophageal reflux disease without esophagitis; I10 Essential (primary) hypertension; E78.00 Pure hypercholesterolemia, unspecified; E66.9 Obesity, unspecified; F41.9 Anxiety disorder, unspecified; Z68.41 Body mass index [BMI] 40.0-44.9, adult; Z79.899 Other long term (current) drug therapy
CPT/HCPCS: 36415; 71045; 80053; 82550; 82553; 83880; 84484; 85025; 85610; 85730; 93005; 96374; 99284; 99285-25; J1940; U0002

== ENCOUNTER 2020-03-24 15:41 | Inpatient (IN) | payer MEDICARE, OTHER ==
[2020-03-24] MEDS ORDERED: Sodium Chloride 0.9% 10 ML Syringe FLUSH PRN (18:07)
[2020-03-24] MEDS ORDERED: Non-Formulary Medication 1 Each (Albuterol 2 PUFF) INH PRN (19:39)
[2020-03-24] MEDS ORDERED: Menthol 7.6 MG Sugar Free Lozenge PO PRN (19:39)
[2020-03-24] MEDS ORDERED: Magnesium Hydroxide 400 MG/5 ML Susp 30 ML Cup PO PRN (19:39)
[2020-03-24] MEDS ORDERED: guaiFENesin/Dextromethorphan 100-10 MG/5 ML Soln 5 ML Cup PO PRN (19:39)
[2020-03-24] MEDS ORDERED: Albuterol 8 GM Inhaler INH PRN (19:58)
[2020-03-24] MEDS: Budesonide 0.5 MG/2 ML Neb Susp INH SCH (20:29)
[2020-03-24] MEDS ORDERED: BUDESONIDE 0.5 MG IH SCH (21:00)
[2020-03-24] MEDS: Docusate Sodium 100 MG Cap PO SCH (21:30)
[2020-03-24] MEDS: atorvaSTATin 10 MG Tab PO SCH (21:30)
[2020-03-24] MEDS: Acetaminophen 500 MG Tab PO SCH (21:30)
[2020-03-24] MEDS: Psyllium Husk Powder Sugar Free 5.85 GM Packet PO SCH (21:30)
[2020-03-24] MEDS: Albuterol 0.083% 2.5 MG/3 ML Neb Soln NEB SCH (21:31)
[2020-03-25] MEDS: Albuterol 0.083% 2.5 MG/3 ML Neb Soln NEB SCH ×6 (01:49→21:37)
[2020-03-25] MEDS: Omeprazole 20 MG Cap.CR PO SCH (07:41)
[2020-03-25] MEDS: Budesonide 0.5 MG/2 ML Neb Susp INH SCH ×2 (07:42→20:18)
[2020-03-25] MEDS ORDERED: EPINEPHrine 1:10,000 1 MG/10 ML Syringe IVPUSH PRN (07:43)
[2020-03-25] MEDS ORDERED: Lidocaine 2% 100 MG/5 ML Syringe IVPUSH PRN (07:43)
[2020-03-25] MEDS ORDERED: Nitroglycerin 0.4 MG Tab.SL SL PRN (07:43)
[2020-03-25] MEDS ORDERED: Atropine 0.1 MG/ML 10 ML Syringe IVPUSH PRN (07:43)
[2020-03-25 08:02] LABS: CHLORIDE,CL 98 mmol/L (98-115); SODIUM,NA 143 mmol/L (136-145)
[2020-03-25] MEDS: Furosemide 40 MG/4 ML VIAL IVPUSH SCH (08:18)
[2020-03-25] MEDS: LORazepam 0.5 MG Tab PO SCH (08:21)
[2020-03-25] MEDS: predniSONE 5 MG Tab PO SCH (08:22)
[2020-03-25] MEDS: Psyllium Husk Powder Sugar Free 5.85 GM Packet PO SCH ×2 (08:22→21:28)
[2020-03-25] MEDS: Glycopyrrolate 15.6 MCG Cap.W.Dev Kit of 6 IH SCH ×2 (08:34→21:37)
[2020-03-25] MEDS ORDERED: Non-Formulary Medication 1 Each (Umeclidinium Bromide [Incruse Ellipta*] 1 PUFF) IH SCH (09:00)
[2020-03-25] MEDS: ANASTROZOLE 1 MG PO SCH (12:22)
[2020-03-25] MEDS: Acetaminophen 500 MG Tab PO SCH (21:27)
[2020-03-25] MEDS: Docusate Sodium 100 MG Cap PO SCH (21:27)
[2020-03-25] MEDS: atorvaSTATin 10 MG Tab PO SCH (21:28)
[2020-03-26] MEDS: Albuterol 0.083% 2.5 MG/3 ML Neb Soln NEB SCH ×6 (01:47→20:58)
[2020-03-26] MEDS: Budesonide 0.5 MG/2 ML Neb Susp INH SCH ×2 (07:13→19:47)
[2020-03-26] MEDS: Omeprazole 20 MG Cap.CR PO SCH (07:33)
[2020-03-26] MEDS: Furosemide 40 MG/4 ML VIAL IVPUSH SCH (08:08)
[2020-03-26] MEDS: ANASTROZOLE 1 MG PO SCH (08:08)
[2020-03-26] MEDS: predniSONE 5 MG Tab PO SCH (08:10)
[2020-03-26] MEDS: LORazepam 0.5 MG Tab PO SCH (08:10)
[2020-03-26] MEDS: Psyllium Husk Powder Sugar Free 5.85 GM Packet PO SCH ×2 (08:11→21:03)
--- NOTE | 2020-03-26 09:11 | PCM.PN ---
- General Info Date of Service: 03/26/20 Admission Dx/Problem (Free Text): Shortness of breath. - Review of Systems Systems Review Comment:: Janina is seen today on [facility] rounds. She was admitted 03/09- 03/13 inpatient status for COPD exacerbation and LLL infiltrate. She was treated with azithromycin and rocephin. She was admitted to [facility] 03/13-03/23 and was discharged to home. She presented again on 03/24 to the ER with SOB this time felt to be related to volume overload and she was readmitted to [facility] for IV lasix as well as PT eval and treat with potential to discharge to [place] after stable. She was noted to have an NSTEMI, likely type II, with elevated troponin and normal EKG. Troponins have trended down. Weight is down after receiving the lasix and she is now sating 99% on 3L and previously she was in the low to mid 90's on 4L. Wheezing has improved. She overall feels much better. - Patient Data Vitals - Most Recent: Last Vital Signs Temp 98.8 F 03/26/20 06:10 Pulse 88 03/26/20 07:13 Resp 20 03/26/20 06:10 BP 128/59 L 03/26/20 06:10 Pulse Ox 99 03/26/20 07:13 Weight - Most Recent: 214 lb 6 oz I&O - Last 24 Hours: Intake & Output 03/25/20 03/26/20 03/26/20 22:59 06:59 14:59 Intake Total 480 100 Output Total 600 700 Balance -120 -600 Med Orders - Current: Current Medications Acetaminophen (Tylenol Extra Strength) 1,000 mg PO BEDTIME [facility] Last Admin: 03/25/20 21:27 Dose: 1,000 mg Documented by: Albuterol (Proventil Neb Soln) 2.5 mg NEB Q4HRRT [facility] Last Admin: 03/26/20 09:02 Dose: 2.5 mg Documented by: Albuterol (Ventolin Hfa) 0 gm INH Q4H PRN PRN Reason: shortness of breath, wheezing Atorvastatin Calcium (Lipitor) 20 mg PO BEDTIME [facility] Last Admin: 03/25/20 21:28 Dose: 20 mg Documented by: Atropine Sulfate (Atropine 0.1 Mg/Ml) 0.5 - 1 mg IVPUSH ASDIRECTED PRN PRN Reason: Heart. Budesonide (Pulmicort) 0.5 mg INH BIDRT [facility] Last Admin: 03/26/20 07:13 Dose: 0.5 mg Documented by: Docusate Sodium (Colace) 200 mg PO BEDTIME [facility] Last Admin: 03/25/20 21:27 Dose: 200 mg Documented by: Epinephrine HCl (Epinephrine 1:10,000) 1 mg IVPUSH ASDIRECTED PRN PRN Reason: Heart. Furosemide (Lasix) 40 mg IVPUSH DAILY [facility] Last Admin: 03/26/20 08:08 Dose: 40 mg Documented by: Glycopyrrolate (Seebri Neohaler) 15.6 mcg IH BID [facility] Last Admin: 03/25/20 21:37 Dose: 1 inh Documented by: Guaifenesin/Phenylephrine HCl (Robitussin Dm) 10 ml PO Q4H PRN PRN Reason: Cough Lidocaine HCl (Xylocaine 2%) 100 - 150 mg IVPUSH ASDIRECTED PRN PRN Reason: Heart. Lorazepam (Ativan) 2 mg PO DAILY [facility] Last Admin: 03/26/20 08:10 Dose: 2 mg Documented by: Magnesium Hydroxide (Milk Of Magnesia) 30 ml PO DAILY PRN PRN Reason: Constipation Menthol ([place] Sugar Free) 1 shekhar PO ASDIRECTED PRN PRN Reason: Sore Throat Nitroglycerin (Nitrostat) 0.4 mg SL ASDIRECTED PRN PRN Reason: Heart. Anastrozole [ Arimidex] 1 Mg Tab * *Own Med 1 mg PO DAILY [facility] Last Admin: 03/26/20 08:08 Dose: 1 mg Documented by: Omeprazole (Omeprazole) 20 mg PO ACBREAKFAST [facility] Last Admin: 03/26/20 07:33 Dose: 20 mg Documented by: Prednisone (Prednisone) 5 mg PO DAILY [facility] Last Admin: 03/26/20 08:10 Dose: 5 mg Documented by: Psyllium Husk (Metamucil Sugar Free) 1 pkt PO BID [facility] Last Admin: 03/26/20 08:11 Dose: 1 pkt Documented by: Sodium Chloride (Saline Flush) 10 ml FLUSH Q8HR PRN PRN Reason: keep vein open Discontinued Medications Non-Formulary Medication (Albuterol) 2 puff INH Q4H PRN PRN Reason: shortness of breath, wheezing Non-Formulary Medication (Budesonide [Pulmicort]) 0.5 mg IH BID [place] Non-Formulary Medication (Umeclidinium [place] [Incruse Ellipta*]) 1 puff IH DAILY [place] - Exam General: Alert, Oriented, Cooperative, No Acute Distress Lungs: Wheezing (Wheezing is markedly improved from previous examinations.) Cardiovascular: Regular Rate, Regular Rhythm, No Murmurs Extremities: Pedal Edema Sepsis Event Note - Evaluation Sepsis Screening Result: No Definite Risk - Focused Exam Vital Signs: Vital Signs Temp Pulse Resp BP Pulse Ox Pulse Ox 03/26/20 07:13 88 99 03/26/20 07:10 99 03/26/20 06:10 98.8 F 80 20 128/59 L 97 03/26/20 05:12 92 97 03/26/20 05:10 97 03/26/20 02:27 99.0 F 90 20 143/53 H 94 L 03/26/20 02:00 84 94 L 03/25/20 22:16 99.3 F 76 20 120/37 L 97 03/25/20 21:45 76 98 - Problem List Review Problem List Initiated/Reviewed/Updated: Yes - My Orders Last 24 Hours: My Active Orders 03/25/20 09:00 Anastrozole [Arimidex] 1 mg PO DAILY Furosemide [Lasix] 40 mg IVPUSH DAILY Glycopyrrolate [Seebri Neohaler] 15.6 mcg IH BID LORazepam [Ativan] 2 mg PO DAILY predniSONE 5 mg PO DAILY 03/26/20 08:46 BMP [BASIC METABOLIC PANEL,BMP] [CHEM] Routine - Assessment Assessment:: Hospital Problems: Hypervolemia, no hx of CHF, negative BNP COPD Acute kidney injury Cough NSTEMI Type II Secondary problems: BHx breast cancer s/p R mastectomy Anxiety Acid reflux Hyperlipidemia Constipation - Plan Plan:: Hospital Problems: Hypervolemia, no hx of CHF, negative BNP. - Continue lasix 40 mg IV daily - BMP today COPD - Continue albuterol HFA - Continue albuterol nebs - Continue Budesonide - Incruse substituted with [place] while swingbed Acute kidney injury - BMP today - Secondary to furosemide, will monitor with BMP as noted above, no additional IVF's Cough - Green sputum, recently treated for PNA. Will resume azithromycin. NSTEMI Type II Secondary problems: BHx breast cancer s/p R mastectomy - Continue anastrazole Anxiety - Continue lorazepam Acid reflux - Continue omeprazole Hyperlipidemia - Continue atorvastatin Constipation - Continue MOM PRN - Continue metamucil - Continue colace Anticipate [facility] to [facility] facility in 1-2 days. CODE STATUS: DNR/DNI
[2020-03-26] MEDS: Glycopyrrolate 15.6 MCG Cap.W.Dev Kit of 6 IH SCH ×2 (09:49→21:02)
[2020-03-26 09:57] LABS: ANION GAP 7.1 mmol/L (5-15)
[2020-03-26] MEDS ORDERED: Simethicone 80 MG Tab.Chew PO PRN (14:29)
[2020-03-26] MEDS: Acetaminophen 500 MG Tab PO SCH (21:02)
[2020-03-26] MEDS: atorvaSTATin 10 MG Tab PO SCH (21:02)
[2020-03-26] MEDS: Docusate Sodium 100 MG Cap PO SCH (21:02)
[2020-03-27] MEDS: Albuterol 0.083% 2.5 MG/3 ML Neb Soln NEB SCH ×6 (01:32→20:26)
[2020-03-27] MEDS: Budesonide 0.5 MG/2 ML Neb Susp INH SCH ×2 (07:27→20:35)
[2020-03-27] MEDS: Omeprazole 20 MG Cap.CR PO SCH (07:44)
[2020-03-27] MEDS: LORazepam 0.5 MG Tab PO SCH (08:01)
[2020-03-27] MEDS: Furosemide 40 MG/4 ML VIAL IVPUSH SCH (08:01)
[2020-03-27] MEDS: predniSONE 5 MG Tab PO SCH (08:02)
[2020-03-27 08:07] LABS: ANION GAP 2.5 mmol/L (5-15)
[2020-03-27] MEDS: Glycopyrrolate 15.6 MCG Cap.W.Dev Kit of 6 IH SCH ×2 (09:20→20:34)
[2020-03-27] MEDS: Psyllium Husk Powder Sugar Free 5.85 GM Packet PO SCH ×2 (09:31→20:29)
[2020-03-27] MEDS: ANASTROZOLE 1 MG PO SCH (09:31)
[2020-03-27] MEDS ORDERED: Acetaminophen 325 MG Tab PO PRN (11:04)
[2020-03-27] MEDS: Docusate Sodium 100 MG Cap PO SCH (20:27)
[2020-03-27] MEDS: Acetaminophen 500 MG Tab PO SCH (20:27)
[2020-03-27] MEDS: atorvaSTATin 10 MG Tab PO SCH (20:28)
[2020-03-28] MEDS: Albuterol 0.083% 2.5 MG/3 ML Neb Soln NEB SCH ×6 (00:31→20:01)
[2020-03-28] MEDS: Budesonide 0.5 MG/2 ML Neb Susp INH SCH ×2 (07:25→19:56)
[2020-03-28] MEDS: Omeprazole 20 MG Cap.CR PO SCH (07:41)
[2020-03-28] MEDS: Furosemide 40 MG/4 ML VIAL IVPUSH SCH (08:20)
[2020-03-28] MEDS: predniSONE 5 MG Tab PO SCH (08:20)
[2020-03-28] MEDS: Psyllium Husk Powder Sugar Free 5.85 GM Packet PO SCH ×2 (08:20→20:50)
[2020-03-28] MEDS: LORazepam 0.5 MG Tab PO SCH (08:20)
[2020-03-28] MEDS: ANASTROZOLE 1 MG PO SCH (08:21)
[2020-03-28] MEDS: Glycopyrrolate 15.6 MCG Cap.W.Dev Kit of 6 IH SCH ×2 (09:37→20:51)
[2020-03-28] MEDS: atorvaSTATin 10 MG Tab PO SCH (20:51)
[2020-03-28] MEDS: Docusate Sodium 100 MG Cap PO SCH (20:51)
[2020-03-28] MEDS: Acetaminophen 500 MG Tab PO SCH (20:51)
[2020-03-29] MEDS: Albuterol 0.083% 2.5 MG/3 ML Neb Soln NEB SCH ×3 (00:26→08:30)
[2020-03-29 06:02] VITALS: BP 160/67
[2020-03-29] MEDS: Omeprazole 20 MG Cap.CR PO SCH (06:56)
[2020-03-29] MEDS: Budesonide 0.5 MG/2 ML Neb Susp INH SCH (07:07)
[2020-03-29] MEDS: Psyllium Husk Powder Sugar Free 5.85 GM Packet PO SCH (08:02)
[2020-03-29] MEDS: LORazepam 0.5 MG Tab PO SCH (08:03)
[2020-03-29] MEDS: Furosemide 40 MG/4 ML VIAL IVPUSH SCH (08:03)
[2020-03-29] MEDS: predniSONE 5 MG Tab PO SCH (08:03)
[2020-03-29] MEDS: ANASTROZOLE 1 MG PO SCH (08:03)
[2020-03-29] MEDS: Glycopyrrolate 15.6 MCG Cap.W.Dev Kit of 6 IH SCH (08:33)
[2020-03-29 09:03] VITALS: PULSE 84
--- NOTE | 2020-03-29 15:11 | DISCH ---
HISTORY OF PRESENT ILLNESS: The patient has been an inpatient from March 09 to March 13, at which time, she was transferred to swing bed care on March 13 and stayed in swing bed care until March 23, 2020. She was discharged to home. She presented again on 03/24/2020 to the ER with shortness of breath, this time felt to be related to volume overload. She was readmitted to swing bed for IV Lasix as well as physical therapy evaluation and treatment with potential to discharge to [facility] after stable. She was noted to have a non STEMI, likely type 2 with elevated troponin and normal EKG. Troponins have trended downwards. Weight is down after receiving Lasix and she is now saturating 99% on 3 L. Previously, she was low to mid 90s on 4 L. Wheezing has improved. Overall, she feels much better. Physical Therapy has been working with her. She is planning to be discharged today and transferred to [facility] in [place], [place]. The patient had lab work done on March 27, 2020. Her white count was normal, hemoglobin 8.6. BUN and creatinine were 16 and 1.06, which are both normal. She has had some chronic renal insufficiency in the past. COVID-19 test was negative. The patient does have COPD and was initially hospitalized for COPD exacerbation. Her Flovent was discontinued and replaced with budesonide. She is also using Incruse Ellipta as well as albuterol per nebulizer and handheld. She has history of breast cancer and is taking Arimidex, also known as anastrozole. She has hypercholesterolemia and is taking atorvastatin. She has congestive heart failure/fluid overload and is taking furosemide. She has anxiety and uses lorazepam. She has constipation for which she takes milk of magnesia as well as Metamucil. She has gastroesophageal reflux disease and is taking omeprazole. She had does take a daily dose of prednisone for her COPD. PHYSICAL EXAMINATION: VITAL SIGNS: Temp is 98.2, pulse 84, respirations 20, blood pressure 160/67, O2 saturation is 95% on 3 L of oxygen. SKIN: Warm, pale, dry to touch. CARDIAC: Reveals S1, S2 to be normal. Rate and rhythm are regular. No murmur, click, or gallop is auscultated. She does have some diffuse wheezing, inspiratory and expiratory. However, these are much improved from previous assessments. ABDOMEN: Soft, nontender, obese. Bowel sounds present in all four quadrants. There is a trace of pedal edema. IMPRESSION: 1. Fluid overload, prompting readmission to swing bed status after being discharged from swing bed. She has improved from this standpoint and is feeling much better and is ready to be transferred to long-term care. She declined the local [facility] due to the fact that they did not have air conditioning units in the room. She will continue on budesonide, improves as well as albuterol and prednisone. She will be followed by while at the [facility]. 2. Fluid overload. This is improved and this is actually the main reason why she was readmitted. 3. Gastroesophageal reflux disease, stable on proton pump inhibitor. She will continue on oral furosemide at home. 4. Anxiety, stable with lorazepam. 5. Hypercholesterolemia. Continue atorvastatin. 6. Breast cancer, status post right mastectomy. She will continue on anastrozole. /[id number]/MODL
== END 2020-03-29 09:49 | DRG 640 ==
LOC: KA.MS 15:41
PROVIDERS: ADMIT Physician Assistant Medical; ATTEND Internal Medicine
DX: E87.70 Fluid overload, unspecified (principal); I21.A1 Myocardial infarction type 2; J44.1 Chronic obstructive pulmonary disease with (acute) exacerbation; N17.9 Acute kidney failure, unspecified; K21.9 Gastro-esophageal reflux disease without esophagitis; F41.9 Anxiety disorder, unspecified; E78.5 Hyperlipidemia, unspecified; Z66 Do not resuscitate; K59.00 Constipation, unspecified; E78.00 Pure hypercholesterolemia, unspecified; J44.9 Chronic obstructive pulmonary disease, unspecified; Z85.3 Personal history of malignant neoplasm of breast; E66.9 Obesity, unspecified; Z79.52 Long term (current) use of systemic steroids; Z79.899 Other long term (current) drug therapy; Z98.49 Cataract extraction status, unspecified eye
CPT/HCPCS: 36415; 80048; 84484; 85025; 94640; 97110-GP; 97162-GP; 99307; 99315; A9270-GY; J1940; J7512; J7613-GY; U0002